=== PATIENT | male | born 1940 | race Caucasian/White ===

== ENCOUNTER → 2016-10-02 | Outpatient (CLI) | payer MEDICARE, MEDICAID | LOC: OD 10:56 | PROVIDERS: ATTEND Physician Assistant Medical | DX: R06.02 Shortness of breath (principal); J44.9 Chronic obstructive pulmonary disease, unspecified | CPT/HCPCS: 71020 ==

== ENCOUNTER → 2017-03-08 | Outpatient (CLI) | payer MEDICARE ==
--- NOTE | 2017-03-08 15:38 | RADIOLOGY REPORT (SQ) ---
EXAM DESCRIPTION: CT CHEST WITHOUT COMPLETED DATE/TIME: 03/08/2017 10:58 am REASON FOR STUDY: BRONCHIECTASIS J47.9 BRONCHIECTASIS, UNCOMPLICATED COMPARISON: None. TECHNIQUE: CT scan performed of the chest without intravenous contrast. Images reviewed with lung, soft tissue and bone windows. Reconstructed coronal and sagittal MPR images reviewed. All images st ored on PACS. All CT scanners at this facility use dose modulation, iterative reconstruction, and/or weight based d osing when appropriate to reduce radiation dose to as low as reasonably achievable (ALARA). [facility]: Dose Right [facility]: CareDose [facility]: Dose Right [facility]: Teradose 4D [facility]: Smart Cocodot RADIATION DOSE: Up-to-date CT equipment and radiation dose reduction techniques were employed. CTDIv ol: 8.1 mGy. DLP: 302 mGy-cm. mGy. LIMITATIONS: No technical limitations. FINDINGS: LUNGS AND PLEURA: Segmental bronchiectasis left lower lobe. Subsegmental bronchiectasis i n the lingula. No masses, infiltrates, pneumothorax. No pleural effusions, calcifications. HILAR AND MEDIASTINAL STRUCTURES: No identified masses or abnormal nodes. No obvious aneurysm. HEART AND VASCULAR STRUCTURES: No aneurysm. No pericardial effusion. UPPER ABDOMEN: No significant findings. Limited exam. THYROID AND OTHER SOFT TISSUES: No masses. No adenopathy. BONES: No significant finding. HARDWARE: None in the chest. OTHER: No other significant findings. IMPRESSION: Bronchiectasis left upper and lower lobes. No evidence of pulmonary fibrosis. TECHNICAL DOCUMENTATION: JOB ID: [id number] Quality ID # [id number]: Final reports with documentation of one or more dose reduction techniques (e.g., Au tomated exposure control, adjustment of the mA and/or kV according to patient size, use of iterative reconstruction technique) 2010 [employer] All Rights Reserved
== END ==
LOC: RAD 10:46
PROVIDERS: ATTEND Internal Medicine Pulmonary Disease
DX: J47.9 Bronchiectasis, uncomplicated (principal)
CPT/HCPCS: 71250

== ENCOUNTER 2017-05-17 12:23 | Inpatient (IN) | payer MEDICARE, MEDICAID ==
[2017-05-17] MEDS ORDERED: NORMAL SALINE 1000 ML 1,000 ML IV ONE (12:37)
[2017-05-17] MEDS ORDERED: NORMAL SALINE 500 ML IV ONE (12:37)
[2017-05-17 12:50] LABS: HEMATOCRIT 34.3 % (37.9-51.0); HEMOGLOBIN 11.3 g/dL (13.5-17.0); HGB HCT DIFFERENCE -0.4; MEAN CORPUSCULAR HEMOGLOBIN 27.8 pg (27.0-33.4); MEAN CORPUSCULAR HGB CONC 32.9 g/dL (32.0-36.0); MEAN CORPUSCULAR VOLUME 84 fl (80-97); RED BLOOD COUNT 4.06 10^6/uL (4.35-5.55); RED CELL DISTRIBUTION WIDTH 15.6 % (11.5-14.0); VENOUS BLOOD HCO3 29.6 mmol/L (20-32); VENOUS BLOOD PCO2 48.8 mmHg (35-63); VENOUS BLOOD PH 7.4 (7.30-7.42); WHITE BLOOD COUNT 11.4 10^3/uL (4.0-10.5)
[2017-05-17 12:58] LABS: PROTHROMBIN TIME 19.4 SEC (11.4-15.4)
--- NOTE | 2017-05-17 13:08 | RADIOLOGY REPORT (SQ) ---
EXAM DESCRIPTION: CHEST SINGLE VIEW COMPLETED DATE/TIME: 05/17/2017 12:55 pm REASON FOR STUDY: fever pna COMPARISON: Chest x-ray 10/02/[address] 03/08/2017 EXAM PARAMETERS: NUMBER OF VIEWS: One view. TECHNIQUE: Single frontal radiographic view of the chest acquired. RADIATION DOSE: NA LIMITATIONS: None. FINDINGS: LUNGS AND PLEURA: There is increased opacification left base. Patient has known bronchiec tasis. MEDIASTINUM AND HILAR STRUCTURES: No masses. Contour normal. HEART AND VASCULAR STRUCTURES: Heart normal in size. Normal vasculature. BONES: No acute findings. HARDWARE: None in the chest. OTHER: No other significant finding. IMPRESSION: Left lower lobe pneumonia superimposed upon bronchiectasis. TECHNICAL DOCUMENTATION: JOB ID: [id number]
[2017-05-17] MEDS ORDERED: LEVOFLOXACIN 500 MG/D5W RTU 500 MG/100 ML RTUPB IV ONE (13:13)
[2017-05-17 13:17] LABS: ALANINE AMINOTRANSFERASE 26 U/L (21-72); ALKALINE PHOSPHATASE 119 U/L (38-126); ANION GAP 15 (5-19); ASPARTATE AMINO TRANSFERASE 14 U/L (17-59); BILIRUBIN,DIRECT 0.4 mg/dL (0.0-0.4); BILIRUBIN,TOTAL 1.2 mg/dL (0.2-1.3); BLOOD UREA NITROGEN 15 mg/dL (7-20); CALCIUM 9.5 mg/dL (8.4-10.2); CARBON DIOXIDE 27 mmol/L (22-30); CHLORIDE 101 mmol/L (98-107); CREATININE RESULT 1.09 mg/dL (0.52-1.25); GLUCOSE 241 mg/dL (75-110); SODIUM 143.3 mmol/L (137-145); TOTAL PROTEIN 7.1 g/dL (6.3-8.2)
[2017-05-17 13:18] LABS: BASOPHILS % (MANUAL) 0 % (0-2); EOSINOPHILS % (MANUAL) 0 % (0-6); LYMPHOCYTES % (MANUAL) 3 % (13-45); TOTAL CELLS COUNTED 100
[2017-05-17 13:22] LABS: ANISOCYTOSIS 1+; OVALOCYTES 1+; POIKILOCYTOSIS 1+
[2017-05-17 13:23] LABS: HYPOCHROMASIA SLIGHT
[2017-05-17 13:30] LABS: TROPONIN I 0.029 ng/mL
[2017-05-17 13:37] LABS: APPEARANCE,URINE CLEAR; BILIRUBIN,URINE NEGATIVE (NEGATIVE); GLUCOSE, URINE NEGATIVE (NEGATIVE); KETONES,URINE NEGATIVE (NEGATIVE); LEUKOCYTE ESTERASE,URINE NEGATIVE (NEGATIVE); NITRITE,URINE NEGATIVE (NEGATIVE); PROTEIN,URINE NEGATIVE (NEGATIVE); URINE SPECIFIC GRAVITY 1.009; UROBILINOGEN,URINE NEGATIVE mg/dL (<2.0)
--- NOTE | 2017-05-17 14:02 | ER Document Report ---
ED General - General Chief Complaint: Productive Cough Stated Complaint: FEVER Time Seen by Provider: 05/17/17 12:36 TRAVEL OUTSIDE OF THE [place] IN LAST 30 DAYS: No - HPI Patient complains to provider of: Productive cough shortness of breath Notes: Patient presents today from home arrival by EMS for productive cough fever shortness of breath patient is on home O2 states increased and short of breath over the last few days. States productive cough with green sputum. Denies any chest pain abdominal pain. Patient states fever at home with night sweats and chills. Upon my evaluation patient has audible wheezing. Patient denies current history of smoking. Denies any recent hospitalizations or antibiotics. - Related Data Allergies/Adverse Reactions: No Known Allergies Allergy (Unverified 01/29/16 13:36) Past Medical History - Social History Smoking Status: Never Smoker Chew tobacco use (# tins/day): No Frequency of alcohol use: None Drug Abuse: None Family History: Reviewed & Not Pertinent Patient has suicidal ideation: No Patient has homicidal ideation: No - Past Medical History Cardiac Medical History: Reports: Hx Hypertension Denies: Hx Heart Attack Pulmonary Medical History: Reports: Hx Asthma, Hx COPD Neurological Medical History: Denies: Hx Cerebrovascular Accident, Hx Seizures Renal/ Medical History: Denies: Hx Peritoneal Dialysis GI Medical History: Denies: Hx Hepatitis, Hx Hiatal Hernia, Hx Ulcer Infectious Medical History: Denies: Hx Hepatitis Past Surgical History: Denies: Hx Open Heart Surgery, Hx Pacemaker Review of Systems - Review of Systems Constitutional: Chills, Fever EENT: No symptoms reported Cardiovascular: No symptoms reported Respiratory: Cough, Short of breath, Sputum, Wheezing Gastrointestinal: No symptoms reported Genitourinary: No symptoms reported Male Genitourinary: No symptoms reported Musculoskeletal: No symptoms reported Skin: No symptoms reported Hematologic/Lymphatic: No symptoms reported Neurological/Psychological: No symptoms reported -: Yes All other systems reviewed and negative Physical Exam - Vital signs Vitals: Temp Pulse Resp BP Pulse Ox 98.9 F 96 20 143/43 H 95 05/17/17 12:31 05/17/17 12:31 05/17/17 12:31 05/17/17 12:31 05/17/17 12:31 Interpretation: Normal - General General appearance: Appears well, Alert - HEENT Head: Normocephalic, Atraumatic Eyes: Normal Pupils: PERRL - Respiratory Respiratory status: No respiratory distress Chest status: Nontender Breath sounds: Rales, Rhonchi Chest palpation: Normal - Cardiovascular Rhythm: Regular Heart sounds: Normal auscultation Murmur: No - Abdominal Inspection: Normal Distension: No distension Bowel sounds: Normal Tenderness: Nontender Organomegaly: No organomegaly - Back Back: Normal, Nontender - Extremities General upper extremity: Normal inspection, Nontender, Normal color, Normal ROM , Normal temperature General lower extremity: Normal inspection, Nontender, Normal color, Normal ROM , Normal temperature, Normal weight bearing. No: Primo's sign - Neurological Neuro grossly intact: Yes Cognition: Normal Orientation: AAOx4 Carlos Coma Scale Eye Opening: Spontaneous [place] Coma Scale Verbal: Oriented Carlos Coma Scale Motor: Obeys Commands [place] Coma Scale Total: 15 Speech: Normal Motor strength normal: LUE, RUE, LLE, RLE Sensory: Normal - Psychological Associated symptoms: Normal affect, Normal mood - Skin Skin Temperature: Warm Skin Moisture: Dry Skin Color: Normal Course - Re-evaluation Re-evalutation: 05/17/17 15:42 Patient's evaluation and chest x-ray showed pneumonia. Will admit the patient for further evaluation to the hospital service. - Vital Signs Vital signs: Temp Pulse Resp BP Pulse Ox 98.9 F 96 21 H 119/105 H 96 05/17/17 12:31 05/17/17 12:31 05/17/17 15:03 05/17/17 15:03 05/17/17 15:03 - Laboratory Result Diagrams: 05/17/17 12:30 05/17/17 12:30 Laboratory results interpreted by me: 05/17/17 05/17/17 05/17/17 12:30 12:30 12:30 WBC 11.4 H RBC 4.06 L Hgb 11.3 L Hct 34.3 L RDW 15.6 H Seg Neuts % (Manual) 92 H Lymphocytes % (Manual) 3 L Abs Neuts (Manual) 10.5 H Abs Lymphs (Manual) 0.3 L PT 19.4 H Glucose 241 H Lactic Acid AST 14 L NT-Pro-B Natriuret Pep Urine Blood 05/17/17 05/17/17 05/17/17 12:30 12:30 13:10 WBC RBC Hgb Hct RDW Seg Neuts % (Manual) Lymphocytes % (Manual) Abs Neuts (Manual) Abs Lymphs (Manual) PT Glucose Lactic Acid 2.3 H AST NT-Pro-B Natriuret Pep 1330 H Urine Blood SMALL H Discharge - Discharge Clinical Impression: Pneumonia Qualifiers: Pneumonia type: due to unspecified organism Laterality: left Lung location: lower lobe of lung Qualified Code(s): J18.1 - Lobar pneumonia, unspecified organism COPD (chronic obstructive pulmonary disease) Qualifiers: COPD type: COPD with acute exacerbation Qualified Code(s): J44.1 - Chronic obstructive pulmonary disease with (acute) exacerbation Fever Qualifiers: Fever type: unspecified Qualified Code(s): R50.9 - Fever, unspecified Condition: Good Disposition: ADMITTED INPATIENT Admitting Provider: Maninder John Unit Admitted: Telemetry
[2017-05-17] MEDS ORDERED: ACETAMINOPHEN 325 MG TABLET PO PRN (15:00)
[2017-05-17] MEDS ORDERED: OXYCODONE HCL IR 5 MG TABLET PO PRN (15:11)
[2017-05-17] MEDS ORDERED: GLUCAGON,HUMAN RECOMB 1 MG INJ IM PRN (15:13)
[2017-05-17] MEDS ORDERED: DEXTROSE 50%-WATER 25 GM/50 ML DISP.SYRIN IV PRN ×2 (15:13)
[2017-05-17] MEDS ORDERED: DEXTROSE 40% GEL 15 GM TUBE PO PRN ×2 (15:13)
--- NOTE | 2017-05-17 15:24 | PDOC H&P ---
History of Present Illness Admission Date/PCP: 05/17/17 14:33 Patient complains of: Shortness of breath History of Present Illness: HAWA YANG is a 76 year old male, with long history of COPD apparently started to develop shortness of breath of 2-3 days duration. It is associated with cough productive of yellowish phlegm with associated wheezing. No paroxysmal nocturnal dyspnea nor orthopnea. No definite fever but there is sweating. There is mild pleurisy on the left. Symptoms persisted and would not go away. No sinus congestion or sore throat. No nausea or vomiting. No diarrhea. Patient went to the emergency room for evaluation. Patient found to have an infiltrate on chest x-ray. Antibiotics was given. As well as bronchodilators. Patient was then referred for admission. No dizziness lightheadedness or syncope. Past Medical History Cardiac Medical History: Reports: Hypertension Denies: Myocardial Infarction Pulmonary Medical History: Reports: Asthma, Chronic Obstructive Pulmonary Disease (COPD) Neurological Medical History: Denies: Seizures Endocrine Medical History: Reports: Diabetes Mellitus Type 2 GI Medical History: Denies: Hepatitis, Hiatal Hernia Hematology: Reports: Anemia - NOW ON IRON PILLS Denies: Sickle Cell Disease Past Surgical History Past Surgical History: Denies any surgery recently. Past Surgical History: Denies: Pacemaker Social History Information Source: Patient Smoking Status: Never Smoker Frequency of Alcohol Use: None Hx Recreational Drug Use: No Drugs: None Family History Family History: DM, Hypertension Parental Family History Reviewed: Yes Children Family History Reviewed: Yes Sibling(s) Family History Reviewed.: Yes Medication/Allergy Home Medications: Acetylcysteine [Nac] 500 mg PO BID 01/29/16 Albuterol Sulfate [Proair HFA] 1 - 2 puff IH Q4 PRN 01/29/16 Aspirin [Aspirin 81 mg Chewable Tablet] 81 mg PO DAILY 01/29/16 Budesonide/Formoterol Fumarate [Symbicort Hfa 160-4.5 Mcg Inhaler 6 gm] 2 puff IH Q12 01/29/16 Digoxin [Digitek] 125 mcg PO DAILY 01/29/16 Furosemide [Lasix 40 mg Tablet] 40 mg PO DAILY 01/29/16 Glipizide [Glipizide Xl] 10 mg PO DAILY 01/29/16 Iron Ps Complex/B12/Folic Acid [Ferrex 150 Forte Capsule] 1 each PO DAILY Levalbuterol HCl 1.25 mg IH Q6H 01/29/16 Lisinopril 5 mg PO DAILY 01/29/16 Metoprolol Succinate 25 mg PO DAILY 01/29/16 Montelukast Sodium [Singulair 10 mg Tablet] 10 mg PO QHS 01/29/16 Omeprazole 40 mg PO BID 01/29/16 Oxycodone HCl 5 mg PO Q4H PRN 01/29/16 Roflumilast [Daliresp 500 mcg Tablet] 500 mcg PO DAILY 01/29/16 Sertraline HCl 100 mg PO QHS 01/29/16 Tiotropium [place] [Spiriva Handihaler 18 mcg/dose (30 Dose)] 2 cap IH DAILY Iron Ps Complex/B12/Folic Acid [Ferrex 150 Forte Capsule] 1 each PO QHS Allergies/Adverse Reactions: No Known Allergies Allergy (Unverified 01/29/16 13:36) Review of Systems Constitutional: PRESENT: chills, weakness - Generalized. ABSENT: fever(s), headache(s), night sweats, weight gain, weight loss Eyes: ABSENT: visual disturbances Ears: ABSENT: hearing changes Nose, Mouth, and Throat: ABSENT: mouth pain, sore throat Cardiovascular: PRESENT: dyspnea on exertion - Chronic. ABSENT: chest pain, edema, orthropnea, palpitations Respiratory: PRESENT: cough, dyspnea, sputum. ABSENT: hemoptysis Gastrointestinal: ABSENT: abdominal pain, bloating, constipation, diarrhea, hematemesis, hematochezia, melena, nausea, vomiting Genitourinary: ABSENT: difficulty urinating, dysuria, hematuria Musculoskeletal: ABSENT: joint swelling Integumentary: ABSENT: rash, wounds Neurological: ABSENT: abnormal gait, abnormal speech, confusion, dizziness, focal weakness, syncope Psychiatric: ABSENT: anxiety, depression, homidical ideation, suicidal ideation Endocrine: ABSENT: cold intolerance, heat intolerance, polydipsia, polyphagia, polyuria Hematologic/Lymphatic: ABSENT: easy bleeding, easy bruising Physical Exam Vital Signs: Temp Pulse Resp BP Pulse Ox 98.9 F 96 21 H 119/105 H 96 05/17/17 12:31 05/17/17 12:31 05/17/17 15:03 05/17/17 15:03 05/17/17 15:03 Results Impressions: Chest X-Ray 05/17/17 12:37 IMPRESSION: Left lower lobe pneumonia superimposed upon bronchiectasis. Assessment & Plan - Diagnosis (1) Pneumonia Qualifiers: Pneumonia type: due to unspecified organism Laterality: left Lung location: lower lobe of lung Qualified Code(s): J18.1 - Lobar pneumonia, unspecified organism Is this a current diagnosis for this admission?: Yes (2) COPD (chronic obstructive pulmonary disease) Qualifiers: COPD type: COPD with acute exacerbation Qualified Code(s): J44.1 - Chronic obstructive pulmonary disease with (acute) exacerbation Is this a current diagnosis for this admission?: Yes (3) Bronchiectasis Qualifiers: Bronchiectasis type: uncomplicated Qualified Code(s): J47.9 - Bronchiectasis, uncomplicated Is this a current diagnosis for this admission?: Yes (4) Essential hypertension Is this a current diagnosis for this admission?: Yes (5) Type 2 diabetes mellitus Qualifiers: Diabetes mellitus complication status: with unspecified complications Diabetes mellitus intermodal dispatcher insulin use: without intermodal dispatcher use Qualified Code( s): E11.8 - Type 2 diabetes mellitus with unspecified complications Is this a current diagnosis for this admission?: Yes - Time Time Spent: 50 to 70 Minutes - Inpatient Certification Based on my medical assessment, after consideration of the patient's comorbidities, presenting symptoms, or acuity I expect that the services needed warrant INPATIENT care.: Yes Medical Necessity: Need Close Monitoring Due to Risk of Patient Decompensation, Need For IV Fluids, Need for IV Antibiotics, Risk of Diagnosis Which Will Require Inpatient Eval/Care/Monitoring Post 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 Culture the blood and sputum. The patient will be started on cefepime and ciprofloxacin intravenously. In the meantime we will put the patient on [id number] nebulizer and steroids. Supplemental oxygen will be given. Analgesics and antipyretics as needed will also be started. He will be on DVT prophylaxis with Lovenox. Sliding scale insulin will be done. Further testing depends on the initial evaluation as outlined above.
[2017-05-17] MEDS ORDERED: DIGOXIN 0.125 MG TABLET PO ONE (16:00)
[2017-05-17] MEDS ORDERED: CEFEPIME 2 GM/D5W RTU 2 GM/50 ML RTUPB IV ONE (16:00)
[2017-05-17] MEDS ORDERED: METOPROLOL SUCCINATE 25 MG TAB.SR.24H PO ONE (16:00)
[2017-05-17] MEDS ORDERED: LANSOPRAZOLE 30 MG TAB.RAP.DR PO ONE (16:00)
[2017-05-17] MEDS ORDERED: GLIPIZIDE XL 5 MG TAB.ER.24 PO ONE (16:00)
[2017-05-17] MEDS ORDERED: ASPIRIN 81 MG TABLET, CHEWABLE PO ONE (16:00)
[2017-05-17] MEDS ORDERED: LISINOPRIL 5 MG TABLET PO ONE (16:00)
[2017-05-17] MEDS ORDERED: PREDNISONE 20 MG TABLET PO ONE (16:00)
[2017-05-17] MEDS: IPRATROPIUM/ALBUTEROL 0.5-2.5 MG/3 ML AMPUL NEB SCH ×3 (16:57→23:51)
[2017-05-17] MEDS ORDERED: ACETYLCYSTEINE 500 MG PO SCH (18:00)
--- NOTE | 2017-05-17 18:14 | EKG REPORT ---
SEVERITY:- ABNORMAL ECG - SINUS RHYTHM LEFT ANTERIOR FASCICULAR BLOCK CONSIDER TRUE POSTERIOR WALL [place] , CLINICAL CORRELATION NEEDED. : Confirmed by: Quang Yan MD 17-May-2017 18:14:30
[2017-05-17] MEDS: LANSOPRAZOLE 30 MG TAB.RAP.DR PO SCH (18:16)
[2017-05-17] MEDS: SERTRALINE HCL 50 MG TABLET PO SCH (21:46)
[2017-05-17] MEDS: GUAIFENESIN 600 MG TABLET.SA PO SCH (21:46)
[2017-05-17] MEDS: INSULIN REG, HUMAN 100 UNIT/ML 3 ML VIAL (PYX) SUBCUT PRN (21:47)
[2017-05-18] MEDS: IPRATROPIUM/ALBUTEROL 0.5-2.5 MG/3 ML AMPUL NEB SCH ×5 (03:54→19:38)
[2017-05-18] MEDS ORDERED: LANSOPRAZOLE 30 MG TAB.RAP.DR PO SCH (06:00)
[2017-05-18] MEDS: CEFEPIME 2 GM/D5W RTU 2 GM/50 ML RTUPB IV SCH ×2 (06:25→18:19)
[2017-05-18 07:07] LABS: HEMATOCRIT 32.8 % (37.9-51.0); HEMOGLOBIN 10.8 g/dL (13.5-17.0); HGB HCT DIFFERENCE -0.4; MEAN CORPUSCULAR HEMOGLOBIN 27.6 pg (27.0-33.4); MEAN CORPUSCULAR HGB CONC 32.9 g/dL (32.0-36.0); MEAN CORPUSCULAR VOLUME 84 fl (80-97); RED CELL DISTRIBUTION WIDTH 15.3 % (11.5-14.0); WHITE BLOOD COUNT 8.5 10^3/uL (4.0-10.5)
[2017-05-18 07:25] LABS: ANION GAP 14 (5-19); BLOOD UREA NITROGEN 14 mg/dL (7-20); CALCIUM 9.3 mg/dL (8.4-10.2); CARBON DIOXIDE 26 mmol/L (22-30); CHLORIDE 102 mmol/L (98-107); CREATININE RESULT 0.93 mg/dL (0.52-1.25); GLUCOSE 211 mg/dL (75-110); POTASSIUM 4.3 mmol/L (3.6-5.0)
[2017-05-18 07:47] LABS: BASOPHILS % (MANUAL) 0 % (0-2); EOSINOPHILS % (MANUAL) 0 % (0-6); LYMPHOCYTES % (MANUAL) 3 % (13-45); TOTAL CELLS COUNTED 100
[2017-05-18 07:48] LABS: ANISOCYTOSIS SLIGHT; TOXIC GRANULATION 1+
[2017-05-18] MEDS: INSULIN REG, HUMAN 100 UNIT/ML 3 ML VIAL (PYX) SUBCUT PRN ×2 (09:12→18:19)
[2017-05-18] MEDS: LANSOPRAZOLE 30 MG TAB.RAP.DR PO SCH ×2 (09:13→18:19)
[2017-05-18] MEDS: ASPIRIN 81 MG TABLET, CHEWABLE PO SCH (09:13)
[2017-05-18] MEDS: ENOXAPARIN SODIUM INJ 40 MG/0.4 ML DISP.SYRIN SUBCUT SCH (09:13)
[2017-05-18] MEDS: GLIPIZIDE XL 5 MG TAB.ER.24 PO SCH (09:15)
[2017-05-18] MEDS: PREDNISONE 20 MG TABLET PO SCH (09:16)
[2017-05-18] MEDS: LISINOPRIL 10 MG TABLET PO SCH (09:16)
[2017-05-18] MEDS: GUAIFENESIN 600 MG TABLET.SA PO SCH ×2 (09:16→21:29)
[2017-05-18] MEDS: CIPROFLOXACIN 400 MG/D5W RTU 400 MG/200 ML RTUPB IV SCH ×2 (09:17→21:30)
[2017-05-18] MEDS: DIGOXIN 0.125 MG TABLET PO SCH (09:17)
[2017-05-18] MEDS: METOPROLOL SUCCINATE 25 MG TAB.SR.24H PO SCH (09:17)
[2017-05-18] MEDS: NORMAL SALINE 1000 ML 1,000 ML IV PRN (12:53)
--- NOTE | 2017-05-18 14:41 | PDOC PROGRESS REPORT ---
Subjective Progress Note for:: 05/18/17 Subjective:: Complains of cough. Physical Exam Vital Signs: Temp Pulse Resp BP Pulse Ox 97.3 F 73 18 117/88 H 100 05/18/17 12:15 05/18/17 12:15 05/18/17 12:15 05/18/17 12:15 05/18/17 12:15 Pulse Oximeter Continuous Start: 05/17/17 15: 05 Freq: RTQ4 Status: Active Document 05/18/17 12:15 LDA (Rec: 05/18/17 12:26 LDA [email or web address]) Pulse Oximetry Assessment Oxygen Saturation (92-100) 99 Oxygen Flow Rate (L/min) 2 Oxygen Delivery Method Nasal Cannula Equipment Usage Equipment in Use Continuous SpO2 Machine # n-[id number] Intake & Output 05/17/17 05/18/17 05/19/17 06:59 06:59 06:59 Intake Total 983 Output Total 650 Balance 333 Weight 72.575 kg General appearance: PRESENT: no acute distress Eye exam: PRESENT: conjunctiva pink. ABSENT: scleral icterus Mouth exam: PRESENT: moist, tongue midline Neck exam: ABSENT: JVD Respiratory exam: PRESENT: rhonchi - Coarse rhonchi bilaterally.. ABSENT: rales , wheezes Cardiovascular exam: PRESENT: RRR. ABSENT: diastolic murmur, rubs, systolic murmur GI/Abdominal exam: PRESENT: normal bowel sounds, soft. ABSENT: distended, guarding, mass, organolmegaly, rebound, tenderness Extremities exam: ABSENT: calf tenderness, clubbing, pedal edema Neurological exam: PRESENT: alert, awake, oriented to person, oriented to place , oriented to time, oriented to situation, CN II-XII grossly intact. ABSENT: motor sensory deficit Psychiatric exam: PRESENT: appropriate affect Skin exam: PRESENT: dry, intact, warm. ABSENT: cyanosis, rash Results Laboratory Results: 05/18/17 06:31 05/18/17 06:31 05/17/17 05/18/17 05/18/17 17:15 06:31 06:31 WBC 8.5 RBC 3.90 L Hgb 10.8 L Hct 32.8 L MCV 84 MCH 27.6 MCHC 32.9 RDW 15.3 H Plt Count 200 Seg Neutrophils % Not Reportable Lymphocytes % Not Reportable Monocytes % Not Reportable Eosinophils % Not Reportable Basophils % Not Reportable Absolute Neutrophils Not Reportable Absolute Lymphocytes Not Reportable Absolute Monocytes Not Reportable Absolute Eosinophils Not Reportable Absolute Basophils Not Reportable Sodium 142.0 Potassium 4.3 Chloride 102 Carbon Dioxide 26 Anion Gap 14 BUN 14 Creatinine 0.93 Est GFR ( Amer) > 60 Est GFR (Non-Af Amer) > 60 Glucose 211 H Lactic Acid 2.2 H Calcium 9.3 Impressions: Chest X-Ray 05/17/17 12:37 IMPRESSION: Left lower lobe pneumonia superimposed upon bronchiectasis. Assessment & Plan - Diagnosis (1) Pneumonia Qualifiers: Pneumonia type: due to unspecified organism Laterality: left Lung location: lower lobe of lung Qualified Code(s): J18.1 - Lobar pneumonia, unspecified organism Is this a current diagnosis for this admission?: Yes Plan: Patient has pneumonia superimposed on the chronic bronchiectasis. Has been started on cefepime and Cipro. Cultures are negative so far. Also continue with nebulizers. (2) Bronchiectasis Qualifiers: Bronchiectasis type: uncomplicated Qualified Code(s): J47.9 - Bronchiectasis, uncomplicated Is this a current diagnosis for this admission?: Yes Plan: Continue with antibiotics and prednisone. (3) COPD (chronic obstructive pulmonary disease) Qualifiers: COPD type: COPD with acute exacerbation Qualified Code(s): J44.1 - Chronic obstructive pulmonary disease with (acute) exacerbation Is this a current diagnosis for this admission?: Yes Plan: Continue with steroids and nebulizers. (4) Essential hypertension Is this a current diagnosis for this admission?: Yes (5) Type 2 diabetes mellitus Qualifiers: Diabetes mellitus complication status: with unspecified complications Diabetes mellitus [facility] insulin use: without termite control servicer use Qualified Code( s): E11.8 - Type 2 diabetes mellitus with unspecified complications Is this a current diagnosis for this admission?: Yes Plan: Continue with oral agents and sliding scale insulin. - Time Time Spent with patient: 25-34 minutes - Inpatient Certification Medical Necessity: Need for IV Antibiotics
[2017-05-18] MEDS: SERTRALINE HCL 50 MG TABLET PO SCH (21:29)
[2017-05-18] MEDS: IPRATROPIUM BROMIDE 0.02% NEB 0.5 MG/2.5 ML AMPUL NEB SCH (22:08)
[2017-05-18] MEDS: LEVALBUTEROL HCL NEB 1.25 MG/3 ML AMPUL NEB SCH (22:09)
[2017-05-19] MEDS: IPRATROPIUM/ALBUTEROL 0.5-2.5 MG/3 ML AMPUL NEB SCH
[2017-05-19] MEDS: LEVALBUTEROL HCL NEB 1.25 MG/3 ML AMPUL NEB SCH ×4 (01:54→19:35)
[2017-05-19] MEDS: IPRATROPIUM BROMIDE 0.02% NEB 0.5 MG/2.5 ML AMPUL NEB SCH ×4 (01:54→19:35)
[2017-05-19] MEDS: NORMAL SALINE 1000 ML 1,000 ML IV PRN ×2 (03:16→22:45)
[2017-05-19] MEDS: CEFEPIME 2 GM/D5W RTU 2 GM/50 ML RTUPB IV SCH ×2 (05:06→17:39)
[2017-05-19 07:17] LABS: ABSOLUTE BASOPHILS # (AUTO) 0.1 10^3/uL (0.0-0.2); ABSOLUTE LYMPHOCYTES (AUTO) 1.2 10^3/uL (0.5-4.7); ABSOLUTE NEUT (AUTO) 10.2 10^3/uL (1.7-8.2); BASOPHILS % (AUTO) 0.6 % (0-2); EOSINOPHILS % (AUTO) 0.2 % (0-6); HEMATOCRIT 31.3 % (37.9-51.0); HEMOGLOBIN 10.3 g/dL (13.5-17.0); HGB HCT DIFFERENCE -0.4; LYMPHOCYTES % (AUTO) 9.7 % (13-45); MEAN CORPUSCULAR HEMOGLOBIN 27.8 pg (27.0-33.4); MEAN CORPUSCULAR VOLUME 84 fl (80-97); MONOCYTES % (AUTO) 7.9 % (3-13); RED BLOOD COUNT 3.71 10^6/uL (4.35-5.55); RED CELL DISTRIBUTION WIDTH 15.4 % (11.5-14.0); SEGMENTED NEUTROPHILS % (AUTO) 81.6 % (42-78); WHITE BLOOD COUNT 12.5 10^3/uL (4.0-10.5)
[2017-05-19 07:38] LABS: ANION GAP 11 (5-19); BLOOD UREA NITROGEN 21 mg/dL (7-20); CALCIUM 9.5 mg/dL (8.4-10.2); CARBON DIOXIDE 25 mmol/L (22-30); CHLORIDE 106 mmol/L (98-107); GLUCOSE 99 mg/dL (75-110); POTASSIUM 4.2 mmol/L (3.6-5.0); SODIUM 141.8 mmol/L (137-145)
[2017-05-19] MEDS: CIPROFLOXACIN 400 MG/D5W RTU 400 MG/200 ML RTUPB IV SCH (09:54)
[2017-05-19] MEDS: METOPROLOL SUCCINATE 25 MG TAB.SR.24H PO SCH (09:56)
[2017-05-19] MEDS: DIGOXIN 0.125 MG TABLET PO SCH (09:56)
[2017-05-19] MEDS: GUAIFENESIN 600 MG TABLET.SA PO SCH ×2 (09:56→22:34)
[2017-05-19] MEDS: ASPIRIN 81 MG TABLET, CHEWABLE PO SCH (09:56)
[2017-05-19] MEDS: LISINOPRIL 10 MG TABLET PO SCH (09:57)
[2017-05-19] MEDS: LANSOPRAZOLE 30 MG TAB.RAP.DR PO SCH ×2 (09:57→17:38)
[2017-05-19] MEDS: GLIPIZIDE XL 5 MG TAB.ER.24 PO SCH (09:57)
[2017-05-19] MEDS: PREDNISONE 20 MG TABLET PO SCH (09:57)
[2017-05-19] MEDS: ENOXAPARIN SODIUM INJ 40 MG/0.4 ML DISP.SYRIN SUBCUT SCH (09:58)
--- NOTE | 2017-05-19 11:29 | PDOC PROGRESS REPORT ---
Subjective Progress Note for:: 05/19/17 Subjective:: Complains of cough. Physical Exam Vital Signs: Temp Pulse Resp BP Pulse Ox 97.5 F 61 20 133/56 H 99 05/19/17 07:08 05/19/17 07:08 05/19/17 07:08 05/19/17 07:08 05/19/17 07:08 Pulse Oximeter Continuous Start: 05/17/17 15: 05 Freq: RTQ4 Status: Active Document 05/19/17 03:56 STI (Rec: 05/19/17 03:56 STI [email or web address]) Pulse Oximetry Assessment Oxygen Saturation (92-100) 95 Oxygen Flow Rate (L/min) 3.0 Oxygen Delivery Method Nasal Cannula Fraction of Inspired Oxygen (FIO2) 32 Equipment Usage Equipment in Use Continuous SpO2 Machine # N-1 Intake & Output 05/18/17 05/19/17 05/20/17 06:59 06:59 06:59 Intake Total 983 3896 Output Total 650 1225 Balance 333 2671 Weight 72.575 kg 83.5 kg General appearance: PRESENT: no acute distress Eye exam: PRESENT: conjunctiva pink. ABSENT: scleral icterus Mouth exam: PRESENT: moist, tongue midline Neck exam: ABSENT: JVD Respiratory exam: PRESENT: rhonchi - Bilateral coarse rhonchi.. ABSENT: rales, wheezes Cardiovascular exam: PRESENT: RRR. ABSENT: diastolic murmur, rubs, systolic murmur GI/Abdominal exam: PRESENT: normal bowel sounds, soft. ABSENT: distended, guarding, mass, organolmegaly, rebound, tenderness Extremities exam: ABSENT: calf tenderness, clubbing, pedal edema Neurological exam: PRESENT: alert, awake, oriented to person, oriented to place , oriented to time, oriented to situation, CN II-XII grossly intact. ABSENT: motor sensory deficit Psychiatric exam: PRESENT: appropriate affect Skin exam: PRESENT: dry, intact, warm. ABSENT: cyanosis, rash Results Laboratory Results: 05/19/17 06:44 05/19/17 06:44 05/19/17 05/19/17 06:44 06:44 WBC 12.5 H RBC 3.71 L Hgb 10.3 L Hct 31.3 L MCV 84 MCH 27.8 MCHC 33.0 RDW 15.4 H Plt Count 259 Seg Neutrophils % 81.6 H Lymphocytes % 9.7 L Monocytes % 7.9 Eosinophils % 0.2 Basophils % 0.6 Absolute Neutrophils 10.2 H Absolute Lymphocytes 1.2 Absolute Monocytes 1.0 Absolute Eosinophils 0.0 Absolute Basophils 0.1 Sodium 141.8 Potassium 4.2 Chloride 106 Carbon Dioxide 25 Anion Gap 11 BUN 21 H Creatinine 1.00 Est GFR ( Amer) > 60 Est GFR (Non-Af Amer) > 60 Glucose 99 Calcium 9.5 Impressions: Chest X-Ray 05/17/17 12:37 IMPRESSION: Left lower lobe pneumonia superimposed upon bronchiectasis. Assessment & Plan - Diagnosis (1) Pneumonia Qualifiers: Pneumonia type: due to unspecified organism Laterality: left Lung location: lower lobe of lung Qualified Code(s): J18.1 - Lobar pneumonia, unspecified organism Is this a current diagnosis for this admission?: Yes Plan: Patient has pneumonia superimposed on the chronic bronchiectasis. Currently is on cefepime and Cipro. Cultures are negative so far. Also continue with nebulizers. (2) Bronchiectasis Qualifiers: Bronchiectasis type: uncomplicated Qualified Code(s): J47.9 - Bronchiectasis, uncomplicated Is this a current diagnosis for this admission?: Yes Plan: Continue with antibiotics and prednisone. (3) COPD (chronic obstructive pulmonary disease) Qualifiers: COPD type: COPD with acute exacerbation Qualified Code(s): J44.1 - Chronic obstructive pulmonary disease with (acute) exacerbation Is this a current diagnosis for this admission?: Yes Plan: Continue with steroids and nebulizers. (4) Essential hypertension Is this a current diagnosis for this admission?: Yes Plan: Blood pressure is under good control. (5) Type 2 diabetes mellitus Qualifiers: Diabetes mellitus complication status: with unspecified complications Diabetes mellitus long-term insulin use: without long-term use Qualified Code( s): E11.8 - Type 2 diabetes mellitus with unspecified complications Is this a current diagnosis for this admission?: Yes Plan: Continue with oral agents and sliding scale insulin. - Time Time Spent with patient: 25-34 minutes - Inpatient Certification Medical Necessity: Need for IV Antibiotics
[2017-05-19] MEDS: INSULIN REG, HUMAN 100 UNIT/ML 3 ML VIAL (PYX) SUBCUT PRN ×2 (17:37→22:36)
[2017-05-19] MEDS: CIPROFLOXACIN HCL 500 MG TABLET PO SCH (22:34)
[2017-05-19] MEDS: SERTRALINE HCL 50 MG TABLET PO SCH (22:34)
[2017-05-20] MEDS: LEVALBUTEROL HCL NEB 1.25 MG/3 ML AMPUL NEB SCH ×3 (02:28→14:04)
[2017-05-20] MEDS: IPRATROPIUM BROMIDE 0.02% NEB 0.5 MG/2.5 ML AMPUL NEB SCH ×3 (02:28→14:03)
[2017-05-20] MEDS: CEFEPIME 2 GM/D5W RTU 2 GM/50 ML RTUPB IV SCH (05:02)
[2017-05-20 06:59] LABS: ABSOLUTE BASOPHILS # (AUTO) 0.1 10^3/uL (0.0-0.2); ABSOLUTE LYMPHOCYTES (AUTO) 0.8 10^3/uL (0.5-4.7); ABSOLUTE MONOCYTES (AUTO) 0.9 10^3/uL (0.1-1.4); ABSOLUTE NEUT (AUTO) 9.4 10^3/uL (1.7-8.2); BASOPHILS % (AUTO) 0.7 % (0-2); HEMATOCRIT 30.3 % (37.9-51.0); HEMOGLOBIN 10.2 g/dL (13.5-17.0); HGB HCT DIFFERENCE 0.3; LYMPHOCYTES % (AUTO) 6.7 % (13-45); MEAN CORPUSCULAR HEMOGLOBIN 28.2 pg (27.0-33.4); MEAN CORPUSCULAR HGB CONC 33.5 g/dL (32.0-36.0); MEAN CORPUSCULAR VOLUME 84 fl (80-97); MONOCYTES % (AUTO) 8.3 % (3-13); RED CELL DISTRIBUTION WIDTH 15.5 % (11.5-14.0); SEGMENTED NEUTROPHILS % (AUTO) 84.3 % (42-78); WHITE BLOOD COUNT 11.2 10^3/uL (4.0-10.5)
[2017-05-20 07:18] LABS: ANION GAP 10 (5-19); BLOOD UREA NITROGEN 21 mg/dL (7-20); CALCIUM 9.1 mg/dL (8.4-10.2); CARBON DIOXIDE 25 mmol/L (22-30); CHLORIDE 107 mmol/L (98-107); CREATININE RESULT 0.96 mg/dL (0.52-1.25); GLUCOSE 122 mg/dL (75-110); POTASSIUM 4.5 mmol/L (3.6-5.0); SODIUM 141.9 mmol/L (137-145)
[2017-05-20] MEDS: DIGOXIN 0.125 MG TABLET PO SCH (09:11)
[2017-05-20] MEDS: ASPIRIN 81 MG TABLET, CHEWABLE PO SCH (09:13)
[2017-05-20] MEDS: CIPROFLOXACIN HCL 500 MG TABLET PO SCH (09:13)
[2017-05-20] MEDS: GUAIFENESIN 600 MG TABLET.SA PO SCH (09:13)
[2017-05-20] MEDS: LISINOPRIL 10 MG TABLET PO SCH (09:13)
[2017-05-20] MEDS: PREDNISONE 20 MG TABLET PO SCH (09:13)
[2017-05-20] MEDS: METOPROLOL SUCCINATE 25 MG TAB.SR.24H PO SCH (09:13)
[2017-05-20] MEDS: LANSOPRAZOLE 30 MG TAB.RAP.DR PO SCH (09:14)
[2017-05-20] MEDS: GLIPIZIDE XL 5 MG TAB.ER.24 PO SCH (09:14)
[2017-05-20] MEDS: ENOXAPARIN SODIUM INJ 40 MG/0.4 ML DISP.SYRIN SUBCUT SCH (09:14)
--- NOTE | 2017-05-20 10:55 | PDOC DISCHARGE SUMMARY ---
General - Admit/Disc Date/PCP Admission Date/Primary Care Provider: 05/17/17 15:00 MARCELO GIORDANO MD Discharge Date: 05/20/17 - Discharge Diagnosis (1) Pneumonia Is this a current diagnosis for this admission?: Yes Summary: Cultures have been negative. The patient was initially put on cefepime and Cipro. Will be sent home on a course of Ceftin and Cipro for 10 additional days. (2) Bronchiectasis Is this a current diagnosis for this admission?: Yes Summary: Patient is to complete a prednisone taper. (3) COPD (chronic obstructive pulmonary disease) Is this a current diagnosis for this admission?: Yes (4) Essential hypertension Is this a current diagnosis for this admission?: Yes (5) Type 2 diabetes mellitus Is this a current diagnosis for this admission?: Yes - Additional Information Discharge Diet: Cardiac, Diabetic Discharge Activity: Activity As Tolerated Home Medications: Acetylcysteine [Nac] 500 mg PO BID 01/29/16 Albuterol Sulfate [Proair HFA] 1 - 2 puff IH Q4 PRN 01/29/16 Aspirin [Aspirin 81 mg Chewable Tablet] 81 mg PO DAILY 01/29/16 Budesonide/Formoterol Fumarate [Symbicort HFA 160-4.5 mcg Inhaler 6 gm] 2 puff IH Q12 01/29/16 Digoxin [Digitek] 125 mcg PO DAILY 01/29/16 Furosemide [Lasix 40 mg Tablet] 40 mg PO DAILY 01/29/16 Glipizide [Glipizide Xl] 10 mg PO DAILY 01/29/16 Iron Ps Complex/B12/Folic Acid [Ferrex 150 Forte Capsule] 1 each PO DAILY Levalbuterol HCl 1.25 mg IH Q6H 01/29/16 Lisinopril 5 mg PO DAILY 01/29/16 Metoprolol Succinate 25 mg PO DAILY 01/29/16 Montelukast Sodium [Singulair 10 mg Tablet] 10 mg PO QHS 01/29/16 Omeprazole 40 mg PO BID 01/29/16 Oxycodone HCl 5 mg PO Q4H PRN 01/29/16 Roflumilast [Daliresp 500 mcg Tablet] 500 mcg PO DAILY 01/29/16 Sertraline HCl 100 mg PO QHS 01/29/16 Tiotropium Thornton [Spiriva Handihaler 18 mcg/dose (30 Dose)] 2 cap IH DAILY Iron Ps Complex/B12/Folic Acid [Ferrex 150 Forte Capsule] 1 each PO QHS Cefuroxime Axetil [Ceftin 500 mg Tablet] 1 tab PO BID #20 tablet 05/20/17 Ciprofloxacin HCl [Cipro 500 mg Tablet] 500 mg PO Q12 #20 tablet 05/20/17 Prednisone [Deltasone 20 mg Tablet] 10 mg PO DAILY #39 tablet 05/20/17 History of Present Illness History of Present Illness: HAWA YANG is a 77 year old male with a long history of COPD who presented with a 2-3 day duration shortness of breath. Patient also had a cough productive of yellow sputum and wheezing. The patient had some sweating but no fever. He presented to the emergency room and was found to have a infiltrate on the chest x-ray. Patient is admitted for treatment of pneumonia. He also has a history of bronchiectasis. Hospital Course Hospital Course: 77-year-old male who presented with shortness of breath for 3 days along with wheezing. Patient was found to have pneumonia superimposed on chronic bronchiectasis. Patient was started on steroids as well as cefepime and Cipro. Patient was put on Cipro because of some concern about the possibility of Pseudomonas. The patient's cultures however have all remained negative. The patient has clinically improved and still has a few expiratory wheezes but overall is clinically improved. The patient will be sent home on 10 additional days of Ceftin and Cipro. Patient also will be sent home on a prednisone taper for his COPD and bronchiectasis. The patient's other medical problems were stable during this hospitalization. Physical Exam Vital Signs: Temp Pulse Resp BP Pulse Ox 97.5 F 65 20 146/66 H 97 05/20/17 03:20 05/20/17 08:12 05/20/17 08:12 05/20/17 03:20 05/20/17 08:12 Pulse Oximeter Continuous Start: 05/17/17 15: 05 Freq: RTQ4 Status: Active Document 05/20/17 08:12 HCR (Rec: 05/20/17 09:27 HCR [email or web address]) Pulse Oximetry Assessment Oxygen Saturation (92-100) 97 Oxygen Flow Rate (L/min) 2 Oxygen Delivery Method Nasal Cannula Equipment Usage Equipment in Use Continuous Pulse Oximeter 24 Hour Charge Charge Now Continuous SpO2 Machine # 1 Intake & Output 05/19/17 05/20/17 05/21/17 06:59 06:59 06:59 Intake Total 3896 2553 Output Total 1225 1600 Balance 2671 953 Weight 83.5 kg 82.7 kg General appearance: PRESENT: no acute distress Eye exam: PRESENT: conjunctiva pink. ABSENT: scleral icterus Mouth exam: PRESENT: moist, tongue midline Neck exam: ABSENT: JVD Respiratory exam: PRESENT: rhonchi - Scattered coarse rhonchi.. ABSENT: rales, wheezes Cardiovascular exam: PRESENT: RRR. ABSENT: diastolic murmur, rubs, systolic murmur GI/Abdominal exam: PRESENT: normal bowel sounds, soft. ABSENT: distended, guarding, mass, organolmegaly, rebound, tenderness Extremities exam: ABSENT: calf tenderness, clubbing, pedal edema Neurological exam: PRESENT: alert, awake, oriented to person, oriented to place , oriented to time, oriented to situation, CN II-XII grossly intact. ABSENT: motor sensory deficit Psychiatric exam: PRESENT: appropriate affect Skin exam: PRESENT: dry, intact, warm. ABSENT: cyanosis, rash Results Laboratory Results: 05/20/17 06:03 05/20/17 06:03 05/20/17 05/20/17 06:03 06:03 WBC 11.2 H RBC 3.60 L Hgb 10.2 L Hct 30.3 L MCV 84 MCH 28.2 MCHC 33.5 RDW 15.5 H Plt Count 226 Seg Neutrophils % 84.3 H Lymphocytes % 6.7 L Monocytes % 8.3 Eosinophils % 0.0 Basophils % 0.7 Absolute Neutrophils 9.4 H Absolute Lymphocytes 0.8 Absolute Monocytes 0.9 Absolute Eosinophils 0.0 Absolute Basophils 0.1 Sodium 141.9 Potassium 4.5 Chloride 107 Carbon Dioxide 25 Anion Gap 10 BUN 21 H Creatinine 0.96 Est GFR ( Amer) > 60 Est GFR (Non-Af Amer) > 60 Glucose 122 H Calcium 9.1 Impressions: Chest X-Ray 05/17/17 12:37 IMPRESSION: Left lower lobe pneumonia superimposed upon bronchiectasis. Qualifiers PATEINT BEING DISCHARGED WITH ANY OF THE FOLLOWING DIAGNOSIS?: No Plan Discharge Plan: Patient is discharged home in stable condition. He will follow-up with his primary care doctor in 1 week. Time Spent: Greater than 30 Minutes
[2017-05-20 11:54] VITALS: BP 143/64
[2017-05-20] MEDS ORDERED: INFLUENZA ADLT QUAD (36MOS+) 2017-18 VAC 0.5 ML SYR IM PRN (12:46)
[2017-05-20] MEDS ORDERED: GUAIFENESIN 600 MG TABLET.SA PO SCH (22:00)
== END 2017-05-20 17:09 | disposition home or self-care (01) | DRG 194 ==
LOC: ER 12:23 → UNDOADMIN 14:33 → EH 14:33 → 4S 16:51
DX: J18.9 Pneumonia, unspecified organism (principal); J44.1 Chronic obstructive pulmonary disease with (acute) exacerbation; I10 Essential (primary) hypertension; E11.9 Type 2 diabetes mellitus without complications; D64.9 Anemia, unspecified; Z83.3 Family history of diabetes mellitus; Z82.49 Family history of ischemic heart disease and other diseases of the circulatory system; Z79.82 Long term (current) use of aspirin; Z79.899 Other long term (current) drug therapy; Z79.84 Long term (current) use of oral hypoglycemic drugs
CPT/HCPCS: 36415; 71010; 80048; 80053; 80162; 81001; 82803; 82962; 83605; 83880; 84484; 85025; 85610; 87040; 87086; 93005; 93010; 94640; 94762; 96361; 96365; 99285; J0692; J0744; J1650; J1815; J1956; J3490; J7030; J7040; J7512; J7620

== ENCOUNTER 2017-10-22 20:57 | Observation (INO) | payer MEDICARE ==
[2017-10-22] MEDS ORDERED: ASPIRIN 81 MG TABLET, CHEWABLE PO ONE (21:07)
--- NOTE | 2017-10-22 21:20 | ER Document Report ---
ED Cardiac - General Chief Complaint: Chest Pain Stated Complaint: CHEST PAIN Time Seen by Provider: 10/22/17 21:07 Mode of Arrival: Medic Information source: Patient Notes: Patient presents stating that he had chest pain that started yesterday around 6 PM. Patient was given nitroglycerin per EMS and his chest pain resolved. Patient reports mild cough but does have a history of COPD. Patient denies any nausea, vomiting or fever. Patient denies any dyspnea. Patient states that he has had increased falls over the past several days falling 2 times yesterday. Patient does complain of left elbow pain with an overlying abrasion. Patient states that his tetanus immunization is currently up-to-date. TRAVEL OUTSIDE OF THE [place] IN LAST 30 DAYS: No - HPI Patient complains to provider of: Chest pain Was the onset of pain: Gradual Chest pain location: Under breast Quality of pain: Sharp Pain level currently: Denies Cardiac risk factors: Diabetes, Hypertension, Hx CHF Associated symptoms: denies: Abdominal pain, Anxiety, Back pain, Dizziness, Nausea/vomiting, Neck pain, Palpitations, Shortness of breath Exacerbated by: Denies Relieved by: NTG Similar symptoms previously: No Recently seen / treated by doctor: No - Related Data Allergies/Adverse Reactions: No Known Allergies Allergy (Verified 10/22/17 21:00) Past Medical History - General Information source: Patient - Social History Smoking Status: Former Smoker Frequency of alcohol use: None Drug Abuse: None Occupation: none Lives with: Family Family History: Reviewed & Not Pertinent - Past Medical History Cardiac Medical History: Reports: Hx Congestive Heart Failure, Hx Hypertension Denies: Hx Heart Attack Pulmonary Medical History: Reports: Hx Asthma, Hx COPD Neurological Medical History: Reports: Hx Cerebrovascular Accident. Denies: Hx Seizures Endocrine Medical History: Reports: Hx Diabetes Mellitus Type 2 Renal/ Medical History: Denies: Hx Peritoneal Dialysis GI Medical History: Denies: Hx Hepatitis, Hx Hiatal Hernia, Hx Ulcer Infectious Medical History: Denies: Hx Hepatitis Past Surgical History: Reports: Hx Herniorrhaphy. Denies: Hx Open Heart Surgery , Hx Pacemaker - Immunizations Hx Diphtheria, Pertussis, Tetanus Vaccination: Yes Review of Systems - Review of Systems Constitutional: No symptoms reported. denies: Fever, Recent illness EENT: denies: No symptoms reported Cardiovascular: Chest pain. denies: Palpitations Respiratory: Cough. denies: Short of breath Gastrointestinal: No symptoms reported. denies: Abdominal pain, Diarrhea, Nausea, Vomiting Genitourinary: No symptoms reported Male Genitourinary: No symptoms reported Musculoskeletal: Joint pain - left elbow. denies: Back pain Skin: Other - abrasion to right hand, left elbow Hematologic/Lymphatic: No symptoms reported Neurological/Psychological: No symptoms reported. denies: Lost consciousness, Headaches Physical Exam - Vital signs Vitals: Temp 98.3 F 10/22/17 21:00 - General General appearance: Appears well, Alert In distress: None - HEENT Head: Normocephalic, Atraumatic. No: Hatch's sign, Ecchymosis, Racoon's eyes, Tenderness Eyes: Normal Conjunctiva: Normal Pupils: PERRL Ears: Normal External canal: Normal Tympanic membrane: Normal. No: Hemotympanum Mucous membranes: Normal Pharynx: Normal. No: Erythema, Tonsillar hypertrophy Neck: Normal. No: Lymphadenopathy, Meningismus, Supple Notes: no midline tenderness/step off or deformity - Respiratory Respiratory status: No respiratory distress Chest status: Nontender Breath sounds: Nonproductive cough, Wheezing Chest palpation: Normal. No: Tender, Ecchymosis - Cardiovascular Rhythm: Regular Heart sounds: S1 appreciated, S2 appreciated Murmur: No - Abdominal Inspection: Normal Distension: No distension Bowel sounds: Normal Tenderness: Nontender Organomegaly: No organomegaly - Back Back: Normal, Nontender. No: CVA tenderness, Vertebra tenderness - Extremities General upper extremity: Tender - left elbow General lower extremity: Normal inspection, Normal strength Shoulder: Normal, Nontender Arm: Normal, Nontender Elbow: Tender - left, Abrasion. No: Deformity, Dislocation, Ecchymosis, Limited ROM Forearm: Normal, Nontender Wrist: Normal, Nontender Hand: Nontender, Abrasion - right lateral hand Hip: Normal, Nontender Thigh: Normal, Nontender Knee: Normal, Nontender Ankle: Normal, Nontender Foot: Normal, Nontender - Neurological Neuro grossly intact: Yes Cognition: Normal [place] Coma Scale Eye Opening: Spontaneous [place] Coma Scale Verbal: Oriented Carlos Coma Scale Motor: Obeys Commands [place] Coma Scale Total: 15 - Psychological Associated symptoms: Normal affect, Normal mood - Skin Skin Temperature: Warm Skin Moisture: Dry Skin irregularity: other - abrasion to right hand, left elbow Course - Re-evaluation Re-evalutation: 10/22/17 23:03 Patient continues to deny any chest pain at this time. Patient's heart monitor appears to be in A. fib, repeat EKG ordered. Consulted with Dr. Kidd regarding patient presentation, reviewed diagnostic test results, agrees with plan to consult with hospitalist for admission. Call placed to hospitalist extension, no answer. 10/22/17 23:16 Spoke with mud mixer operator who recommended trying extension [phone] attempt to get in touch with hospitalist. No answer. Call again placed to extension [phone], no answer. 10/22/17 23:36 called mud mixer operator to help contact hospitalist. Machine Rigger states that hospitalist is not taking any additional calls at this time as he is attempting to get a patient transferred 10/22/17 23:[address] Montoya who agrees to accept patient as a telemetry observation admission. Patient is agreeable with this plan of care. - Vital Signs Vital signs: Temp Pulse Resp BP Pulse Ox 98.2 F 18 146/66 H 99 10/23/17 01:20 10/23/17 02:01 10/23/17 02:01 10/23/17 02:01 - Laboratory Result Diagrams: 10/22/17 21:05 10/22/17 21:05 Laboratory results interpreted by me: 10/22/17 10/22/17 10/22/17 21:05 21:05 21:05 RBC 4.23 L Hgb 11.8 L Hct 35.9 L RDW 14.8 H Carbon Dioxide 31 H Digoxin 0.77 L Labs- Entire Visit 10/22/17 10/22/17 10/22/17 21:05 21:05 21:05 WBC 9.6 RBC 4.23 L Hgb 11.8 L Hct 35.9 L MCV 85 MCH 27.9 MCHC 32.9 RDW 14.8 H Plt Count 221 Seg Neutrophils % 70.4 Lymphocytes % 17.0 Monocytes % 11.3 Eosinophils % 1.0 Basophils % 0.3 Absolute Neutrophils 6.8 Absolute Lymphocytes 1.6 Absolute Monocytes 1.1 Absolute Eosinophils 0.1 Absolute Basophils 0.0 PT 14.9 INR 1.09 Sodium 141.8 Potassium 3.6 Chloride 101 Carbon Dioxide 31 H Anion Gap 10 BUN 19 Creatinine 1.12 Est GFR ( Amer) > 60 Est GFR (Non-Af Amer) > 60 Glucose 95 Calcium 9.4 Magnesium Total Bilirubin 0.6 Direct Bilirubin 0.3 Neonat Total Bilirubin Not Reportable Neonat Direct Bilirubin Not Reportable Neonat Indirect Bili Not Reportable AST 22 ALT 32 Alkaline Phosphatase 99 Creatine Kinase 157 CK-MB (CK-2) Troponin I Total Protein 6.8 Albumin 4.0 Digoxin 10/22/17 10/22/17 21:05 21:05 WBC RBC Hgb Hct MCV MCH MCHC RDW Plt Count Seg Neutrophils % Lymphocytes % Monocytes % Eosinophils % Basophils % Absolute Neutrophils Absolute Lymphocytes Absolute Monocytes Absolute Eosinophils Absolute Basophils PT INR Sodium Potassium Chloride Carbon Dioxide Anion Gap BUN Creatinine Est GFR ( Amer) Est GFR (Non-Af Amer) Glucose Calcium Magnesium 2.0 Total Bilirubin Direct Bilirubin Neonat Total Bilirubin Neonat Direct Bilirubin Neonat Indirect Bili AST ALT Alkaline Phosphatase Creatine Kinase CK-MB (CK-2) 2.90 Troponin I 0.047 Total Protein Albumin Digoxin 0.77 L - Diagnostic Test Radiology reviewed: Reports reviewed Discharge - Discharge Clinical Impression: Fall Qualifiers: Encounter type: initial encounter Qualified Code(s): W19.XXXA - Unspecified fall, initial encounter Chest pain Qualifiers: Chest pain type: unspecified Qualified Code(s): R07.9 - Chest pain, unspecified Condition: Stable Disposition: ADMITTED OBSERVATION Admitting Provider: Hospitalist Unit Admitted: Telemetry
[2017-10-22] MEDS ORDERED: NITROGLYCERIN 2% OINTMENT 1 GM PACKET TP ONE (21:22)
[2017-10-22 21:32] LABS: ABSOLUTE EOSINOPHILS # (AUTO) 0.1 10^3/uL (0.0-0.6); ABSOLUTE LYMPHOCYTES (AUTO) 1.6 10^3/uL (0.5-4.7); ABSOLUTE MONOCYTES (AUTO) 1.1 10^3/uL (0.1-1.4); ABSOLUTE NEUT (AUTO) 6.8 10^3/uL (1.7-8.2); BASOPHILS % (AUTO) 0.3 % (0-2); HEMATOCRIT 35.9 % (37.9-51.0); HEMOGLOBIN 11.8 g/dL (13.5-17.0); MEAN CORPUSCULAR HEMOGLOBIN 27.9 pg (27.0-33.4); MEAN CORPUSCULAR HGB CONC 32.9 g/dL (32.0-36.0); MEAN CORPUSCULAR VOLUME 85 fl (80-97); MONOCYTES % (AUTO) 11.3 % (3-13); PLATELET COUNT 221 10^3/uL (150-450); RED BLOOD COUNT 4.23 10^6/uL (4.35-5.55); RED CELL DISTRIBUTION WIDTH 14.8 % (11.5-14.0); SEGMENTED NEUTROPHILS % (AUTO) 70.4 % (42-78); TOTAL CELLS COUNTED % (AUTO) 100 %; WHITE BLOOD COUNT 9.6 10^3/uL (4.0-10.5)
[2017-10-22 21:43] LABS: ALANINE AMINOTRANSFERASE 32 U/L (21-72); ALKALINE PHOSPHATASE 99 U/L (38-126); ANION GAP 10 (5-19); ASPARTATE AMINO TRANSFERASE 22 U/L (17-59); BILIRUBIN,DIRECT 0.3 mg/dL (0.0-0.4); BILIRUBIN,TOTAL 0.6 mg/dL (0.2-1.3); BLOOD UREA NITROGEN 19 mg/dL (7-20); CALCIUM 9.4 mg/dL (8.4-10.2); CARBON DIOXIDE 31 mmol/L (22-30); CHLORIDE 101 mmol/L (98-107); CREATINE KINASE 157 U/L (55-170); GLUCOSE 95 mg/dL (75-110); POTASSIUM 3.6 mmol/L (3.6-5.0); SODIUM 141.8 mmol/L (137-145); TOTAL PROTEIN 6.8 g/dL (6.3-8.2)
[2017-10-22 21:50] LABS: INTERNATIONAL RATION (INR) 1.09; PROTHROMBIN TIME 14.9 SEC (11.4-15.4)
[2017-10-22 21:55] LABS: CREATINE KINASE MB 2.9 ng/mL (<4.55)
[2017-10-22 21:59] LABS: TROPONIN I 0.047 ng/mL
--- NOTE | 2017-10-22 21:59 | RADIOLOGY REPORT (SQ) ---
EXAM DESCRIPTION: CHEST PA/LAT COMPLETED DATE/TIME: 10/22/2017 9:45 pm REASON FOR STUDY: cp, cough COMPARISON: 10/02/2016 EXAM PARAMETERS: NUMBER OF VIEWS: two views TECHNIQUE: Digital Frontal and Lateral radiographic views of the chest acquired. RADIATION DOSE: NA LIMITATIONS: none FINDINGS: LUNGS AND PLEURA: Underlying emphysema. Scarring left lung base. No new airspace opaciti es. No pleural effusion pneumothorax. MEDIASTINUM AND HILAR STRUCTURES: No masses or contour abnormalities. HEART AND VASCULAR STRUCTURES: Stable cardiomegaly. No evidence for failure. BONES: No acute findings. HARDWARE: None in the chest. OTHER: No other significant finding. IMPRESSION: NO ACUTE CARDIOPULMONARY PROCESS. CHRONIC CHANGES ABOVE. TECHNICAL DOCUMENTATION: JOB ID: [id number] [employer]- All Rights Reserved Reading location - IP/workstation name: [email or web address]
--- NOTE | 2017-10-22 22:00 | RADIOLOGY REPORT (SQ) ---
EXAM DESCRIPTION: CT HEAD WITHOUT COMPLETED DATE/TIME: 10/22/2017 9:38 pm REASON FOR STUDY: FALL COMPARISON: None. TECHNIQUE: Axial images acquired through the brain without intravenous contrast. Images reviewed wi th bone, brain and subdural windows. Images stored on PACS. All CT scanners at this facility use dose modulation, iterative reconstruction, and/or weight based d osing when appropriate to reduce radiation dose to as low as reasonably achievable (ALARA). [facility]: Dose Right [facility]: CareDose [facility]: Dose Right [facility]: Teradose 4D [facility]: Smart [place] [employer] RADIATION DOSE: CT Rad equipment meets quality standard of care and radiation dose reduction techniq ues were employed. CTDIvol: 64.6 mGy. DLP: 1163 mGy-cm.mGy. LIMITATIONS: None. FINDINGS: VENTRICLES: Prominent. CEREBRUM: No masses. No hemorrhage. No midline shift. Areas of low density in the white matter mos t likely due to chronic micro-vascular ischemic change. Chronic infarction left frontal lobe. No ev idence for acute infarction. CEREBELLUM: No masses. No hemorrhage. No alteration of density. No evidence for acute infarction. EXTRAAXIAL SPACES: Age-related involutional change. No fluid collections. No masses. ORBITS AND GLOBE: No intra- or extraconal masses. Normal contour of globe without masses. CALVARIUM: No fracture. PARANASAL SINUSES: No fluid or mucosal thickening. SOFT TISSUES: No mass or hematoma. OTHER: No other significant finding. IMPRESSION: CHRONIC CHANGES OF ATROPHY AND MICROVASCULAR ISCHEMIA. NO ACUTE PROCESS. EVIDENCE OF ACUTE STROKE: NO. TECHNICAL DOCUMENTATION: JOB ID: [id number] Quality ID # [id number]: Final reports with documentation of one or more dose reduction techniques (e.g., Au tomated exposure control, adjustment of the mA and/or kV according to patient size, use of iterative reconstruction technique) 2010 [employer]- All Rights Reserved Reading location - IP/workstation name: [email or web address]
--- NOTE | 2017-10-22 22:00 | RADIOLOGY REPORT (SQ) ---
EXAM DESCRIPTION: ELBOW LEFT OVER 2 VIEWS COMPLETED DATE/TIME: 10/22/2017 9:46 pm REASON FOR STUDY: fall, elbow pain COMPARISON: None. NUMBER OF VIEWS: Four views. TECHNIQUE: AP, lateral, and both oblique radiographic images acquired of the left elbow. LIMITATIONS: None. FINDINGS: MINERALIZATION: Normal. BONES: No acute fracture or dislocation. No worrisome bone lesions. JOINT: No effusion. SOFT TISSUES: No soft tissue swelling. No foreign body. OTHER: No other significant finding. IMPRESSION: NO RADIOGRAPHIC EVIDENCE OF ACUTE INJURY. TECHNICAL DOCUMENTATION: JOB ID: [id number] [employer]- All Rights Reserved Reading location - IP/workstation name: [email or web address]
[2017-10-22 22:29] LABS: DIGOXIN 0.77 ng/mL (0.8-2.0)
[2017-10-22] MEDS ORDERED: ACETAMINOPHEN 325 MG TABLET PO PRN (23:56)
[2017-10-22] MEDS ORDERED: ONDANSETRON HCL INJ/PF 4 MG/2 ML SDV IV PRN (23:56)
[2017-10-22] MEDS ORDERED: IPRATROPIUM/ALBUTEROL 0.5-2.5 MG/3 ML AMPUL NEB PRN (23:56)
[2017-10-22] MEDS ORDERED: MAG HYDROX/AL HYDROX/SIMETH SUSP 30 ML UDCUP PO PRN (23:56)
[2017-10-23] MEDS ORDERED: SERTRALINE HCL 50 MG TABLET PO ONE (00:15)
[2017-10-23 00:46] LABS: APPEARANCE,URINE CLEAR; BILIRUBIN,URINE NEGATIVE (NEGATIVE); COLOR,URINE YELLOW; GLUCOSE, URINE NEGATIVE (NEGATIVE); KETONES,URINE NEGATIVE (NEGATIVE); LEUKOCYTE ESTERASE,URINE NEGATIVE (NEGATIVE); NITRITE,URINE NEGATIVE (NEGATIVE); PROTEIN,URINE NEGATIVE (NEGATIVE); URINE SPECIFIC GRAVITY 1.019; UROBILINOGEN,URINE NEGATIVE mg/dL (<2.0)
[2017-10-23] MEDS ORDERED: MONTELUKAST SODIUM 10 MG TABLET PO ONE (01:00)
[2017-10-23 03:13] LABS: ABSOLUTE EOSINOPHILS # (AUTO) 0.1 10^3/uL (0.0-0.6); ABSOLUTE LYMPHOCYTES (AUTO) 1.5 10^3/uL (0.5-4.7); ABSOLUTE MONOCYTES (AUTO) 0.8 10^3/uL (0.1-1.4); ABSOLUTE NEUT (AUTO) 6.1 10^3/uL (1.7-8.2); BASOPHILS % (AUTO) 0.3 % (0-2); EOSINOPHILS % (AUTO) 1.6 % (0-6); HEMATOCRIT 35.5 % (37.9-51.0); HEMOGLOBIN 11.7 g/dL (13.5-17.0); LYMPHOCYTES % (AUTO) 17.1 % (13-45); MEAN CORPUSCULAR HEMOGLOBIN 27.6 pg (27.0-33.4); MEAN CORPUSCULAR HGB CONC 33.1 g/dL (32.0-36.0); MEAN CORPUSCULAR VOLUME 84 fl (80-97); MONOCYTES % (AUTO) 9.9 % (3-13); PLATELET COUNT 192 10^3/uL (150-450); RED BLOOD COUNT 4.24 10^6/uL (4.35-5.55); RED CELL DISTRIBUTION WIDTH 14.8 % (11.5-14.0); SEGMENTED NEUTROPHILS % (AUTO) 71.1 % (42-78); TOTAL CELLS COUNTED % (AUTO) 100 %; WHITE BLOOD COUNT 8.5 10^3/uL (4.0-10.5)
[2017-10-23 03:35] LABS: ANION GAP 11 (5-19); BLOOD UREA NITROGEN 18 mg/dL (7-20); CALCIUM 9.2 mg/dL (8.4-10.2); CARBON DIOXIDE 27 mmol/L (22-30); CHLORIDE 104 mmol/L (98-107); CHOLESTEROL 163.07 mg/dL (0-200); GLUCOSE 132 mg/dL (75-110); POTASSIUM 3.6 mmol/L (3.6-5.0); SODIUM 142.1 mmol/L (137-145); TRIGLYCERIDES 236 mg/dL (<150)
[2017-10-23 03:48] LABS: DIRECT LDL 91 mg/dL (<100)
[2017-10-23 03:49] LABS: CREATINE KINASE MB 2.43 ng/mL (<4.55); VLDL CHOLESTEROL 47.2 mg/dL (10-31)
[2017-10-23 03:52] LABS: TROPONIN I 0.047 ng/mL
[2017-10-23] MEDS: HEPARIN SOD (PORCINE) 5,000 UNIT/ML 1 ML SYRINGE SUBCUT SCH ×3 (05:52→22:09)
--- NOTE | 2017-10-23 07:42 | PDOC H&P ---
History of Present Illness Admission Date/PCP: 10/23/17 00:03 MARCELO GIORDANO MD Patient complains of: Chest pain History of Present Illness: HAWA YANG is a 77 year old male with a past medical history of COPD, chronic bronchitis, hypertension, type 2 diabetes, and aspiration pneumonia. Patient presents with left-sided chest wall pain 6 hours prompting a call to EMS receiving sublingual nitroglycerin resolving his pain. He describes his pain as sharp on the left lateral wall of his chest where pain was reproducible by rubbing the area and deep breathing. He admits palpitations, denies diaphoresis, nausea or vomiting. In the emergency room he has an unremarkable workup, he is pain-free. Past Medical History Cardiac Medical History: Reports: Atrial Fibrillation, Congestive Heart Failure , Hypertension Denies: Myocardial Infarction Pulmonary Medical History: Reports: Asthma, Chronic Obstructive Pulmonary Disease (COPD) Neurological Medical History: Denies: Seizures Endocrine Medical History: Reports: Diabetes Mellitus Type 2 GI Medical History: Denies: Hepatitis, Hiatal Hernia Hematology: Reports: Anemia - NOW ON IRON PILLS Denies: Sickle Cell Disease Past Surgical History Past Surgical History: Reports: Herniorrhaphy Denies: Pacemaker Social History Information Source: Patient, [facility] Records Lives with: Family Smoking Status: Former Smoker Frequency of Alcohol Use: None Hx Recreational Drug Use: No Drugs: None Hx Prescription Drug Abuse: No - Advance Directive Resuscitation Status: Full Code Family History Family History: COPD Parental Family History Reviewed: Yes Children Family History Reviewed: Yes Sibling(s) Family History Reviewed.: Yes Medication/Allergy Home Medications: Acetylcysteine [Nac] 500 mg PO BID 01/29/16 Albuterol Sulfate [Proair HFA] 1 - 2 puff IH Q4 PRN 01/29/16 Aspirin [Aspirin 81 mg Chewable Tablet] 81 mg PO DAILY 01/29/16 Budesonide/Formoterol Fumarate [Symbicort HFA 160-4.5 mcg Inhaler 6 gm] 2 puff IH Q12 01/29/16 Digoxin [Digitek] 125 mcg PO DAILY 01/29/16 Furosemide [Lasix 40 mg Tablet] 40 mg PO DAILY 01/29/16 Glipizide [Glipizide Xl] 10 mg PO DAILY 01/29/16 Iron Ps Complex/B12/Folic Acid [Ferrex 150 Forte Capsule] 1 each PO DAILY Levalbuterol HCl 1.25 mg IH Q6H 01/29/16 Lisinopril 5 mg PO DAILY 01/29/16 Metoprolol Succinate 25 mg PO DAILY 01/29/16 Montelukast Sodium [Singulair 10 mg Tablet] 10 mg PO QHS 01/29/16 Omeprazole 40 mg PO BID 01/29/16 Oxycodone HCl 5 mg PO Q4H PRN 01/29/16 Roflumilast [Daliresp 500 mcg Tablet] 500 mcg PO DAILY 01/29/16 Sertraline HCl 100 mg PO QHS 01/29/16 Tiotropium [place] [Spiriva Handihaler 18 mcg/dose (30 Dose)] 2 cap IH DAILY Iron Ps Complex/B12/Folic Acid [Ferrex 150 Forte Capsule] 1 each PO QHS Cefuroxime Axetil [Ceftin 500 mg Tablet] 1 tab PO BID #20 tablet 05/20/17 Ciprofloxacin HCl [Cipro 500 mg Tablet] 500 mg PO Q12 #20 tablet 05/20/17 Prednisone [Deltasone 20 mg Tablet] 10 mg PO DAILY #39 tablet 05/20/17 Allergies/Adverse Reactions: No Known Allergies Allergy (Verified 10/22/17 21:00) Review of Systems Constitutional: ABSENT: chills, fever(s), headache(s), weight gain, weight loss Eyes: ABSENT: visual disturbances Ears: ABSENT: hearing changes Cardiovascular: PRESENT: as per HPI, chest pain, palpitations. ABSENT: dyspnea on exertion, edema, orthropnea Respiratory: PRESENT: as per HPI, cough, dyspnea, sputum. ABSENT: hemoptysis Gastrointestinal: ABSENT: abdominal pain, constipation, diarrhea, hematemesis, hematochezia, nausea, vomiting Genitourinary: ABSENT: dysuria, hematuria Musculoskeletal: ABSENT: joint swelling Integumentary: ABSENT: rash, wounds Neurological: ABSENT: abnormal gait, abnormal speech, confusion, dizziness, focal weakness, syncope Psychiatric: ABSENT: anxiety, depression, homidical ideation, suicidal ideation Endocrine: ABSENT: cold intolerance, heat intolerance, polydipsia, polyuria Hematologic/Lymphatic: ABSENT: easy bleeding, easy bruising Physical Exam Vital Signs: Temp Pulse Resp BP Pulse Ox 98.3 F 12 140/72 H 99 10/23/17 05:00 10/23/17 07:00 10/23/17 07:01 10/23/17 07:01 General appearance: PRESENT: no acute distress, cooperative, thin, other - Chronically ill-appearing, temporal wasting, poorly fitting dentures Head exam: PRESENT: atraumatic, normocephalic Eye exam: PRESENT: conjunctiva pink, EOMI, PERRLA. ABSENT: scleral icterus Ear exam: PRESENT: normal external ear exam Mouth exam: PRESENT: other - Poorly fitting dentures protruding Neck exam: ABSENT: carotid bruit, JVD, lymphadenopathy, thyromegaly Respiratory exam: PRESENT: clear to auscultation laure, prolonged expiratory phas. ABSENT: crackles, decreased breath sounds, rales, retraction, rhonchi, wheezes Cardiovascular exam: PRESENT: RRR. ABSENT: diastolic murmur, rubs, systolic murmur Pulses: PRESENT: normal dorsalis pedis pul Vascular exam: PRESENT: normal capillary refill GI/Abdominal exam: PRESENT: normal bowel sounds, soft. ABSENT: distended, guarding, mass, organolmegaly, rebound, tenderness Rectal exam: PRESENT: deferred Extremities exam: PRESENT: full ROM. ABSENT: calf tenderness, clubbing, pedal edema Neurological exam: PRESENT: alert, awake, oriented to person, oriented to place , oriented to time, oriented to situation, CN II-XII grossly intact. ABSENT: motor sensory deficit Psychiatric exam: PRESENT: appropriate affect, normal mood. ABSENT: homicidal ideation, suicidal ideation Skin exam: PRESENT: dry, intact, warm. ABSENT: cyanosis, rash Results Laboratory Results: 10/23/17 03:03 10/23/17 03:03 10/23/17 10/23/17 10/23/17 00:15 03:03 03:03 WBC 8.5 RBC 4.24 L Hgb 11.7 L Hct 35.5 L MCV 84 MCH 27.6 MCHC 33.1 RDW 14.8 H Plt Count 192 Seg Neutrophils % 71.1 Lymphocytes % 17.1 Monocytes % 9.9 Eosinophils % 1.6 Basophils % 0.3 Absolute Neutrophils 6.1 Absolute Lymphocytes 1.5 Absolute Monocytes 0.8 Absolute Eosinophils 0.1 Absolute Basophils 0.0 Sodium 142.1 Potassium 3.6 Chloride 104 Carbon Dioxide 27 Anion Gap 11 BUN 18 Creatinine 0.99 Est GFR ( Amer) > 60 Est GFR (Non-Af Amer) > 60 Glucose 132 H Calcium 9.2 Triglycerides 236 H Cholesterol 163.07 LDL Cholesterol Direct 91 VLDL Cholesterol 47.2 H HDL Cholesterol 40 Urine Color YELLOW Urine Appearance CLEAR Urine pH 5.0 Ur Specific [place] 1.019 Urine Protein NEGATIVE Urine Glucose (UA) NEGATIVE Urine Ketones NEGATIVE Urine Blood NEGATIVE Urine Nitrite NEGATIVE Ur Leukocyte Esterase NEGATIVE Urine WBC (Auto) 1 Urine RBC (Auto) 2 10/23/17 10/23/17 03:03 03:03 Creatine Kinase 139 CK-MB (CK-2) 2.43 Troponin I 0.047 Impressions: Chest X-Ray 10/22/17 21:16 IMPRESSION: NO ACUTE CARDIOPULMONARY PROCESS. CHRONIC CHANGES ABOVE. Head CT 10/22/17 21:16 IMPRESSION: CHRONIC CHANGES OF ATROPHY AND MICROVASCULAR ISCHEMIA. NO ACUTE PROCESS. EVIDENCE OF ACUTE STROKE: NO. Elbow X-Ray 10/22/17 21:17 IMPRESSION: NO RADIOGRAPHIC EVIDENCE OF ACUTE INJURY. Assessment & Plan - Diagnosis (1) Chest pain Qualifiers: Chest pain type: unspecified Qualified Code(s): R07.9 - Chest pain, unspecified Is this a current diagnosis for this admission?: Yes Plan: Atypical chest pain though the patient's pain is atypical there are multiple risk factors for coronary artery disease and subsequently will observe and evaluation of acute coronary syndrome versus coronary artery disease with anginal equivalents. Cardiac monitoring blood pressure Q6 hours ,TSH, lipid profile, serial cardiac enzymes and cardiac stress test (2) Fall Qualifiers: Encounter type: initial encounter Qualified Code(s): W19.XXXA - Unspecified fall, initial encounter Is this a current diagnosis for this admission?: Yes Plan: Orthostatic blood pressure and physical therapy evaluation. (3) COPD (chronic obstructive pulmonary disease) Qualifiers: Is this a current diagnosis for this admission?: Yes Plan: Supplemental oxygen, albuterol and Atrovent, chlorpheniramine and Flonase - Time Time Spent: 30 to 50 Minutes
--- NOTE | 2017-10-23 09:47 | EKG REPORT ---
SEVERITY:- ABNORMAL ECG - SINUS RHYTHM MULTIPLE ATRIAL PREMATURE COMPLEXES NONSPECIFIC IVCD WITH LAD : Confirmed by: Quang Yan MD 23-Oct-2017 09:46:29
[2017-10-23] MEDS: ASPIRIN 81 MG TABLET, CHEWABLE PO SCH (09:48)
[2017-10-23] MEDS: LISINOPRIL 10 MG TABLET PO SCH (09:48)
[2017-10-23] MEDS: PREDNISONE 20 MG TABLET PO SCH (09:48)
--- NOTE | 2017-10-23 09:48 | EKG REPORT ---
SEVERITY:- ABNORMAL ECG - SINUS RHYTHM NONSPECIFIC IVCD WITH LAD NONSPECIFIC ANTEROLATERAL ST-T CHANGES : Confirmed by: Quang Yan MD 23-Oct-2017 09:47:23
[2017-10-23] MEDS: FUROSEMIDE 40 MG TABLET PO SCH (09:49)
[2017-10-23] MEDS: LANSOPRAZOLE 30 MG TAB.RAP.DR PO SCH ×2 (09:50→17:39)
[2017-10-23] MEDS: DOCUSATE SODIUM 100 MG CAPSULE PO SCH ×2 (09:50→17:39)
[2017-10-23] MEDS: METOPROLOL SUCCINATE 25 MG TAB.SR.24H PO SCH (09:50)
[2017-10-23] MEDS ORDERED: ACETYLCYSTEINE 500 MG PO SCH (10:00)
[2017-10-23 12:06] LABS: CREATINE KINASE MB 2.52 ng/mL (<4.55); TROPONIN I 0.042 ng/mL
--- NOTE | 2017-10-23 12:25 | PDOC CONSULTATION ---
Consultation Consult Date: 10/23/17 Consult reason:: chest pain History of Present Illness Admission Date/PCP: 10/23/17 00:03 MARCELO GIORDANO MD History of Present Illness: Here is a very pleasant 77-year-old male with past medical history of COPD, diabetes, hypertension, arthritis, questionable history of atrial fibrillation who was admitted with history of a fall at home and with complaints of chest pain. Patient is not a good historian but is able to tell me that he lives with his son and [id number]. He does tell me that he has had falls in the past. He claims that he had an accidental fall last night and landed on left side of his chest and and has bruises on both arms and since then has had pain on the left side of chest which is tender to touch. He denies any history of loss of consciousness or any dizziness before he fell. There is mention of atrial fibrillation and is medical record but he is not able to elaborate much on that. He denies any history of getting heart surgery or stents. He can recall being on blood thinners but cannot tell me why it was stopped although he does tell me that he has had blood in his stools before. At this point of time he denies any shortness of breath or dizziness and gets chest pain when he takes a deep breath or when he presses on his chest. He denies history of active cigarette smoking but has been a smoker in the past. He cannot recall any family history of coronary artery disease. There is no family present at bedside to elaborate on his past medical history. He is on chronic prednisone therapy but he cannot tell me if he has rheumatoid arthritis. Past Medical History Cardiac Medical History: Reports: Atrial Fibrillation, Congestive Heart Failure , Hypertension Denies: Myocardial Infarction Pulmonary Medical History: Reports: Asthma, Chronic Obstructive Pulmonary Disease (COPD) Neurological Medical History: Denies: Seizures Endocrine Medical History: Reports: Diabetes Mellitus Type 2 GI Medical History: Denies: Hepatitis, Hiatal Hernia Musculoskeltal Medical History: Reports: Arthritis Hematology: Reports: Anemia - NOW ON IRON PILLS Denies: Sickle Cell Disease Past Surgical History Past Surgical History: Reports: Herniorrhaphy Denies: Pacemaker Social History Lives with: Family Smoking Status: Former Smoker Frequency of Alcohol Use: None Hx Recreational Drug Use: No Drugs: None Hx Prescription Drug Abuse: No - Advance Directive Resuscitation Status: Full Code Family History Family History: COPD Parental Family History Reviewed: Yes - Patient cannot recollect history. Children Family History Reviewed: Yes Sibling(s) Family History Reviewed.: Yes Medication/Allergy Home Medications: Apixaban [Eliquis 5 mg Tablet] 5 mg PO Q12 10/23/17 Digoxin [Lanoxin 0.125 mg Tablet] 0.125 mg PO DAILY 10/23/17 Fluticasone/Salmeterol [Advair 500-50 Diskus 14 Dose/Diskus] 1 puff IH Q12 10/23 Furosemide [Lasix 40 mg Tablet] 60 mg PO DAILY 10/23/17 Glipizide [Glipizide Xl] 2.5 mg PO DAILY 10/23/17 Iron Polysaccharide Complex [Ferrex 150] 150 mg PO DAILY 10/23/17 Levalbuterol HCl [Xopenex Neb 1.25 mg/3 ml Ampul] 1 vial NEB Q8HP PRN 10/23/17 Lisinopril [Prinivil 5 mg Tablet] 5 mg PO DAILY 10/23/17 Metoprolol Succinate [Toprol Xl 50 mg Tab.sr] 50 mg PO DAILY 10/23/17 Montelukast Sodium [Singulair 10 mg Tablet] 10 mg PO DAILY 10/23/17 Omeprazole 20 mg PO DAILY 10/23/17 Roflumilast [Daliresp 500 mcg Tablet] 500 mcg PO DAILY 10/23/17 Sertraline HCl [Zoloft] 100 mg PO QHS 10/23/17 Tiotropium [place] [Spiriva Handihaler 18 mcg/dose (30 Dose)] 1 cap PO DAILY Allergies/Adverse Reactions: No Known Allergies Allergy (Verified 10/22/17 21:00) Review of Systems ROS unobtainable: Other - Review of systems limited due to patient being a poor historian. Musculoskeletal: PRESENT: other - Pain in both arms and chest wall on the left side. Neurological: PRESENT: frequent falls Psychiatric: PRESENT: other - Probable memory impairment. Physical Exam Vital Signs: Temp Pulse Resp BP Pulse Ox 98.3 F 59 L 12 142/75 H 98 10/23/17 05:00 10/23/17 08:55 10/23/17 09:01 10/23/17 09:01 10/23/17 10:43 General appearance: PRESENT: no acute distress Head exam: PRESENT: normocephalic Respiratory exam: PRESENT: chest wall tenderness Cardiovascular exam: PRESENT: systolic murmur Pulses: PRESENT: normal carotid pulses Musculoskeletal exam: PRESENT: other - bruising with laceration both arms Neurological exam: PRESENT: alert, awake Results Laboratory Results: 10/23/17 03:03 10/23/17 03:03 10/23/17 10/23/17 10/23/17 00:15 03:03 03:03 WBC 8.5 RBC 4.24 L Hgb 11.7 L Hct 35.5 L MCV 84 MCH 27.6 MCHC 33.1 RDW 14.8 H Plt Count 192 Seg Neutrophils % 71.1 Lymphocytes % 17.1 Monocytes % 9.9 Eosinophils % 1.6 Basophils % 0.3 Absolute Neutrophils 6.1 Absolute Lymphocytes 1.5 Absolute Monocytes 0.8 Absolute Eosinophils 0.1 Absolute Basophils 0.0 Sodium 142.1 Potassium 3.6 Chloride 104 Carbon Dioxide 27 Anion Gap 11 BUN 18 Creatinine 0.99 Est GFR ( Amer) > 60 Est GFR (Non-Af Amer) > 60 Glucose 132 H Calcium 9.2 Triglycerides 236 H Cholesterol 163.07 LDL Cholesterol Direct 91 VLDL Cholesterol 47.2 H HDL Cholesterol 40 Urine Color YELLOW Urine Appearance CLEAR Urine pH 5.0 Ur Specific [place] 1.019 Urine Protein NEGATIVE Urine Glucose (UA) NEGATIVE Urine Ketones NEGATIVE Urine Blood NEGATIVE Urine Nitrite NEGATIVE Ur Leukocyte Esterase NEGATIVE Urine WBC (Auto) 1 Urine RBC (Auto) 2 10/23/17 10/23/17 03:03 03:03 Creatine Kinase 139 CK-MB (CK-2) 2.43 Troponin I 0.047 EKG Comments: Sinus rhythm with LBBB Impressions: Chest X-Ray 10/22/17 21:16 IMPRESSION: NO ACUTE CARDIOPULMONARY PROCESS. CHRONIC CHANGES ABOVE. Head CT 10/22/17 21:16 IMPRESSION: CHRONIC CHANGES OF ATROPHY AND MICROVASCULAR ISCHEMIA. NO ACUTE PROCESS. EVIDENCE OF ACUTE STROKE: NO. Elbow X-Ray 10/22/17 21:17 IMPRESSION: NO RADIOGRAPHIC EVIDENCE OF ACUTE INJURY. Assessment & Plan - Diagnosis (1) Chest pain Qualifiers: Chest pain type: other chest pain Qualified Code(s): R07.89 - Other chest pain; R07.8 - Other chest pain Is this a current diagnosis for this admission?: Yes (3) COPD (chronic obstructive pulmonary disease) Qualifiers: Is this a current diagnosis for this admission?: Yes - Notes Notes: Recommendations Patient with previously unconfirmed history of atrial fibrillation currently in sinus rhythm admitted with fall and clearly reproducible chest wall pain with initial cardiac biomarkers negative for acute coronary syndrome and EKG showing sinus rhythm with left bundle branch block pattern (no previous EKG to compare with) Patient does have risk factors for obstructive coronary artery disease which may include his age and history of diabetes and hypertension but not expressing any anginal type of chest pain. A cardiac stress test has been ordered for the patient by the primary team which is not unreasonable considering his risk factors but can be done as an outpatient if serial enzymes are negative for acute coronary syndrome. We would recommend a transthoracic echocardiogram in view of his systolic murmur. Also would recommend occupational and physical therapy evaluation for patient and to check for gait stability. It would be useful to get his old records to know about his previous cardiac history and workup and we would recommend that. His chads 2 VASC score is at least 4 in the absence of knowledge of EF and vascular disease but he just had a fall and does have a history of previous falls and at this point appears high risk for fall and bleeding. Would recommend gait assessment for stability and discussion with family before considering anticoagulation. For now we agree with continuation of aspirin, ALEJANDRO inhibitor and beta-bear therapy and will recommend fall precautions for this patient. Statin therapy may be considered for risk factor reduction. Will also recommend telemetry monitoring for any symptomatic bradycardia. - Time Time Spent: 30 to 50 Minutes
[2017-10-23 16:15] LABS: CREATINE KINASE MB 2.34 ng/mL (<4.55)
[2017-10-23 16:19] LABS: TROPONIN I 0.035 ng/mL
--- NOTE | 2017-10-23 17:28 | Progress Note ---
Provider Note Provider Note: The patient was admitted earlier today with atypical chest pain. The history and physical was reviewed. On physical exam the patient's chest pain remains reproducible. Secondary to the lack of signs and symptoms of acute cardiac chest pain I did consult cardiology for further risk stratification and assessment. Cardiology is recommending evaluation with physical therapy and Occupational Therapy to test the patient's gait. This is to determine if the patient is an appropriate candidate for anticoagulation. We are also ordering an echocardiogram and a stress test.
[2017-10-23] MEDS: DIGOXIN 0.125 MG TABLET PO SCH (17:33)
[2017-10-23] MEDS: BUDESONIDE/FORMOTEROL 160-4.5 MCG 60 PUFF/6 GM MDI IH SCH ×2 (17:33→22:09)
[2017-10-23] MEDS: TIOTROPIUM BROMIDE DPI 5 CAP/KIT (18 MCG/CAP) IH SCH (17:33)
[2017-10-23] MEDS: ROFLUMILAST 500 MCG TABLET PO SCH (17:33)
[2017-10-23] MEDS: GLIPIZIDE XL 5 MG TAB.ER.24 PO SCH (17:33)
[2017-10-23] MEDS: SERTRALINE HCL 50 MG TABLET PO SCH (22:09)
[2017-10-23] MEDS: MONTELUKAST SODIUM 10 MG TABLET PO SCH (22:09)
[2017-10-24] MEDS: HEPARIN SOD (PORCINE) 5,000 UNIT/ML 1 ML SYRINGE SUBCUT SCH ×3 (05:11→22:04)
[2017-10-24] MEDS: FUROSEMIDE 40 MG TABLET PO SCH (10:56)
[2017-10-24] MEDS: GLIPIZIDE XL 5 MG TAB.ER.24 PO SCH (10:56)
[2017-10-24] MEDS: PREDNISONE 20 MG TABLET PO SCH (10:56)
[2017-10-24] MEDS: ASPIRIN 81 MG TABLET, CHEWABLE PO SCH (10:56)
[2017-10-24] MEDS: ROFLUMILAST 500 MCG TABLET PO SCH (10:57)
[2017-10-24] MEDS: BUDESONIDE/FORMOTEROL 160-4.5 MCG 60 PUFF/6 GM MDI IH SCH ×2 (10:57→22:04)
[2017-10-24] MEDS: TIOTROPIUM BROMIDE DPI 5 CAP/KIT (18 MCG/CAP) IH SCH (10:57)
[2017-10-24] MEDS: LANSOPRAZOLE 30 MG TAB.RAP.DR PO SCH ×2 (10:57→17:55)
[2017-10-24] MEDS: LISINOPRIL 10 MG TABLET PO SCH (10:57)
[2017-10-24] MEDS: DOCUSATE SODIUM 100 MG CAPSULE PO SCH ×2 (10:57→17:54)
[2017-10-24] MEDS: DIGOXIN 0.125 MG TABLET PO SCH (10:58)
[2017-10-24] MEDS: METOPROLOL SUCCINATE 25 MG TAB.SR.24H PO SCH (10:58)
[2017-10-24] MEDS ORDERED: DEXTROSE 50%-WATER 25 GM/50 ML DISP.SYRIN IV PRN ×2 (17:08)
[2017-10-24] MEDS ORDERED: GLUCAGON,HUMAN RECOMB 1 MG INJ IM PRN (17:08)
[2017-10-24] MEDS ORDERED: DEXTROSE 40% GEL 15 GM TUBE PO PRN ×2 (17:08)
--- NOTE | 2017-10-24 17:08 | PDOC PROGRESS REPORT ---
Subjective Progress Note for:: 10/24/17 Subjective:: The patient is a 77-year-old male who has a significant risk factors for coronary artery disease. The patient presents with atypical and reproducible chest pain. He was seen by cardiology yesterday. At this point time we are planning for further testing with an echocardiogram, and stress test. In light of the fact that we need to ascertain his risk to benefit ratio for using anticoagulation a PT and OT consult have been ordered to assess the patient for fall risk. Reason For Visit: CHEST PAIN, COPD, FALLS Physical Exam Vital Signs: Temp Pulse Resp BP Pulse Ox 98.6 F 89 18 120/74 97 10/24/17 07:43 10/24/17 14:00 10/24/17 07:43 10/24/17 07:43 10/24/17 09:56 Intake & Output 10/23/17 10/24/17 10/25/17 06:59 06:59 06:59 Intake Total 746 Output Total 675 Balance 71 Weight 80.7 kg Additional comments: The patient was resting comfortably this morning. He denied any pain. The patient is answering questions appropriately. His lung harris do demonstrate rails in the lower lung harris posteriorly today. His cardiac exam demonstrates a regular rate and rhythm without murmurs, gallops or rubs. The abdomen is soft and flat. Bowel sounds are noted in the lower quadrants. He does not have guarding or rebound noted. He does not have any lower extremity edema. In the visible areas, no lesions or rashes are present. Results Laboratory Results: 10/23/17 03:03 10/23/17 03:03 10/23/17 10/23/17 10/23/17 03:03 03:03 10:55 Creatine Kinase 139 CK-MB (CK-2) 2.43 2.52 Troponin I 0.047 0.042 10/23/17 10/23/17 10/23/17 10:55 15:27 15:27 Creatine Kinase 116 117 CK-MB (CK-2) 2.34 Troponin I 0.035 Impressions: Chest X-Ray 10/22/17 21:16 IMPRESSION: NO ACUTE CARDIOPULMONARY PROCESS. CHRONIC CHANGES ABOVE. Head CT 10/22/17 21:16 IMPRESSION: CHRONIC CHANGES OF ATROPHY AND MICROVASCULAR ISCHEMIA. NO ACUTE PROCESS. EVIDENCE OF ACUTE STROKE: NO. Elbow X-Ray 10/22/17 21:17 IMPRESSION: NO RADIOGRAPHIC EVIDENCE OF ACUTE INJURY. Assessment & Plan - Diagnosis (1) Chest pain Qualifiers: Chest pain type: other chest pain Qualified Code(s): R07.89 - Other chest pain; R07.8 - Other chest pain Is this a current diagnosis for this admission?: Yes Plan: We are going to proceed with recommendations per cardiology. Patient will have echocardiogram testing followed by stress test. In the interim, we will continue medical management for potential underlying coronary artery disease with aspirin, beta-bear and ALEJANDRO inhibitor. Patient is not currently on a statin. (2) Atrial fibrillation Is this a current diagnosis for this admission?: Yes Plan: This Is by history. He is currently in sinus rhythm. PT/OT consult have been ordered for assessment of risk for anticoagulation. (3) Fall Qualifiers: Encounter type: initial encounter Qualified Code(s): W19.XXXA - Unspecified fall, initial encounter Is this a current diagnosis for this admission?: Yes Plan: Continue with fall precautions (4) COPD (chronic obstructive pulmonary disease) Qualifiers: Is this a current diagnosis for this admission?: Yes Plan: Stable, continue routine medications. Patient is on multiple agents which could indicate advanced disease. 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 Continue glipizide. Will add sliding scale insulin - Time Time Spent with patient: 15-24 minutes - Inpatient Certification Medical Necessity: Risk of Diagnosis Which Will Require Inpatient Eval/Care/ Monitoring
[2017-10-24] MEDS: MONTELUKAST SODIUM 10 MG TABLET PO SCH (22:04)
[2017-10-24] MEDS: SERTRALINE HCL 50 MG TABLET PO SCH (22:04)
[2017-10-25] MEDS: HEPARIN SOD (PORCINE) 5,000 UNIT/ML 1 ML SYRINGE SUBCUT SCH ×3 (06:41→21:09)
[2017-10-25 07:09] LABS: ANION GAP 13 (5-19); BLOOD UREA NITROGEN 26 mg/dL (7-20); CALCIUM 9.5 mg/dL (8.4-10.2); CARBON DIOXIDE 28 mmol/L (22-30); CHLORIDE 100 mmol/L (98-107); GLUCOSE 103 mg/dL (75-110); SODIUM 140.6 mmol/L (137-145)
[2017-10-25] MEDS: ROFLUMILAST 500 MCG TABLET PO SCH (10:39)
[2017-10-25] MEDS: DOCUSATE SODIUM 100 MG CAPSULE PO SCH ×2 (10:39→17:38)
[2017-10-25] MEDS: GLIPIZIDE XL 5 MG TAB.ER.24 PO SCH (10:39)
[2017-10-25] MEDS: FUROSEMIDE 40 MG TABLET PO SCH (10:40)
[2017-10-25] MEDS: LISINOPRIL 10 MG TABLET PO SCH (10:40)
[2017-10-25] MEDS: METOPROLOL SUCCINATE 25 MG TAB.SR.24H PO SCH (10:41)
[2017-10-25] MEDS: PREDNISONE 10 MG TABLET PO SCH (10:41)
[2017-10-25] MEDS: DIGOXIN 0.125 MG TABLET PO SCH (10:41)
[2017-10-25] MEDS: LANSOPRAZOLE 30 MG TAB.RAP.DR PO SCH ×2 (10:41→17:38)
[2017-10-25] MEDS: ASPIRIN 81 MG TABLET, CHEWABLE PO SCH (10:42)
[2017-10-25] MEDS: TIOTROPIUM BROMIDE DPI 5 CAP/KIT (18 MCG/CAP) IH SCH (10:42)
[2017-10-25] MEDS: BUDESONIDE/FORMOTEROL 160-4.5 MCG 60 PUFF/6 GM MDI IH SCH ×2 (10:46→21:09)
--- NOTE | 2017-10-25 18:24 | PDOC PROGRESS REPORT ---
Subjective Progress Note for:: 10/25/17 Subjective:: The patient is a 77-year-old male who has a significant risk factors for coronary artery disease. The patient presents with atypical and reproducible chest pain. He was seen by cardiology. At this point time we are planning for further testing with an echocardiogram, and stress test. In light of the fact that we need to ascertain his risk to benefit ratio for using anticoagulation a PT and OT consult have been ordered to assess the patient for fall risk. Echocardiogram has been completed, results are pending. Stress test was performed. Results are pending. Physical therapy consultation was also complete. Reason For Visit: CHEST PAIN, COPD, FALLS Physical Exam Vital Signs: Temp Pulse Resp BP Pulse Ox 98.0 F 73 19 143/79 H 98 10/25/17 15:42 10/25/17 15:42 10/25/17 15:42 10/25/17 15:42 10/25/17 15:42 Intake & Output 10/24/17 10/25/17 10/26/17 06:59 06:59 06:59 Intake Total 746 670 620 Output Total 675 920 100 Balance 71 -250 520 Weight 80.7 kg 89.3 kg Additional comments: The patient is an extremely pleasant but elderly male. He does not appear to be in good health. He appears to be older than the age of 77. His cognition and mentation are fair. He does not remember or recall what tests he has had done. He does understand that he is here for chest pain. The patient also continues to have chest pain which is reproducible today. His facial appearance demonstrates he has some anatomical changes to the left eye socket. This is chronic. He also has dentures and poor dental hygiene. Today, his lungs are clear to auscultation bilaterally. His cardiac exam demonstrates a regular rate and rhythm without murmurs, gallops or rubs. The abdomen is, soft flat and benign. Bowel sounds are present in the lower quadrants. There is no guarding or rebound noted and there are no hernias or masses present. The lower extremities are warm to touch without edema. Skin is clean, warm, dry and intact without lesions or rashes. Results Laboratory Results: 10/23/17 03:03 10/25/17 05:45 10/25/17 05:45 Sodium 140.6 Potassium 4.0 Chloride 100 Carbon Dioxide 28 Anion Gap 13 BUN 26 H Creatinine 1.17 Est GFR ( Amer) > 60 Est GFR (Non-Af Amer) > 60 Glucose 103 Calcium 9.5 Magnesium 2.1 10/23/1718 10/23/17 03:03 03:03 10:55 Creatine Kinase 139 CK-MB (CK-2) 2.43 2.52 Troponin I 0.047 0.042 10/23/17 10/23/17 10/23/17 10:55 15:27 15:27 Creatine Kinase 116 117 CK-MB (CK-2) 2.34 Troponin I 0.035 Impressions: Chest X-Ray 10/22/17 21:16 IMPRESSION: NO ACUTE CARDIOPULMONARY PROCESS. CHRONIC CHANGES ABOVE. Head CT 10/22/17 21:16 IMPRESSION: CHRONIC CHANGES OF ATROPHY AND MICROVASCULAR ISCHEMIA. NO ACUTE PROCESS. EVIDENCE OF ACUTE STROKE: NO. Elbow X-Ray 10/22/17 21:17 IMPRESSION: NO RADIOGRAPHIC EVIDENCE OF ACUTE INJURY. Assessment & Plan - Diagnosis (1) Chest pain Qualifiers: Chest pain type: other chest pain Qualified Code(s): R07.89 - Other chest pain; R07.8 - Other chest pain Is this a current diagnosis for this admission?: Yes Plan: We are going to proceed with recommendations per cardiology. Patient has had echocardiogram and stress testing. Results are pending. continue medical management for potential underlying coronary artery disease with aspirin, beta- bear and ALEJANDRO inhibitor. Patient is not currently on a statin. (2) Atrial fibrillation Is this a current diagnosis for this admission?: Yes Plan: This Is by history. He is currently in sinus rhythm. PT/OT consult have been ordered for assessment of risk for anticoagulation. (3) Fall Qualifiers: Encounter type: initial encounter Qualified Code(s): W19.XXXA - Unspecified fall, initial encounter Is this a current diagnosis for this admission?: Yes Plan: Continue with fall precautions (4) COPD (chronic obstructive pulmonary disease) Qualifiers: Is this a current diagnosis for this admission?: Yes Plan: Stable, continue routine medications. Patient is on multiple agents which could indicate advanced disease. 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 Continue glipizide. SSI. - Time Time Spent with patient: 15-24 minutes - Inpatient Certification Medical Necessity: Risk of Diagnosis Which Will Require Inpatient Eval/Care/ Monitoring
--- NOTE | 2017-10-25 19:30 | XCELERA REPORT ---
[address] [address] Transthoracic Echocardiogram Report Name: HAWA YANG Age: 77 yrs Gender: Male : 1940 Patient Status: Inpatient Patient Location: [address] [place], [place] [address] Study Date: 10/25/2017 01:22 PM Height: 71 in Weight: 177 lb BSA: 2.0 m2 Procedure: A complete two-dimensional transthoracic echocardiogram was performed (2D, M-mode, spectral and color flow Doppler). The study was technically difficult with many images being suboptimal in quality. Reason For Study: Chest pain Ordering Physician: ANNIE WILL Performed By: Jayda Wang Interpretation Summary The Ejection Fraction estimate is 35-40% Left ventricular systolic function is moderately reduced. Doppler measurements suggest pseudonormalized left ventricular relaxation, which is associated with grade II/IV or mild to moderate diastolic dysfunction There is borderline concentric left ventricular hypertrophy. The left ventricle is mildly dilated. There is apical wall akinesis There is distal posterior wall severe hypokinesis Borderline right ventricular enlargement. The left atrium is mildly dilated. The right atrium is normal in size There is a mild amount of mitral regurgitation There is no mitral valve stenosis. There is mild to moderate aortic stenosis There is a peak gradient of 25 mm of Hg. No aortic regurgitation is present. There is a mild amount of tricuspid regurgitation There is mild pulmonary hypertension by echo Right ventricular systolic pressure is estimated to be elevated at 30- 40mmHg. There is no pericardial effusion. MMode/2D Measurements & Calculations RVDd: 3.6 cm LVIDd: 5.7 cm FS: 17.2 % Ao root diam: 3.3 cm IVSd: 1.0 cm LVIDs: 4.7 cm EDV(Teich): 161.6 ml LVPWd: 0.99 cmESV(Teich): 104.4 mlAo root area: 8.3 cm2 EF(Teich): 35.4 % LA dimension: 3.8 cm LVOT diam: 2.3 cm LVOT area: 4.3 cm2 Doppler Measurements & Calculations MV E max tosin: MV P1/2t max tosin: Ao V2 max: LV V1 max P.9 cm/sec 65.6 cm/sec 249.2 cm/sec 5.6 mmHg MV A max tosin: MV P1/2t: 61.7 msec Ao max PG: LV V1 mean P.1 cm/sec MVA(P1/2t): 3.6 cm2 24.8 mmHg 3.0 mmHg MV E/A: 0.46 MV dec slope: Ao V2 mean: LV V1 max: 311.8 cm/sec2 160.8 cm/sec 118.0 cm/sec MV dec time: Ao mean PG: LV V1 mean: 0.21 sec 12.7 mmHg 80.1 cm/sec Ao V2 VTI: LV V1 VTI: 44.7 cm 21.4 cm GLENN(I,D): 2.1 cm2 GLENN(V,D): 2.0 cm2 SV(LVOT): 91.9 ml PA V2 max: TR max tosin: 93.3 cm/sec 281.0 cm/sec PA max P.5 mmHg TR max P.6 mmHg Left Ventricle The left ventricle is mildly dilated. There is borderline concentric left ventricular hypertrophy. Left ventricular systolic function is moderately reduced. The Ejection Fraction estimate is 35-40%. Doppler measurements suggest pseudonormalized left ventricular relaxation, which is associated with grade II/IV or mild to moderate diastolic dysfunction. There is apical wall akinesis. There is distal posterior wall severe hypokinesis. Right Ventricle Borderline right ventricular enlargement. There is normal right ventricular wall thickness. The right ventricular systolic function is normal. Atria The right atrium is normal in size. The left atrium is mildly dilated. Mitral Valve There is mild mitral leaflet calcification. There is mild to moderate mitral annular calcification. There is no mitral valve stenosis. There is a mild amount of mitral regurgitation. Aortic Valve The aortic valve is moderately calcified. There is mild to moderate aortic stenosis. There is a peak gradient of 25 mm of Hg. No aortic regurgitation is present. Tricuspid Valve The tricuspid valve is not well visualized, but is grossly normal. There is no tricuspid stenosis. There is a mild amount of tricuspid regurgitation. There is mild pulmonary hypertension by echo. Right ventricular systolic pressure is estimated to be elevated at 30-40mmHg. Pulmonic Valve The pulmonic valve is not well visualized. Great Vessels The aortic root is not well visualized but is probably normal size. The inferior vena cava was not well visualized. Effusions There is no pericardial effusion. : ANNIE WILL > Bijal Loza
--- NOTE | 2017-10-25 19:39 | PDOC PROGRESS REPORT ---
Subjective Progress Note for:: 10/25/17 Subjective:: Patient complained of chest pain in the stress lab. He was also noted to be actively wheezing therefore sent back to the room. Patient was subsequently interviewed and examined. 2D echo was reviewed which shows depressed LVEF with best estimate being 35-40%. Apical akinesia and also posterior wall akinesia to marked hypokinesia was noted. Mild to moderate aortic stenosis and mild mitral regurgitation was noted. Patient also noted to have mild pulmonary hypertension. Given patient's low LVEF, have ordered a BNP level to rule out CHF. Patient to have stress part performed tomorrow. Patient questions were answered. Reason For Visit: CHEST PAIN, COPD, FALLS Physical Exam Vital Signs: Temp Pulse Resp BP Pulse Ox 98.0 F 73 19 143/79 H 98 10/25/17 15:42 10/25/17 15:42 10/25/17 15:42 10/25/17 15:42 10/25/17 15:42 Intake & Output 10/24/17 10/25/17 10/26/17 06:59 06:59 06:59 Intake Total 746 670 620 Output Total 675 920 100 Balance 71 -250 520 Weight 80.7 kg 89.3 kg Exam: GENERAL: well-nourished and in no acute distress. Alert and oriented x3 HEAD: Atraumatic, normocephalic. EYES: Pupils equal round and reactive to light, extraocular movements intact, sclera anicteric, conjunctiva are normal. ENT: TMs normal, nares patent, oropharynx clear without exudates. Moist mucous membranes. No oral ulcerations or bleeding gums noted NECK: supple without lymphadenopathy. Trachea is central. No cervical or axillary lymphadenopathy noted. Carotids are 2+, JVD WNL LUNGS: Respiration seems nonlabored, no significant accessory muscle action noted. Bilateral scattered wheezes rales or rhonchi noted. No significant dullness noted on percussion. CHEST: Palpation of the chest wall shows no significant chest wall tenderness. No other significant abnormalities noted. 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 ABDOMEN: Soft, no significant tenderness appreciated, normoactive bowel sounds. No guarding, no rebound. No rigidity noted . No masses appreciated. EXTREMITIES: Pedal pulses are 1-2+, no calf tenderness noted. No clubbing or cyanosis.trace to 1+ pedal edema noted NEUROLOGICAL: Focused neurological exam showed no significant neurologic deficit. Normal speech, no focal weakness appreciated. PSYCH: Normal mood, normal affect. Judgment and insight within normal limits. SKIN: No significant ecchymosis, skin is noted to be warm. MUSCULOSKELETAL EXAM: No significant acute joint swelling noted. Results Laboratory Results: 10/23/17 03:03 10/25/17 05:45 10/25/17 05:45 Sodium 140.6 Potassium 4.0 Chloride 100 Carbon Dioxide 28 Anion Gap 13 BUN 26 H Creatinine 1.17 Est GFR ( Amer) > 60 Est GFR (Non-Af Amer) > 60 Glucose 103 Calcium 9.5 Magnesium 2.1 10/23/17 10/23/17 10/23/17 03:03 03:03 10:55 Creatine Kinase 139 CK-MB (CK-2) 2.43 2.52 Troponin I 0.047 0.042 10/23/17 10/23/17 10/23/17 10:55 15:27 15:27 Creatine Kinase 116 117 CK-MB (CK-2) 2.34 Troponin I 0.035 EKG Comments: EKG shows PAT, no acute ST-T wave changes were noted. Impressions: Chest X-Ray 10/22/17 21:16 IMPRESSION: NO ACUTE CARDIOPULMONARY PROCESS. CHRONIC CHANGES ABOVE. Head CT 10/22/17 21:16 IMPRESSION: CHRONIC CHANGES OF ATROPHY AND MICROVASCULAR ISCHEMIA. NO ACUTE PROCESS. EVIDENCE OF ACUTE STROKE: NO. Elbow X-Ray 10/22/17 21:17 IMPRESSION: NO RADIOGRAPHIC EVIDENCE OF ACUTE INJURY. Assessment & Plan - Diagnosis (1) Chest pain Qualifiers: Chest pain type: other chest pain Qualified Code(s): R07.89 - Other chest pain; R07.8 - Other chest pain Is this a current diagnosis for this admission?: Yes (2) Coronary artery disease Qualifiers: Coronary Disease-Associated Artery/Lesion type: unspecified vessel or lesion type [place] vs. transplanted heart: [place] heart Associated angina: angina presence unspecified Qualified Code(s): I25.10 - Atherosclerotic heart disease of [place] coronary artery without angina pectoris Is this a current diagnosis for this admission?: Yes (3) Atrial fibrillation Qualifiers: Atrial fibrillation type: unspecified Qualified Code(s): I48.91 - Unspecified atrial fibrillation Is this a current diagnosis for this admission?: Yes (4) COPD (chronic obstructive pulmonary disease) Qualifiers: Is this a current diagnosis for this admission?: Yes (5) Essential hypertension Is this a current diagnosis for this admission?: Yes (6) Type 2 diabetes mellitus 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 He was also noted to be actively wheezing therefore sent back to the room. Patient was subsequently interviewed and examined. 2D echo was reviewed which shows depressed LVEF with best estimate being 35-40%. Apical akinesia and also posterior wall akinesia to marked hypokinesia was noted. Mild to moderate aortic stenosis and mild mitral regurgitation was noted. Patient also noted to have mild pulmonary hypertension. Given patient's low LVEF, have ordered a BNP level to rule out CHF. Patient to have stress part performed tomorrow. Patient questions were answered. Chest pain: Somewhat atypical but given patient risk factors, abnormal wall motion abnormalities on echocardiogram, agreed that patient will benefit from a nuclear stress test. This will be scheduled. There is intermediate to high probability that chest discomfort is from underlying coronary artery disease. CAD: This is strongly suspected based on abnormal echocardiogram. Further evaluation by a nuclear stress test. Atrial fibrillation: Patient carries this diagnosis. However rhythm strip shows paroxysmal atrial tachycardia. Will check rhythm strip more carefully tomorrow. COPD: Patient noted to have active wheezing. Continue current management plans. Hypertension: Reasonably well controlled. Blood pressure goal in this patient is 140/90 or less. This was discussed with the patient. Currently blood pressure under reasonable control. Better medication for this patient are ALEJANDRO inhibitor/ARB/beta bear etc. discussed side effects of uncontrolled hypertension and also severe hypotension. Diabetes: Recommend good control of blood sugar. However should avoid any hypoglycemia and hyperglycemia. Patient being expertly managed by primary care M.D/hospitalist - Time Time with patient: Greater than 35 minutes - CODE STATUS was discussed, patient remains full code. Surrogate decision-maker unchanged. Multiple medical problems were addressed. More than 50% of the time spent coordinating care, discussing management plans with involved caregivers. Management plans discussed with involved personnels. Medical decision making was of moderate to high complexity, patient's has multiple comorbidities. Medications reviewed and adjusted accordingly: Yes
[2017-10-25] MEDS: MONTELUKAST SODIUM 10 MG TABLET PO SCH (21:09)
[2017-10-25] MEDS: SERTRALINE HCL 50 MG TABLET PO SCH (21:09)
[2017-10-25] MEDS: ATORVASTATIN CALCIUM 20 MG TABLET PO SCH (21:09)
[2017-10-25] MEDS: INSULIN LISPRO 100 UNIT/ML 3 ML VIAL SUBCUT PRN (21:23)
[2017-10-25] MEDS ORDERED: ATORVASTATIN CALCIUM 40 MG TABLET PO SCH (22:00)
--- NOTE | 2017-10-25 23:39 | EKG REPORT ---
SEVERITY:- ABNORMAL ECG - SINUS TACHYCARDIA SHORT PAT RUN LEFT ANTERIOR FASCICULAR BLOCK : Confirmed by: Bijal Loza 25-Oct-2017 23:38:39
[2017-10-26] MEDS: HEPARIN SOD (PORCINE) 5,000 UNIT/ML 1 ML SYRINGE SUBCUT SCH ×3 (06:00→21:41)
[2017-10-26] MEDS: ROFLUMILAST 500 MCG TABLET PO SCH (11:25)
[2017-10-26] MEDS: METOPROLOL SUCCINATE 25 MG TAB.SR.24H PO SCH (11:25)
[2017-10-26] MEDS: GLIPIZIDE XL 5 MG TAB.ER.24 PO SCH (11:28)
[2017-10-26] MEDS: LISINOPRIL 10 MG TABLET PO SCH (11:28)
[2017-10-26] MEDS: PREDNISONE 10 MG TABLET PO SCH (11:28)
[2017-10-26] MEDS: FUROSEMIDE 40 MG TABLET PO SCH (11:28)
[2017-10-26] MEDS: DIGOXIN 0.125 MG TABLET PO SCH (11:29)
[2017-10-26] MEDS: LANSOPRAZOLE 30 MG TAB.RAP.DR PO SCH ×2 (11:29→17:50)
[2017-10-26] MEDS: ASPIRIN 81 MG TABLET, CHEWABLE PO SCH (11:29)
[2017-10-26] MEDS: DOCUSATE SODIUM 100 MG CAPSULE PO SCH ×2 (11:29→17:50)
[2017-10-26] MEDS: TIOTROPIUM BROMIDE DPI 5 CAP/KIT (18 MCG/CAP) IH SCH (11:30)
[2017-10-26] MEDS: BUDESONIDE/FORMOTEROL 160-4.5 MCG 60 PUFF/6 GM MDI IH SCH ×2 (11:30→21:41)
[2017-10-26] MEDS: INSULIN LISPRO 100 UNIT/ML 3 ML VIAL SUBCUT PRN (18:00)
[2017-10-26] MEDS: ATORVASTATIN CALCIUM 20 MG TABLET PO SCH (21:41)
[2017-10-26] MEDS: MONTELUKAST SODIUM 10 MG TABLET PO SCH (21:41)
[2017-10-26] MEDS: SERTRALINE HCL 50 MG TABLET PO SCH (21:41)
[2017-10-27] MEDS: HEPARIN SOD (PORCINE) 5,000 UNIT/ML 1 ML SYRINGE SUBCUT SCH ×2 (05:05→14:42)
--- NOTE | 2017-10-27 05:55 | PDOC PROGRESS REPORT ---
Subjective Progress Note for:: 10/26/17 Subjective:: No new issues. Nursing states that pt is wanting for stress test. Reason For Visit: CHEST PAIN, COPD, FALLS Physical Exam Vital Signs: Temp Pulse Resp BP Pulse Ox 98.4 F 71 16 121/63 98 10/26/17 23:32 10/27/17 02:00 10/26/17 23:32 10/26/17 23:32 10/26/17 23:32 Intake & Output 10/25/17 10/26/17 10/27/17 06:59 06:59 06:59 Intake Total 670 1064 420 Output Total 920 200 750 Balance -250 864 -330 Weight 89.3 kg 89.3 kg General appearance: PRESENT: no acute distress, well-developed, well-nourished Head exam: PRESENT: atraumatic, normocephalic Eye exam: PRESENT: conjunctiva pink, EOMI. ABSENT: scleral icterus Ear exam: PRESENT: normal external ear exam Mouth exam: PRESENT: moist, tongue midline Neck exam: ABSENT: carotid bruit, JVD, lymphadenopathy, thyromegaly Respiratory exam: PRESENT: clear to auscultation laure. ABSENT: rales, rhonchi, wheezes Cardiovascular exam: PRESENT: RRR. ABSENT: diastolic murmur, rubs, systolic murmur Pulses: PRESENT: normal dorsalis pedis pul Vascular exam: PRESENT: normal capillary refill GI/Abdominal exam: PRESENT: normal bowel sounds, soft. ABSENT: distended, guarding, mass, organolmegaly, rebound, tenderness Rectal exam: PRESENT: deferred Extremities exam: PRESENT: full ROM. ABSENT: calf tenderness, clubbing, pedal edema Neurological exam: PRESENT: alert, awake, oriented to person, oriented to place , oriented to time, oriented to situation, CN II-XII grossly intact. ABSENT: motor sensory deficit Psychiatric exam: PRESENT: appropriate affect, normal mood. ABSENT: homicidal ideation, suicidal ideation Skin exam: PRESENT: dry, intact, warm. ABSENT: cyanosis, rash Results Laboratory Results: 10/23/17 03:03 10/25/17 05:45 10/23/17 10/23/17 10/23/17 03:03 03:03 10:55 Creatine Kinase 139 CK-MB (CK-2) 2.43 2.52 Troponin I 0.047 0.042 NT-Pro-B Natriuret Pep 10/23/17 10/23/17 10/23/17 10:55 15:27 15:27 Creatine Kinase 116 117 CK-MB (CK-2) 2.34 Troponin I 0.035 NT-Pro-B Natriuret Pep 10/25/17 20:02 Creatine Kinase CK-MB (CK-2) Troponin I NT-Pro-B Natriuret Pep 919 H Impressions: Chest X-Ray 10/22/17 21:16 IMPRESSION: NO ACUTE CARDIOPULMONARY PROCESS. CHRONIC CHANGES ABOVE. Head CT 10/22/17 21:16 IMPRESSION: CHRONIC CHANGES OF ATROPHY AND MICROVASCULAR ISCHEMIA. NO ACUTE PROCESS. EVIDENCE OF ACUTE STROKE: NO. Elbow X-Ray 10/22/17 21:17 IMPRESSION: NO RADIOGRAPHIC EVIDENCE OF ACUTE INJURY. Assessment & Plan - Diagnosis (1) Atrial fibrillation Qualifiers: Atrial fibrillation type: unspecified Qualified Code(s): I48.91 - Unspecified atrial fibrillation Is this a current diagnosis for this admission?: Yes Plan: Will continue current medications. Will speak to cardiology about anticoagulation. (2) Chest pain Qualifiers: Chest pain type: other chest pain Qualified Code(s): R07.89 - Other chest pain; R07.8 - Other chest pain Is this a current diagnosis for this admission?: Yes Plan: Nuclear stress test pending. (3) Fall Qualifiers: Encounter type: initial encounter Qualified Code(s): W19.XXXA - Unspecified fall, initial encounter Is this a current diagnosis for this admission?: Yes Plan: PT/OT. (4) COPD (chronic obstructive pulmonary disease) Qualifiers: Is this a current diagnosis for this admission?: Yes Plan: continue current treatment. 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 - Time Time Spent with patient: Less than 15 minutes
--- NOTE | 2017-10-27 08:58 | EKG REPORT ---
SEVERITY:- ABNORMAL ECG - SINUS RHYTHM IVCD, CONSIDER ATYPICAL LBBB NONSPECIFIC T INVERSION LATERAL CHEST LEADS : Confirmed by: Bijal Loza 27-Oct-2017 08:58:12
[2017-10-27] MEDS: DIGOXIN 0.125 MG TABLET PO SCH (11:29)
[2017-10-27] MEDS: METOPROLOL SUCCINATE 25 MG TAB.SR.24H PO SCH (11:29)
[2017-10-27] MEDS: ASPIRIN 81 MG TABLET, CHEWABLE PO SCH (11:39)
[2017-10-27] MEDS: GLIPIZIDE XL 5 MG TAB.ER.24 PO SCH (11:40)
[2017-10-27] MEDS: PREDNISONE 10 MG TABLET PO SCH (11:41)
[2017-10-27] MEDS: LANSOPRAZOLE 30 MG TAB.RAP.DR PO SCH (11:41)
[2017-10-27] MEDS: LISINOPRIL 10 MG TABLET PO SCH (11:41)
[2017-10-27] MEDS: FUROSEMIDE 40 MG TABLET PO SCH (11:42)
[2017-10-27] MEDS: DOCUSATE SODIUM 100 MG CAPSULE PO SCH (11:42)
[2017-10-27] MEDS: ROFLUMILAST 500 MCG TABLET PO SCH (11:43)
[2017-10-27] MEDS: TIOTROPIUM BROMIDE DPI 5 CAP/KIT (18 MCG/CAP) IH SCH (11:43)
[2017-10-27] MEDS: BUDESONIDE/FORMOTEROL 160-4.5 MCG 60 PUFF/6 GM MDI IH SCH (11:43)
--- NOTE | 2017-10-27 12:53 | DRAGON STRESS TEST REPORT ---
INTRAVENOUS LEXISCAN CARDIOLITE STRESS TEST USING SINGLE PHOTON EMMISION COMPUTERIZED TOMOGRAPHIC. DATE OF PROCEDURE: October 27, 2017, INDICATION : Chest pain CARDIAC RISK FACTORS: Diabetes, hypertension RESTING EKG: Sinus rhythm, left axis deviation, loss of R-wave lateral chest leads STRESS EKG: No significant ST segment changes noted with LexiScan bolus REASON FOR TERMINATION: Protocol. PROCEDURE REPORT: Baseline heart rate 63 beats per minute with blood pressure of 129/63. Patient had no significant complaints. Patient was bolused with Lexiscan 0.4 mg intravenously followed by saline bolus. Heart rate at 2 minutes post bolus 80 with a blood pressure of 97/60. 3 minutes post bolus heart rate 64 with blood pressure of 132/63. No significant EKG changes were noted. Patient had no significant complaints during the procedure or postprocedure. Patient injected with Aminophyllin 75 mg at 3 minutes or later after Lexiscan bolus. CONCLUSIONS: Normal EKG and hemodynamic response to IV LexiScan. NUCLEAR DATA: At rest the patient was given 12.71 millicuries of technetium 99 sestamibi injected intravenously. As per protocol rest gated SPECT images were obtained. On day of stress test, the patient was given intravenous LexiScan at a dose of 0.4 mg in 5 mL intravenously, followed by flush with normal saline. Subsequently the stress dose of 32.8 millicuries of technetium 99 sestamibi was injected intravenously. As per protocol stress gated images were obtained. NUCLEAR INTERPRETATION: Both raw and processed data were used for interpretation. Visual, qualitative, computer-generated quantitative data was used. There was good myocardial uptake of technetium compound. Motion artifact and soft tissue attenuations were noted. Increased visceral uptake was noted. No definitive areas of transient perfusion defect noted, and area of severe fixed defect noted involving the inferior wall, inferior apex and inferolateral wall of the left ventricle. EKG gated imaging showed LV EF at 27 %, rest and stress gated EF similar visually, inferior and inferolateral akinesia noted. T. I D. ratio was 0.99. Lung heart ratio noted to be within normal limits 0.35. No significant extracardiac and abnormal radiotracer activities were noted. RV free wall uptake was noted to be WNL. IMPRESSION: Also refer to comments under nuclear interpretation. Also test results needs to be interpreted in the context of pretest probability. 1. No definitive areas of transient perfusion defect noted. 2. Severe fixed defect indicative of prior myocardial infarction noted involving the inferior wall, inferior apex and inferolateral wall of the left ventricle. 3. EKG gated imaging shows left ventricular ejection fraction of approx. 27 %, inferior and inferolateral akinesia noted. 4. Clinical correlation requested as occasionally single vessel disease or balanced ischemia could be missed. In approximately 10% of the cases Lexiscan may not cause adequate vasodilatory stress. RECOMMENDATIONS: Aggressive risk factor modification and medical management. Further evaluation may be needed if continued symptoms or other high risk indicators are noted on clinical evaluation. Close cardiology follow-up is also recommended. Clinical correlation with echocardiogram derived ejection fraction. Inability to exercise by itself can lead to increased cardiovascular event risks. Consider cardiology consultation and or follow-up if clinically indicated. I am available for cardiology evaluation and consultation if requested by the senior capital markets specialist, unless patient already has a sql engineer. ELADIO
[2017-10-27] MEDS ORDERED: REGADENOSON INJ 0.4 MG/5 ML DISP.SYRIN IV ONE (15:52)
[2017-10-27] MEDS ORDERED: AMINOPHYLLINE INJ/PF 250 MG/10 ML SDV IV ONE (15:52)
--- NOTE | 2017-10-27 16:59 | PDOC DISCHARGE SUMMARY ---
General - Admit/Disc Date/PCP Admission Date/Primary Care Provider: 10/23/17 00:03 MARCELO GIORDANO MD Discharge Date: 10/27/17 - Discharge Diagnosis (1) Atrial fibrillation Is this a current diagnosis for this admission?: Yes Summary: Patient will continue on home medications and Eliquis. Patient will need to follow-up with outpatient doctor to discuss whether they feel that he should continue on Eliquis due to patient with recent fall (2) Chest pain Is this a current diagnosis for this admission?: Yes Summary: Patient's nuclear stress test demonstrated no evidence of ischemia. Patient's chest pain is noncardiac. (3) Fall Is this a current diagnosis for this admission?: Yes Summary: We will arrange for home PT OT to evaluate patient. (4) COPD (chronic obstructive pulmonary disease) Is this a current diagnosis for this admission?: Yes Summary: No issues during this hospital stay (5) Type 2 diabetes mellitus Is this a current diagnosis for this admission?: Yes Summary: Resume home medication - Additional Information Resuscitation Status: Full Code Discharge Diet: Cardiac, Diabetic Discharge Activity: Activity As Tolerated Home Medications: Apixaban [Eliquis 5 mg Tablet] 5 mg PO Q12 10/23/17 Digoxin [Lanoxin 0.125 mg Tablet] 0.125 mg PO DAILY 10/23/17 Fluticasone/Salmeterol [Advair 500-50 Diskus 14 Dose/Diskus] 1 puff IH Q12 10/23 Furosemide [Lasix 40 mg Tablet] 60 mg PO DAILY 10/23/17 Glipizide [Glipizide Xl] 2.5 mg PO DAILY 10/23/17 Iron Polysaccharide Complex [Ferrex 150] 150 mg PO DAILY 10/23/17 Levalbuterol HCl [Xopenex Neb 1.25 mg/3 ml Ampul] 1 vial NEB Q8HP PRN 10/23/17 Lisinopril [Prinivil 5 mg Tablet] 5 mg PO DAILY 10/23/17 Metoprolol Succinate [Toprol Xl 50 mg Tab.sr] 50 mg PO DAILY 10/23/17 Montelukast Sodium [Singulair 10 mg Tablet] 10 mg PO DAILY 10/23/17 Omeprazole 20 mg PO DAILY 10/23/17 Roflumilast [Daliresp 500 mcg Tablet] 500 mcg PO DAILY 10/23/17 Sertraline HCl [Zoloft] 100 mg PO QHS 10/23/17 Tiotropium [place] [Spiriva [place] 18 mcg/dose (30 Dose)] 1 cap PO DAILY Digoxin [Lanoxin 0.125 mg Tablet] 0.125 mg PO DAILY tablet 10/27/17 Furosemide [Lasix 40 mg Tablet] 40 mg PO DAILY tablet 10/27/17 Glipizide [Glucotrol Xl 5 mg Tab.er] 10 mg PO DAILY tab.er.24 10/27/17 History of Present Illness Patient complains of: Presented to hospital with complaint of chest pain History of Present Illness: HAWA YANG is a 77 year old male admitted to hospital with complaint of chest pain. Patient reported that he had chest pain that lasted for 6 hours and he promptly called EMS after taking a sublingual nitro which resolved pain. Hospital Course Hospital Course: Patient 77-year-old gentleman who presented to our facility with complaint of chest pain. Patient had nuclear stress test that demonstrated no evidence of ischemia and 2D echo that demonstrated no new changes. Patient had no further issues during hospital stay. Patient had given report a fall at home and therefore there was question as to whether patient should remain on anticoagulation. At this time decision has been made to continue anticoagulation for now until patient is able to follow with his PCP. In the meantime will arrange home health for PT OT evaluate patient as well as nursing for medication administration. Physical Exam Vital Signs: Temp Pulse Resp BP Pulse Ox 97.5 F 71 20 140/62 H 97 10/27/17 11:38 10/27/17 11:38 10/27/17 11:38 10/27/17 11:38 10/27/17 11:38 Intake & Output 10/26/17 10/27/17 10/28/17 06:59 06:59 06:59 Intake Total 1064 1430 Output Total 200 1150 Balance 864 280 Weight 89.3 kg 89.3 kg General appearance: PRESENT: no acute distress, well-developed, well-nourished Head exam: PRESENT: atraumatic, normocephalic Eye exam: PRESENT: conjunctiva pink, EOMI. ABSENT: scleral icterus Ear exam: PRESENT: normal external ear exam Mouth exam: PRESENT: moist, tongue midline Neck exam: ABSENT: carotid bruit, JVD, lymphadenopathy, thyromegaly Respiratory exam: PRESENT: clear to auscultation laure. ABSENT: rales, rhonchi, wheezes Cardiovascular exam: PRESENT: irregular rhythm. ABSENT: diastolic murmur, rubs , systolic murmur Pulses: PRESENT: normal dorsalis pedis pul Vascular exam: PRESENT: normal capillary refill GI/Abdominal exam: PRESENT: normal bowel sounds, soft. ABSENT: distended, guarding, mass, organolmegaly, rebound, tenderness Rectal exam: PRESENT: deferred Extremities exam: PRESENT: full ROM. ABSENT: calf tenderness, clubbing, pedal edema Musculoskeletal exam: PRESENT: full ROM Neurological exam: PRESENT: alert, awake, oriented to person, oriented to place , oriented to time, oriented to situation, CN II-XII grossly intact. ABSENT: motor sensory deficit Psychiatric exam: PRESENT: appropriate affect, normal mood. ABSENT: homicidal ideation, suicidal ideation Skin exam: PRESENT: dry, intact, warm. ABSENT: cyanosis, rash Results Laboratory Results: 10/23/17 03:03 10/25/17 05:45 10/23/17 10/23/17 10/23/17 03:03 03:03 10:55 Creatine Kinase 139 CK-MB (CK-2) 2.43 2.52 Troponin I 0.047 0.042 NT-Pro-B Natriuret Pep 10/23/17 10/23/17 10/23/17 10:55 15:27 15:27 Creatine Kinase 116 117 CK-MB (CK-2) 2.34 Troponin I 0.035 NT-Pro-B Natriuret Pep 10/25/17 20:02 Creatine Kinase CK-MB (CK-2) Troponin I NT-Pro-B Natriuret Pep 919 H Impressions: Chest X-Ray 10/22/17 21:16 IMPRESSION: NO ACUTE CARDIOPULMONARY PROCESS. CHRONIC CHANGES ABOVE. Head CT 10/22/17 21:16 IMPRESSION: CHRONIC CHANGES OF ATROPHY AND MICROVASCULAR ISCHEMIA. NO ACUTE PROCESS. EVIDENCE OF ACUTE STROKE: NO. Elbow X-Ray 10/22/17 21:17 IMPRESSION: NO RADIOGRAPHIC EVIDENCE OF ACUTE INJURY. Qualifiers - * PATEINT BEING DISCHARGED WITH ANY OF THE FOLLOWING DIAGNOSIS?: No
[2017-10-27 17:29] VITALS: BP 127/66
--- NOTE | 2017-10-27 19:52 | PDOC PROGRESS REPORT ---
Subjective Progress Note for:: 10/26/17 Subjective:: Patient complained of chest pain in the stress lab. He was also noted to be actively wheezing therefore sent back to the room. Patient was subsequently interviewed and examined. 2D echo was reviewed which shows depressed LVEF with best estimate being 35-40%. Apical akinesia and also posterior wall akinesia to marked hypokinesia was noted. Mild to moderate aortic stenosis and mild mitral regurgitation was noted. Patient also noted to have mild pulmonary hypertension. Given patient's low LVEF, have ordered a BNP level to rule out CHF. Patient to have stress part performed tomorrow. Patient questions were answered. Reason For Visit: CHEST PAIN, COPD, FALLS Physical Exam Vital Signs: Temp Pulse Resp BP Pulse Ox 97.8 F 68 19 138/67 H 97 10/26/17 15:48 10/26/17 15:48 10/26/17 15:48 10/26/17 15:48 10/26/17 15:48 Intake & Output 10/25/17 10/26/17 10/27/17 06:59 06:59 06:59 Intake Total 670 1064 420 Output Total 920 200 750 Balance -250 864 -330 Weight 89.3 kg 89.3 kg Exam: GENERAL: well-nourished and in no acute distress. Alert and oriented x3 HEAD: Atraumatic, normocephalic. EYES: Pupils equal round and reactive to light, extraocular movements intact, sclera anicteric, conjunctiva are normal. ENT: TMs normal, nares patent, oropharynx clear without exudates. Moist mucous membranes. No oral ulcerations or bleeding gums noted NECK: supple without lymphadenopathy. Trachea is central. No cervical or axillary lymphadenopathy noted. Carotids are 2+, JVD WNL LUNGS: Respiration seems nonlabored, no significant accessory muscle action noted. Few a scattered wheezes rales or rhonchi noted. No significant dullness noted on percussion. CHEST: Palpation of the chest wall shows no significant chest wall tenderness. No other significant abnormalities noted. 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 ABDOMEN: Soft, no significant tenderness appreciated, normoactive bowel sounds. No guarding, no rebound. No rigidity noted . No masses appreciated. EXTREMITIES: Pedal pulses are 1-2+, no calf tenderness noted. No clubbing or cyanosis.trace pedal edema noted NEUROLOGICAL: Focused neurological exam showed no significant neurologic deficit. Normal speech, no focal weakness appreciated. PSYCH: Normal mood, normal affect. Judgment and insight within normal limits. SKIN: No significant ecchymosis, skin is noted to be warm. MUSCULOSKELETAL EXAM: No significant acute joint swelling noted. Results Laboratory Results: 10/23/17 03:03 10/25/17 05:45 10/23/17 10/23/17 10/23/17 03:03 03:03 10:55 Creatine Kinase 139 CK-MB (CK-2) 2.43 2.52 Troponin I 0.047 0.042 NT-Pro-B Natriuret Pep 10/23/17 10/23/17 10/23/17 10:55 15:27 15:27 Creatine Kinase 116 117 CK-MB (CK-2) 2.34 Troponin I 0.035 NT-Pro-B Natriuret Pep 10/25/17 20:02 Creatine Kinase CK-MB (CK-2) Troponin I NT-Pro-B Natriuret Pep 919 H EKG Comments: Shows sinus rhythm without any sustained tachycardia or bradycardia. Impressions: Chest X-Ray 10/22/17 21:16 IMPRESSION: NO ACUTE CARDIOPULMONARY PROCESS. CHRONIC CHANGES ABOVE. Head CT 10/22/17 21:16 IMPRESSION: CHRONIC CHANGES OF ATROPHY AND MICROVASCULAR ISCHEMIA. NO ACUTE PROCESS. EVIDENCE OF ACUTE STROKE: NO. Elbow X-Ray 10/22/17 21:17 IMPRESSION: NO RADIOGRAPHIC EVIDENCE OF ACUTE INJURY. Assessment & Plan - Diagnosis (1) Chest pain Qualifiers: Chest pain type: other chest pain Qualified Code(s): R07.89 - Other chest pain; R07.8 - Other chest pain Is this a current diagnosis for this admission?: Yes (2) Coronary artery disease Qualifiers: Coronary Disease-Associated Artery/Lesion type: unspecified vessel or lesion type [place] vs. transplanted heart: [place] heart Associated angina: angina presence unspecified Qualified Code(s): I25.10 - Atherosclerotic heart disease of [place] coronary artery without angina pectoris Is this a current diagnosis for this admission?: Yes (3) Atrial fibrillation Qualifiers: Atrial fibrillation type: unspecified Qualified Code(s): I48.91 - Unspecified atrial fibrillation Is this a current diagnosis for this admission?: Yes (4) COPD (chronic obstructive pulmonary disease) Qualifiers: Is this a current diagnosis for this admission?: Yes (5) Essential hypertension Is this a current diagnosis for this admission?: Yes (6) Type 2 diabetes mellitus Qualifiers: Diabetes mellitus watermaster insulin use: without custodial use Diabetes mellitus complication status: with unspecified complications Qualified Code(s) : E11.8 - Type 2 diabetes mellitus with unspecified complications Is this a current diagnosis for this admission?: Yes - Notes Notes: There has been no significant change since yesterday. For some reason patient ate breakfast and also drank coffee therefore pharmacologic nuclear stress could not be performed. This has been rescheduled for tomorrow. Risk benefits of the nuclear stress test were discussed with the patient. He is agreeable to pursue the stress test. Chest pain: Somewhat atypical but given patient risk factors, abnormal wall motion abnormalities on echocardiogram, agreed that patient will benefit from a nuclear stress test. This will be scheduled. There is intermediate to high probability that chest discomfort is from underlying coronary artery disease. CAD: This is strongly suspected based on abnormal echocardiogram. Further evaluation by a nuclear stress test. Atrial fibrillation: Patient carries this diagnosis. However rhythm strip shows paroxysmal atrial tachycardia. Will check rhythm strip more carefully tomorrow. COPD: Patient noted to have active wheezing. Continue current management plans. Hypertension: Reasonably well controlled. Blood pressure goal in this patient is 140/90 or less. This was discussed with the patient. Currently blood pressure under reasonable control. Better medication for this patient are ALEJANDRO inhibitor/ARB/beta bear etc. discussed side effects of uncontrolled hypertension and also severe hypotension. Diabetes: Recommend good control of blood sugar. However should avoid any hypoglycemia and hyperglycemia. Patient being expertly managed by primary care M.D/hospitalist - Time Time with patient: 15-25 minutes - More than 50% of the time spent coordinating care, discussing management plans with involved caregivers. Management plans discussed with involved personnels. Medical decision making was of moderate to high complexity, patient's has multiple comorbidities. Medications reviewed and adjusted accordingly: Yes
--- NOTE | 2017-10-27 19:57 | PDOC PROGRESS REPORT ---
Subjective Progress Note for:: 10/27/17 Subjective:: Patient seems to be doing better with gradual improvement. Pt is denying any chest arm or neck discomfort. Patient denying any PND, orthopnea. Patient denied any sustained palpitations, dizziness, syncope, near syncope. Patient denying any fever chills. Patient denying any other significant discomfort. Patient underwent nuclear stress test without any complications. Patient is maintaining sinus rhythm. Review of systems: Rest review of systems negative. Medications: Medications have been reviewed. Reason For Visit: CHEST PAIN, COPD, FALLS Physical Exam Vital Signs: Temp Pulse Resp BP Pulse Ox 97.5 F 71 20 127/66 H 97 10/27/17 17:26 10/27/17 17:26 10/27/17 17:26 10/27/17 17:26 10/27/17 17:26 Intake & Output 10/26/17 10/27/17 10/28/17 06:59 06:59 06:59 Intake Total 1064 1430 655 Output Total 200 1150 Balance 864 280 655 Weight 89.3 kg 89.3 kg Exam: GENERAL: well-nourished and in no acute distress. Alert and oriented x3 HEAD: Atraumatic, normocephalic. EYES: Pupils equal round and reactive to light, extraocular movements intact, sclera anicteric, conjunctiva are normal. ENT: TMs normal, nares patent, oropharynx clear without exudates. Moist mucous membranes. No oral ulcerations or bleeding gums noted NECK: supple without lymphadenopathy. Trachea is central. No cervical or axillary lymphadenopathy noted. Carotids are 2+, JVD WNL LUNGS: Respiration seems nonlabored, no significant accessory muscle action noted. Few a scattered wheezes rales or rhonchi noted. No significant dullness noted on percussion. CHEST: Palpation of the chest wall shows no significant chest wall tenderness. No other significant abnormalities noted. 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 ABDOMEN: Soft, no significant tenderness appreciated, normoactive bowel sounds. No guarding, no rebound. No rigidity noted . No masses appreciated. EXTREMITIES: Pedal pulses are 1-2+, no calf tenderness noted. No clubbing or cyanosis.trace pedal edema noted NEUROLOGICAL: Focused neurological exam showed no significant neurologic deficit. Normal speech, no focal weakness appreciated. PSYCH: Normal mood, normal affect. Judgment and insight within normal limits. SKIN: No significant ecchymosis, skin is noted to be warm. MUSCULOSKELETAL EXAM: No significant acute joint swelling noted. Results Laboratory Results: 10/23/17 03:03 10/25/17 05:45 10/23/17 10/23/17 10/23/17 03:03 03:03 10:55 Creatine Kinase 139 CK-MB (CK-2) 2.43 2.52 Troponin I 0.047 0.042 NT-Pro-B Natriuret Pep 10/23/17 10/23/17 10/23/17 10:55 15:27 15:27 Creatine Kinase 116 117 CK-MB (CK-2) 2.34 Troponin I 0.035 NT-Pro-B Natriuret Pep 10/25/17 20:02 Creatine Kinase CK-MB (CK-2) Troponin I NT-Pro-B Natriuret Pep 919 H EKG Comments: Telemetry strips shows sinus rhythm with occasional APCs and VPCs. Impressions: Chest X-Ray 10/22/17 21:16 IMPRESSION: NO ACUTE CARDIOPULMONARY PROCESS. CHRONIC CHANGES ABOVE. Head CT 10/22/17 21:16 IMPRESSION: CHRONIC CHANGES OF ATROPHY AND MICROVASCULAR ISCHEMIA. NO ACUTE PROCESS. EVIDENCE OF ACUTE STROKE: NO. Elbow X-Ray 10/22/17 21:17 IMPRESSION: NO RADIOGRAPHIC EVIDENCE OF ACUTE INJURY. Assessment & Plan - Diagnosis (1) Chest pain Qualifiers: Chest pain type: other chest pain Qualified Code(s): R07.89 - Other chest pain; R07.8 - Other chest pain Is this a current diagnosis for this admission?: Yes (2) Coronary artery disease Qualifiers: Coronary Disease-Associated Artery/Lesion type: unspecified vessel or lesion type [place] vs. transplanted heart: [place] heart Associated angina: angina presence unspecified Qualified Code(s): I25.10 - Atherosclerotic heart disease of [place] coronary artery without angina pectoris Is this a current diagnosis for this admission?: Yes (3) Atrial fibrillation Qualifiers: Atrial fibrillation type: unspecified Qualified Code(s): I48.91 - Unspecified atrial fibrillation Is this a current diagnosis for this admission?: Yes (4) COPD (chronic obstructive pulmonary disease) Qualifiers: Is this a current diagnosis for this admission?: Yes (5) Essential hypertension Is this a current diagnosis for this admission?: Yes (6) Type 2 diabetes mellitus Qualifiers: Diabetes mellitus snf insulin use: without terminal gauger supervisor use Diabetes mellitus complication status: with unspecified complications Qualified Code(s) : E11.8 - Type 2 diabetes mellitus with unspecified complications Is this a current diagnosis for this admission?: Yes - Notes Notes: Chest pain: Patient had nuclear stress test which showed predominantly severe fixed defect suggestive of a severe scar. No areas of ischemia noted. Clinically patient has noncardiac and atypical chest pain. Patient does have known CAD but at this point will recommend medical management with aggressive risk factor modification. Atrial fibrillation: Patient carries this diagnosis. However rhythm strip shows paroxysmal atrial tachycardia. All rhythm strips reviewed. No atrial fibrillation noted. Patient does have some relative contraindication for chronic anticoagulation. 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 Patient can follow-up with me in this regard if he wishes. COPD: Patient noted to have active wheezing. Continue current management plans. Hypertension: Reasonably well controlled. Blood pressure goal in this patient is 140/90 or less. This was discussed with the patient. Currently blood pressure under reasonable control. Better medication for this patient are ALEJANDRO inhibitor/ARB/beta bear etc. discussed side effects of uncontrolled hypertension and also severe hypotension. Diabetes: Recommend good control of blood sugar. However should avoid any hypoglycemia and hyperglycemia. Patient being expertly managed by primary care M.D/hospitalist - Time Time Spent with patient: Patient was seen multiple times. Total time exceeds 40 minutes. In the morning nuclear stress test procedure, risks benefits, alternatives were discussed. Patient seen during the stress test. Patient also seen after stress test when results were discussed with the patient in detail. Patient's questions were answered. Nuclear stress test results were discussed with the patient. Patient was informed that no definitive evidence of pharmacologic stress- induced ischemia noted. Severe fixed defect and depressed LVEF noted. However based on the current study results, would recommend aggressive risk factor modification and medical therapy. It may also be worthwhile to consider evaluation or empiric management of other causes of chest pain. Should no other cause be found and if persistent in having chest pain, then cardiac catheterization should be considered. Right now, recommendations are for aggressive risk factor modification and medical management. Time with patient: Greater than 35 minutes - More than 50% of the time spent coordinating care, discussing management plans with involved caregivers. Management plans discussed with involved personnels. Medical decision making was of moderate to high complexity, patient's has multiple comorbidities. Patient remains full code. Medications reviewed and adjusted accordingly: Yes
== END 2017-10-27 18:05 | disposition home health service (06) ==
LOC: ER 20:57 → EH 10-23 00:03 → 4S 10-23 10:05
PROVIDERS: ADMIT Internal Medicine; ATTEND Internal Medicine
DX: I48.91 Unspecified atrial fibrillation (principal); R07.89 Other chest pain; Z79.02 Long term (current) use of antithrombotics/antiplatelets; W19.XXXA Unspecified fall, initial encounter; J44.9 Chronic obstructive pulmonary disease, unspecified; E11.8 Type 2 diabetes mellitus with unspecified complications; Y92.009 Unspecified place in unspecified non-institutional (private) residence as the place of occurrence of the external cause; D64.9 Anemia, unspecified; I11.0 Hypertensive heart disease with heart failure; I50.9 Heart failure, unspecified; M79.602 Pain in left arm; M79.601 Pain in right arm; I44.7 Left bundle-branch block, unspecified; Z79.899 Other long term (current) drug therapy; I27.20 Pulmonary hypertension, unspecified; R29.898 Other symptoms and signs involving the musculoskeletal system; I35.0 Nonrheumatic aortic (valve) stenosis; R93.1 Abnormal findings on diagnostic imaging of heart and coronary circulation; I34.0 Nonrheumatic mitral (valve) insufficiency; R29.6 Repeated falls; M25.522 Pain in left elbow; S60.511A Abrasion of right hand, initial encounter; S50.312A Abrasion of left elbow, initial encounter; Z91.81 History of falling; Z79.52 Long term (current) use of systemic steroids; Z87.891 Personal history of nicotine dependence; Z82.5 Family history of asthma and other chronic lower respiratory diseases; Z86.73 Personal history of transient ischemic attack (TIA), and cerebral infarction without residual deficits
CPT/HCPCS: 93005 ×3; 99285; 36415 ×2; 82553; 82962 ×5; 82550; 80162; 83735 ×2; 85025; 85610; 80048 ×2; 80053; 81001; 84484; 80061; 83880; 93306; 93017; 71046; 73080; 78452; 70450; 93010 ×3; 94640; 97162; 97167; A9500; J2785; A9270 ×54; J1644 ×5; J3490 ×4; J0280; Q9969; G8978; G8979; G8980; G8987; G8988; G8989; G0378; J1815; J7512; J7620

== ENCOUNTER → 2017-12-31 | Outpatient (CLI) | payer MEDICAID, MEDICARE ==
--- NOTE | 2017-12-31 14:31 | RADIOLOGY REPORT (SQ) ---
EXAM DESCRIPTION: CTA NECK COMPLETED DATE/TIME: 12/31/2017 1:56 pm REASON FOR STUDY: I65.29 OCCLUSION AND STENOSIS OF UNSPECIFIED CAROTID ARTERY I65.29 OCCLUSION AND STENOSIS OF UNSPECIFIED CAROTID ARTERY COMPARISON: None. TECHNIQUE: Axial dynamic scanning technique with dynamic contrast enhancement through the extra-craft center director nial carotid and vertebral arteries. Multiplanar reconstruction. 3-D MIPS and Volume-rendered imag es acquired at the workstation and saved to PACS. Images are reviewed in soft tissue, bone, lung w indows. All CT scanners at this facility use dose modulation, iterative reconstruction, and/or weight based d osing when appropriate to reduce radiation dose to as low as reasonably achievable (ALARA). [facility]: Dose Right [facility]: CareDose [facility]: Dose Right [facility]: Teradose 4D [facility]: [facility] CONTRAST TYPE AND DOSE: contrast/concentration: Isovue 370.00 mg/ml; Total Contrast Delivered: 70.0 ml; Total Saline Delivered: 75.0 ml RENAL FUNCTION: Creatinine 1.1 LIMITATIONS: None. FINDINGS: AORTIC ARCH: Normal three-vessel origin. Bilateral subclavian arteries are patent. Exten sive calcified plaque. No dissection. RIGHT CAROTIDS: Common carotid arteries are patent. Diffusely calcified plaque. Calcified plaque i n the bulb and origin of the ICA. No significant stenosis. RIGHT VERTEBRAL: Patent. No dissection. LEFT CAROTIDS: Common carotid arteries are patent. Diffusely calcified plaque. Calcified plaque in the bulb and origin of the ICA. Less than 50% stenosis proximal ICA. LEFT VERTEBRAL: Patent. No dissection. OTHER: 1 cm left preauricular lymph node. OTHER: 3-D reconstructions confirm findings. IMPRESSION: Diffuse calcified plaque. No significant stenosis. COMMENT: Quality ID #[id number]: Measurements of distal internal carotid diameter were used as the denomina tor for stenosis measurement. TECHNICAL DOCUMENTATION: JOB ID: [id number] Quality ID # [id number]: Final reports with documentation of one or more dose reduction techniques (e.g., Au tomated exposure control, adjustment of the mA and/or kV according to patient size, use of iterative reconstruction technique) 2010 [employer]- All Rights Reserved Reading location - IP/workstation name: [facility]
== END ==
LOC: RAD 12:31
PROVIDERS: ATTEND Physician Assistant Medical
DX: I65.29 Occlusion and stenosis of unspecified carotid artery (principal)
CPT/HCPCS: 70498; 82565

== ENCOUNTER 2018-03-11 00:43 | Emergency (ER) | payer MEDICARE, MEDICAID ==
[2018-03-11] MEDS ORDERED: ONDANSETRON HCL INJ/PF 4 MG/2 ML SDV IV ONE (00:49)
--- NOTE | 2018-03-11 00:56 | ER Document Report ---
ED General - General Mode of Arrival: Medic Information source: Patient TRAVEL OUTSIDE OF THE [place] IN LAST 30 DAYS: No <EFREN MARION - Last Filed: 03/11/18 01:27> <HUSSEIN BELLE - Last Filed: 03/11/18 03:50> - General Stated Complaint: NAUSEA Time Seen by Provider: 03/11/18 00:47 Notes: 77 y.o male presents to the ED with nausea, vomiting and abd pain of onset last night. Pt reports that he was having some abd pain followed by 2-3 episodes of vomiting. He also admits to some recent cough and CP but he denies any current abd pain, CP or cough. Pt also denies any trouble with urination, diarrhea or blood in vomit. (EFREN MARION) - Related Data Allergies/Adverse Reactions: No Known Allergies Allergy (Verified 10/22/17 21:00) Past Medical History - General Information source: Patient - Social History Smoking Status: Unknown if Ever Smoked Lives with: Alone Family History: COPD - Past Medical History Cardiac Medical History: Reports: Hx Atrial Fibrillation, Hx Congestive Heart Failure, Hx Hypertension Pulmonary Medical History: Reports: Hx Asthma, Hx COPD Neurological Medical History: Reports: Hx Cerebrovascular Accident Endocrine Medical History: Reports: Hx Diabetes Mellitus Type 2 Renal/ Medical History: Denies: Hx Peritoneal Dialysis Musculoskeletal Medical History: Reports Hx Arthritis Past Surgical History: Reports: Hx Herniorrhaphy - Immunizations Hx Diphtheria, Pertussis, Tetanus Vaccination: Yes <EFREN MARION - Last Filed: 03/11/18 01:27> Review of Systems - Review of Systems Constitutional: No symptoms reported EENT: No symptoms reported Cardiovascular: See HPI, Chest pain Respiratory: See HPI, Cough Gastrointestinal: See HPI, Abdominal pain, Nausea, Vomiting. denies: Diarrhea, Blood in vomit Genitourinary: See HPI Male Genitourinary: No symptoms reported Musculoskeletal: No symptoms reported Skin: No symptoms reported Hematologic/Lymphatic: No symptoms reported Neurological/Psychological: No symptoms reported -: Yes All other systems reviewed and negative <EFREN MARION - Last Filed: 03/11/18 01:27> Physical Exam <EFREN MARION - Last Filed: 03/11/18 01:27> <HUSSEIN BELLE - Last Filed: 03/11/18 03:50> - Vital signs Vitals: Temp Pulse Resp BP Pulse Ox 98.1 F 68 13 137/69 H 98 03/11/18 00:51 03/11/18 00:51 03/11/18 00:51 03/11/18 00:51 03/11/18 00:51 - Notes Notes: PHYSICAL EXAM GENERAL: Alert. No acute distress. Smells of urine. HEAD: Normocephalic, atraumatic. EYES: Pupils equal, round, and reactive to light. Extraocular movements intact. ENT: Oral mucosa moist, tongue midline. NECK: Full range of motion. Supple. Trachea midline. LUNGS: No rales, or rhonchi. Diffuse bilateral expiratory wheezes. HEART: Regular rate and rhythm. No murmurs, gallops, or rubs. ABDOMEN: Soft, non-tender. Non-distended. Bowel sounds present in all 4 quadrants. No guarding, rebound, or rigidity. EXTREMITIES: Moves all 4 extremities spontaneously. No edema, radial and dorsalis pedis pulses 2/4 bilaterally. No cyanosis. NEUROLOGICAL: Alert and oriented x3. Normal speech. PSYCH: Normal affect, normal mood. SKIN: Warm, dry, normal turgor. No rashes or lesions noted. (EFREN MARION) Course - Laboratory Result Diagrams: 03/11/18 00:38 03/11/18 00:38 <EFREN MARION - Last Filed: 03/11/18 01:27> - Laboratory Result Diagrams: 03/11/18 00:38 03/11/18 00:38 <HUSSEIN BELLE - Last Filed: 03/11/18 03:50> - Re-evaluation Re-evalutation: 03/11/18 02:30 Patient appears well. Taking p.o. No further symptoms. Blood work so far within normal limits. 03/11/18 03:49 Patient is a 77-year-old male who presents with nausea and vomiting after eating a chicken pot pie. No further symptoms here in the ER. No abdominal pain or tenderness. Blood work within normal limits including troponin negative 2. Patient feels well and is taking p.o. We will arrange a ride home for him. His COPD is at baseline. Follow-up with PMD. Stable for discharge. Agrees with plan. (HUSSEIN BELLE) - Vital Signs Vital signs: Temp Pulse Resp BP Pulse Ox 98.1 F 68 13 137/69 H 98 03/11/18 00:51 03/11/18 00:51 03/11/18 00:51 03/11/18 00:51 03/11/18 00:51 - Laboratory Laboratory results interpreted by me: 03/11/18 03/11/18 03/11/18 00:38 00:38 01:00 Hgb 12.9 L RDW 15.4 H Glucose 140 H ALT 17 L Urine Blood SMALL H Urine Urobilinogen 2.0 H Ur Leukocyte Esterase TRACE H Discharge <EFREN MARION - Last Filed: 03/11/18 01:27> <HUSSEIN BELLE - Last Filed: 03/11/18 03:50> - Discharge Clinical Impression: Nausea & vomiting, COPD (chronic obstructive pulmonary disease) Condition: Stable Disposition: HOME, SELF-CARE Instructions: Vomiting (OM), Chronic Obstructive Lung Disease ([facility]) Referrals: LAQUITA FLORES PA-C [Primary Care Provider] - Follow up tomorrow Scribe Attestation: 03/11/18 03:50 I personally performed the services described in the documentation, reviewed and edited the documentation which was dictated to the scribe in my presence, and it accurately records my words and actions. (HUSSEIN BELLE) Scribe Documentation - Scribe Written by Virgil:: Virgil Treviño 03/11/18 [id number] acting as scribe for :: Sammie <EFREN MARION - Last Filed: 03/11/18 01:27>
[2018-03-11 01:13] LABS: ABSOLUTE BASOPHILS # (AUTO) 0.1 10^3/uL (0.0-0.2); ABSOLUTE EOSINOPHILS # (AUTO) 0.2 10^3/uL (0.0-0.6); ABSOLUTE LYMPHOCYTES (AUTO) 1.8 10^3/uL (0.5-4.7); ABSOLUTE MONOCYTES (AUTO) 0.8 10^3/uL (0.1-1.4); ABSOLUTE NEUT (AUTO) 6.8 10^3/uL (1.7-8.2); BASOPHILS % (AUTO) 0.5 % (0-2); EOSINOPHILS % (AUTO) 2.5 % (0-6); HEMATOCRIT 38.3 % (37.9-51.0); HEMOGLOBIN 12.9 g/dL (13.5-17.0); LYMPHOCYTES % (AUTO) 18.1 % (13-45); MEAN CORPUSCULAR HGB CONC 33.8 g/dL (32.0-36.0); MEAN CORPUSCULAR VOLUME 86 fl (80-97); MONOCYTES % (AUTO) 8.7 % (3-13); PLATELET COUNT 207 10^3/uL (150-450); RED BLOOD COUNT 4.47 10^6/uL (4.35-5.55); RED CELL DISTRIBUTION WIDTH 15.4 % (11.5-14.0); SEGMENTED NEUTROPHILS % (AUTO) 70.2 % (42-78); TOTAL CELLS COUNTED % (AUTO) 100 %; WHITE BLOOD COUNT 9.7 10^3/uL (4.0-10.5)
[2018-03-11 01:18] LABS: INTERNATIONAL RATION (INR) 1.11; PROTHROMBIN TIME 14.8 SEC (11.4-15.4)
--- NOTE | 2018-03-11 01:25 | RADIOLOGY REPORT (SQ) ---
EXAM DESCRIPTION: XR CHEST 1 VIEW COMPLETED DATE/TME: 03/11/2018 00:48 CLINICAL HISTORY: 77 years Male, SOB COMPARISON: 3.16.18 NUMBER OF VIEWS/TECHNIQUE: 1/AP FINDINGS: Adequate lung volume, prominent interstitium, normal cardiac silhouette, atherosclerosis, and intact bony thorax. IMPRESSION: No acute cardiopulmonary findings.
[2018-03-11 01:27] LABS: ALANINE AMINOTRANSFERASE 17 U/L (21-72); ALBUMIN 4.1 g/dL (3.5-5.0); ALKALINE PHOSPHATASE 106 U/L (38-126); ANION GAP 14 (5-19); ASPARTATE AMINO TRANSFERASE 18 U/L (17-59); BILIRUBIN,DIRECT 0.3 mg/dL (0.0-0.4); BILIRUBIN,TOTAL 0.5 mg/dL (0.2-1.3); BLOOD UREA NITROGEN 15 mg/dL (7-20); CALCIUM 9.2 mg/dL (8.4-10.2); CARBON DIOXIDE 27 mmol/L (22-30); CHLORIDE 103 mmol/L (98-107); CREATINE KINASE 90 U/L (55-170); GLUCOSE 140 mg/dL (75-110); POTASSIUM 3.6 mmol/L (3.6-5.0); SODIUM 144.2 mmol/L (137-145); TOTAL PROTEIN 7.5 g/dL (6.3-8.2)
[2018-03-11 01:39] LABS: CREATINE KINASE MB 1.58 ng/mL (<4.55)
[2018-03-11] MEDS ORDERED: IPRATROPIUM/ALBUTEROL 0.5-2.5 MG/3 ML AMPUL NEB ONE (01:41)
[2018-03-11 01:42] LABS: TROPONIN I 0.047 ng/mL
[2018-03-11 02:18] LABS: APPEARANCE,URINE SLIGHTLY-CLOUDY; BILIRUBIN,URINE NEGATIVE (NEGATIVE); CALCIUM OXALATE CRYSTALS,URINE FEW /HPF; COLOR,URINE YELLOW; GLUCOSE, URINE NEGATIVE (NEGATIVE); KETONES,URINE NEGATIVE (NEGATIVE); LEUKOCYTE ESTERASE,URINE TRACE (NEGATIVE); NITRITE,URINE NEGATIVE (NEGATIVE); PROTEIN,URINE NEGATIVE (NEGATIVE); URINE SPECIFIC GRAVITY 1.026
[2018-03-11] MEDS ORDERED: ONDANSETRON ODT 4 MG TAB (6 TAB/ER DISP) PO PRN (03:49)
[2018-03-11 04:39] VITALS: BP 142/72
--- NOTE | 2018-03-11 18:17 | EKG REPORT ---
SEVERITY:- ABNORMAL ECG - SINUS RHYTHM LEFT ANTERIOR FASCICULAR BLOCK PROBABLE POSTERIOR INFARCT : Confirmed by: Bijal Loza 11-Mar-2018 18:16:46
== END 2018-03-11 04:38 | disposition home or self-care (01) ==
LOC: ER 00:43
DX: R11.2 Nausea with vomiting, unspecified (principal); J44.9 Chronic obstructive pulmonary disease, unspecified; R10.9 Unspecified abdominal pain; E11.9 Type 2 diabetes mellitus without complications; Z86.73 Personal history of transient ischemic attack (TIA), and cerebral infarction without residual deficits
CPT/HCPCS: 93005; 94640; 99285; 36415; 82553; 82550; 85025; 85610; 80053; 81001; 84484; 71045; 93010; A9270; J7620

== ENCOUNTER 2019-07-16 09:34 | Inpatient (IN) | payer MEDICARE, MEDICAID ==
[2019-07-16 11:38] LABS: VENOUS BLOOD BASE EXCESS 1.8 mmol/L; VENOUS BLOOD HCO3 26.3 mmol/L (20-32); VENOUS BLOOD PH 7.43 (7.30-7.42)
[2019-07-16] MEDS ORDERED: ALBUTEROL SULFATE 0.083% NEB 2.5 MG/3 ML AMPUL NEB ONE (11:38)
[2019-07-16 11:43] LABS: ALBUMIN 4.1 g/dL (3.5-5.0); ALKALINE PHOSPHATASE 110 U/L (38-126); ANION GAP 12 (5-19); ASPARTATE AMINO TRANSFERASE 27 U/L (17-59); BILIRUBIN,DIRECT 0.2 mg/dL (0.0-0.4); BILIRUBIN,TOTAL 1.2 mg/dL (0.2-1.3); BLOOD UREA NITROGEN 14 mg/dL (7-20); CALCIUM 9.2 mg/dL (8.4-10.2); CARBON DIOXIDE 27 mmol/L (22-30); CHLORIDE 100 mmol/L (98-107); GLUCOSE 197 mg/dL (75-110); POTASSIUM 3.7 mmol/L (3.6-5.0); TOTAL PROTEIN 7.5 g/dL (6.3-8.2)
[2019-07-16 11:44] LABS: INTERNATIONAL RATION (INR) 1.27; PROTHROMBIN TIME 15.9 SEC (11.4-15.4)
[2019-07-16 11:46] LABS: HEMATOCRIT 37.2 % (37.9-51.0); HEMOGLOBIN 12.5 g/dL (13.5-17.0); MEAN CORPUSCULAR HEMOGLOBIN 29.5 pg (27.0-33.4); MEAN CORPUSCULAR HGB CONC 33.6 g/dL (32.0-36.0); MEAN CORPUSCULAR VOLUME 88 fl (80-97); PLATELET COUNT 159 10^3/uL (150-450); RED BLOOD COUNT 4.24 10^6/uL (4.35-5.55); RED CELL DISTRIBUTION WIDTH 15.1 % (11.5-14.0); WHITE BLOOD COUNT 11.7 10^3/uL (4.0-10.5)
--- NOTE | 2019-07-16 11:47 | RADIOLOGY REPORT (SQ) ---
EXAM DESCRIPTION: CHEST 2 VIEWS COMPLETED DATE/TIME: 07/16/2019 11:27 am REASON FOR STUDY: diminished breath sounds COMPARISON: 03/11/2018 EXAM PARAMETERS: NUMBER OF VIEWS: two views TECHNIQUE: Digital Frontal and Lateral radiographic views of the chest acquired. RADIATION DOSE: NA LIMITATIONS: none FINDINGS: LUNGS AND PLEURA: Airspace disease right upper lobe. There is a background of COPD. No e ffusions. MEDIASTINUM AND HILAR STRUCTURES: No masses or contour abnormalities. HEART AND VASCULAR STRUCTURES: Stable heart size. No evidence for failure. BONES: No acute findings. HARDWARE: None in the chest. OTHER: No other significant finding. IMPRESSION: Right upper lobe pneumonia. TECHNICAL DOCUMENTATION: JOB ID: [id number] [employer]- All Rights Reserved Reading location - IP/workstation name: [email or web address]
[2019-07-16] MEDS ORDERED: IPRATROPIUM/ALBUTEROL 0.5-2.5 MG/3 ML AMPUL NEB ONE (11:59)
--- NOTE | 2019-07-16 12:04 | EKG REPORT ---
SEVERITY:- ABNORMAL ECG - SINUS TACHYCARDIA ATRIAL PREMATURE COMPLEX NONSPECIFIC IVCD WITH LAD (ATYPICAL LBBB) : Confirmed by: Alisha Green MD 16-Jul-2019 12:03:17
--- NOTE | 2019-07-16 12:10 | ER Document Report ---
ED General - General Chief Complaint: Shortness Of Breath Stated Complaint: SHORTNESS OF BREATH Time Seen by Provider: 07/16/19 11:36 Primary Care Provider: JESSI BETTS PA-C [Primary Care Provider] - Follow up as needed Notes: 79-year-old male presents emergency department complaining of shortness of breath and increasing dyspnea on exertion for the past 3 days, this is associated with a productive cough that only hurts when he coughs. It is also associated with rhinorrhea and 3 pillow orthopnea. He is on oxygen 2 L via nasal cannula on a daily basis. Admits to history of COPD and CHF. EMS gave 125 mg of Solu-Medrol and 1 DuoNeb treatment. Patient was apparently 82% on room air when they picked him up. TRAVEL OUTSIDE OF THE [place] IN LAST 30 DAYS: No - Related Data Allergies/Adverse Reactions: No Known Allergies Allergy (Verified 10/22/17 21:00) Past Medical History - General Information source: Patient - Social History Smoking Status: Former Smoker Chew tobacco use (# tins/day): No Frequency of alcohol use: None Drug Abuse: None Family History: COPD Patient has suicidal ideation: No Patient has homicidal ideation: No - Past Medical History Cardiac Medical History: Reports: Hx Atrial Fibrillation, Hx Congestive Heart Failure, Hx Hypertension Denies: Hx Heart Attack Pulmonary Medical History: Reports: Hx Asthma, Hx COPD Neurological Medical History: Reports: Hx Cerebrovascular Accident. Denies: Hx Seizures Endocrine Medical History: Reports: Hx Diabetes Mellitus Type 2 Renal/ Medical History: Denies: Hx Peritoneal Dialysis GI Medical History: Denies: Hx Hepatitis, Hx Hiatal Hernia, Hx Ulcer Musculoskeletal Medical History: Reports Hx Arthritis Infectious Medical History: Denies: Hx Hepatitis Past Surgical History: Reports: Hx Herniorrhaphy. Denies: Hx Open Heart Surgery, Hx Pacemaker - Immunizations Hx Diphtheria, Pertussis, Tetanus Vaccination: Yes Review of Systems - Review of Systems Constitutional: No symptoms reported EENT: See HPI, Nose congestion Cardiovascular: See HPI, Dyspnea Respiratory: See HPI Gastrointestinal: No symptoms reported -: Yes All other systems reviewed and negative Physical Exam - Vital signs Vitals: Temp Pulse Resp BP Pulse Ox 97.8 F 105 H 22 H 133/74 H 93 07/16/19 09:34 07/16/19 09:34 07/16/19 09:34 07/16/19 09:34 07/16/19 09:34 Interpretation: Tachycardic - Notes Notes: GENERAL: Alert, interacts well. Frequent wet cough, appears short of breath. HEAD: Normocephalic, atraumatic EYES: Pupils equal, round and reactive to light, extraocular movements intact. ENT: Oral mucosa moist, tongue midline. NECK: Full range of motion, supple, trachea midline. LUNGS: Diffuse expiratory wheezing, some inspiratory rales, tachypneic, appears moderately short of breath. HEART: Tachycardic rate and rhythm, no murmurs, gallops, rubs. ABDOMEN: Soft, nontender, nondistended, bowel sounds present in all 4 quadrants. EXTREMITIES: Moves all 4 extremities spontaneously, is pretibial edema, radial and dorsalis pedis pulses 2/4 bilaterally. No cyanosis. NEUROLOGICAL: Alert and oriented x3, normal speech. PSYCH: Normal mood, normal affect. SKIN: Warm, Dry, normal turgor, no rashes or lesions noted. Course - Re-evaluation Re-evalutation: 07/16/19 13:31 Patient is stable on his usual 2 L via nasal cannula, improving with breathing treatments, physical exam is consistent with both COPD and CHF, CBC shows slight leukocytosis at 11.7 with mild anemia at 12.5, platelets normal, INR slightly prolonged at 1.27, venous blood gas shows slight acidosis with pH of 7.43, CMP unremarkable except for slight hyperglycemia, lactic acid normal at 1.8, troponin indeterminate 0.079, proBNP elevated at 5490, Lasix has been given, flu swabs are negative, chest x-ray per radiology shows right upper lobe pneumonia, I also should think it shows cephalization and some fluid in the fissure on the right-hand side. Discussed patient with Dr. Barahona who agrees to accept the patient to his service, pneumonia has been rated with Rocephin and azithromycin. - Vital Signs Vital signs: Temp Pulse Resp BP Pulse Ox 97.8 F 105 H 19 145/73 H 93 07/16/19 09:34 07/16/19 09:34 07/16/19 12:00 07/16/19 12:00 07/16/19 12:00 - Laboratory Result Diagrams: 07/16/19 10:30 07/16/19 10:30 Laboratory results interpreted by me: 07/16/19 07/16/19 07/16/19 10:30 10:30 10:30 WBC 11.7 H RBC 4.24 L Hgb 12.5 L Hct 37.2 L RDW 15.1 H Seg Neuts % (Manual) 92 H Lymphocytes % (Manual) 5 L Abs Neuts (Manual) 10.8 H PT 15.9 H VBG pH Glucose 197 H NT-Pro-B Natriuret Pep 07/16/19 07/16/19 10:30 11:28 WBC RBC Hgb Hct RDW Seg Neuts % (Manual) Lymphocytes % (Manual) Abs Neuts (Manual) PT VBG pH 7.43 H Glucose NT-Pro-B Natriuret Pep 5490 H - EKG Interpretation by Me Additional EKG results interpreted by me: 07/16/19 13:32 EKG shows sinus tachycardia at a rate of 101, left anterior hemiblock, PACs, no ST segment elevations or depressions per my interpretation. Critical Care Note - Critical Care Note Total time excluding time spent on procedures (mins): 36 Discharge - Discharge Clinical Impression: Acute exacerbation of chronic obstructive pulmonary disease Right upper lobe pneumonia Qualifiers: Pneumonia type: due to unspecified organism Qualified Code(s): J18.9 - Pneumonia, unspecified organism Congestive heart failure Qualifiers: Heart failure type: unspecified Heart failure chronicity: acute Qualified Code(s): I50.9 - Heart failure, unspecified Condition: Fair Disposition: ADMITTED INPATIENT Admitting Provider: [place] (Hospitalist) Unit Admitted: Telemetry Referrals: JESSI BETTS PA-C [Primary Care Provider] - Follow up as needed
[2019-07-16 12:19] LABS: ABSOLUTE LYMPHOCYTES# (MANUAL) 0.6 10^3/uL (0.5-4.7); ABSOLUTE MONOCYTES # (MANUAL) 0.4 10^3/uL (0.1-1.4); BASOPHILS % (MANUAL) 0 % (0-2); EOSINOPHILS % (MANUAL) 0 % (0-6); LYMPHOCYTES % (MANUAL) 5 % (13-45); MONOCYTES % (MANUAL) 3 % (3-13); SEGMENTED NEUTROPHILS % (MAN) 92 % (42-78); TOTAL CELLS COUNTED 100
[2019-07-16 12:20] LABS: ANISOCYTOSIS SLIGHT
[2019-07-16 12:21] LABS: PLATELET COMMENT ADEQUATE; PLATELET LARGE PRESENT
[2019-07-16 13:00] LABS: A TYPE INFLUENZA AG NEGATIVE (NEGATIVE); B INFLUENZA AG NEGATIVE (NEGATIVE)
[2019-07-16] MEDS ORDERED: CEFTRIAXONE 1 GM/D5W RTU 1 GM/50 ML RTUPB IV ONE (13:18)
[2019-07-16] MEDS ORDERED: AZITHROMYCIN INJ 500 MG VIAL IV ONE ×2 (13:18→15:33)
[2019-07-16] MEDS ORDERED: FUROSEMIDE INJ/PF 40 MG/4 ML SDV IV ONE (13:25)
[2019-07-16] MEDS ORDERED: GLUCAGON,HUMAN RECOMB 1 MG INJ IM PRN (13:55)
[2019-07-16] MEDS ORDERED: DEXTROSE 50%-WATER 25 GM/50 ML DISP.SYRIN IV PRN ×2 (13:55)
[2019-07-16] MEDS ORDERED: DEXTROSE 40% GEL 15 GM TUBE PO PRN ×2 (13:55)
--- NOTE | 2019-07-16 15:13 | RADIOLOGY REPORT (SQ) ---
EXAM DESCRIPTION: CT CHEST WITHOUT COMPLETED DATE/TIME: 07/16/2019 2:49 pm REASON FOR STUDY: SOB, hypoxia, cough COMPARISON: 03/08/2017 TECHNIQUE: CT scan performed of the chest without intravenous contrast. Images reviewed with lung, soft tissue and bone windows. Reconstructed coronal and sagittal MPR images reviewed. All images st ored on PACS. All CT scanners at this facility use dose modulation, iterative reconstruction, and/or weight based d osing when appropriate to reduce radiation dose to as low as reasonably achievable (ALARA). [facility]: Dose Right [facility]: CareDose [facility]: Dose Right [facility]: Teradose 4D [facility]: Smart Gorsh RADIATION DOSE: CT Rad equipment meets quality standard of care and radiation dose reduction techniq ues were employed. CTDIvol: 10.5 mGy. DLP: 420 mGy-cm. mGy. LIMITATIONS: No technical limitations. FINDINGS: LUNGS AND PLEURA: Patchy areas of reticulonodular infiltrate in both lungs, more extensive in the right upper lobe. No effusions. Chronic bronchiectasis left lower lobe. HILAR AND MEDIASTINAL STRUCTURES: No identified masses or abnormal nodes. No obvious aneurysm. HEART AND VASCULAR STRUCTURES: No aneurysm. No pericardial effusion. UPPER ABDOMEN: No significant findings. Limited exam. THYROID AND OTHER SOFT TISSUES: No masses. No adenopathy. BONES: No significant finding. HARDWARE: None in the chest. OTHER: No other significant findings. IMPRESSION: Chronic interstitial lung disease. Reticulonodular infiltrate which is nonspecific, but most likely infectious etiology. TECHNICAL DOCUMENTATION: JOB ID: [id number] Quality ID # [id number]: Final reports with documentation of one or more dose reduction techniques (e.g., Au tomated exposure control, adjustment of the mA and/or kV according to patient size, use of iterative reconstruction technique) 2010 [employer]- All Rights Reserved Reading location - IP/workstation name: [email or web address]
[2019-07-16] MEDS: IPRATROPIUM/ALBUTEROL 0.5-2.5 MG/3 ML AMPUL NEB SCH ×2 (15:28→19:49)
--- NOTE | 2019-07-16 17:12 | ADVANCED CARE ---
- Diagnosis (1) Acute and chronic respiratory failure with hypoxia Diagnosis Current: Yes (2) Acute exacerbation of chronic obstructive pulmonary disease Diagnosis Current: Yes (3) Congestive heart failure Diagnosis Current: Yes (4) Right upper lobe pneumonia Diagnosis Current: Yes (5) Atrial fibrillation Diagnosis Current: Yes (6) COPD (chronic obstructive pulmonary disease) Diagnosis Current: Yes (7) Essential hypertension Diagnosis Current: Yes (8) Coronary artery disease Diagnosis Current: Yes (9) Type 2 diabetes mellitus Diagnosis Current: Yes Resuscitation Status: Full Code Discussion: Discussed with patient with son and brand planner at the bedside. He says that he is a full code and prefers to receive chest compressions, defibrillation or mechanical ventilation if the need arises. He says that his son, Yunior Wiggins is his surrogate medical decision maker.
--- NOTE | 2019-07-16 17:12 | PDOC H&P ---
History of Present Illness Admission Date/PCP: 07/16/19 13:40 JESSI BETTS Patient complains of: cough, SOB History of Present Illness: HAWA YANG is a 79 year old male with a past medical history of COPD on 2 L of nasal cannula, CAD, paroxysmal atrial fibrillation on Eliquis, diabetes mellitus type 2, chronic systolic heart failure with EF of 35 to 40% (Dr. Loza's patient), and hypertension who presented with cough and increasing shortness of breath. Patient has chronic shortness of breath from his COPD. However he is been having progressive shortness of breath associated with productive cough with yellowish sputum in the past 3 days. He reported chills but no fever. Denies recent sick contacts. He denies pedal edema. Reportedly, his O2 sat dropped down to 82% of supplementary O2 when he was being transported by EMS in route. In the ER, he has mild leukocytosis, elevated BNP and a possible right upper lobe pneumonia read on chest x-ray. Past Medical History Cardiac Medical History: Reports: Atrial Fibrillation, Congestive Heart Failure, Hypertension Denies: Myocardial Infarction Pulmonary Medical History: Reports: Asthma, Chronic Obstructive Pulmonary Disease (COPD) Neurological Medical History: Denies: Seizures Endocrine Medical History: Reports: Diabetes Mellitus Type 2 GI Medical History: Denies: Hepatitis, Hiatal Hernia Musculoskeltal Medical History: Reports: Arthritis Hematology: Reports: Anemia - NOW ON IRON PILLS Denies: Sickle Cell Disease Past Surgical History Past Surgical History: Reports: Herniorrhaphy Denies: Pacemaker Social History Smoking Status: Former Smoker Electronic Cigarette use?: No Frequency of Alcohol Use: None Hx Recreational Drug Use: No Drugs: None Hx Prescription Drug Abuse: No Family History Family History: COPD Parental Family History Reviewed: Yes - No premature CAD Children Family History Reviewed: No Sibling(s) Family History Reviewed.: No Medication/Allergy Home Medications: Apixaban [Eliquis 5 mg Tablet] 5 mg PO Q12 10/23/17 Digoxin [Lanoxin 0.125 mg Tablet] 0.125 mg PO DAILY 10/23/17 Metoprolol Succinate [Toprol Xl 50 mg Tab.sr] 50 mg PO DAILY 10/23/17 Omeprazole 20 mg PO DAILY 10/23/17 Roflumilast [Daliresp 500 mcg Tablet] 500 mcg PO DAILY 10/23/17 Sertraline HCl [Zoloft] 100 mg PO QHS 10/23/17 Tiotropium [place] [Spiriva Handihaler 18 mcg/dose (30 Dose)] 1 cap PO DAILY 10/23/17 Furosemide [Lasix 40 mg Tablet] 40 mg PO DAILY tablet 10/27/17 Acetylcysteine [NAC 600 mg Capsule] 600 mg PO MEALS 07/16/19 Albuterol Sulfate [Albuterol Sulfate Hfa] 2 puff IH Q6HP PRN 07/16/19 Fluticasone/Salmeterol [Advair 250-50 Diskus 14 Dose/Diskus] 1 inh IH Q12 07/16/19 Glipizide [Glucotrol Xl 5 mg Tab.er] 5 mg PO DAILY 07/16/19 Sacubitril/Valsartan [Entresto 24 mg/26 mg Tablet] 1 tab PO Q12 07/16/19 Allergies/Adverse Reactions: No Known Allergies Allergy (Verified 10/22/17 21:00) Review of Systems All systems: reviewed and no additional remarkable complaints except as stated - As mentioned in HPI Physical Exam Vital Signs: Temp Pulse Resp BP Pulse Ox 97.8 F 105 H 25 H 152/76 H 96 07/16/19 09:34 07/16/19 09:34 07/16/19 13:00 07/16/19 13:00 07/16/19 13:00 Intake & Output 07/15/19 07/16/19 07/17/19 06:59 06:59 06:59 Weight 185 lb General appearance: PRESENT: no acute distress, well-developed, well-nourished Head exam: PRESENT: atraumatic, normocephalic Eye exam: PRESENT: conjunctiva pink, EOMI, PERRLA. ABSENT: scleral icterus Ear exam: PRESENT: normal external ear exam Mouth exam: PRESENT: moist, tongue midline Neck exam: ABSENT: carotid bruit, JVD, lymphadenopathy, thyromegaly Respiratory exam: PRESENT: rales, rhonchi, wheezes Cardiovascular exam: PRESENT: RRR. ABSENT: diastolic murmur, rubs, systolic murmur Pulses: PRESENT: normal dorsalis pedis pul GI/Abdominal exam: PRESENT: normal bowel sounds, soft. ABSENT: distended, guarding, mass, organolmegaly, rebound, tenderness Rectal exam: PRESENT: deferred Neurological exam: PRESENT: alert, awake, oriented to person, oriented to time, CN II-XII grossly intact. ABSENT: motor sensory deficit Results Laboratory Results: 07/16/19 10:30 07/16/19 10:30 07/16/19 07/16/19 07/16/19 10:30 10:30 11:28 WBC 11.7 H RBC 4.24 L Hgb 12.5 L Hct 37.2 L MCV 88 MCH 29.5 MCHC 33.6 RDW 15.1 H Plt Count 159 Seg Neutrophils % Not Reportable VBG pH 7.43 H VBG pCO2 41.0 VBG HCO3 26.3 VBG Base Excess 1.8 Sodium 139.3 Potassium 3.7 Chloride 100 Carbon Dioxide 27 Anion Gap 12 BUN 14 Creatinine 0.95 Est GFR ( Amer) > 60 Glucose 197 H Calcium 9.2 Total Bilirubin 1.2 AST 27 Alkaline Phosphatase 110 Total Protein 7.5 Albumin 4.1 07/16/19 07/16/19 10:30 10:30 Troponin I 0.079 NT-Pro-B Natriuret Pep 5490 H Impressions: Chest X-Ray 07/16/19 10:41 IMPRESSION: Right upper lobe pneumonia. Assessment and Plan - Diagnosis (1) Acute and chronic respiratory failure with hypoxia Is this a current diagnosis for this admission?: Yes (3) Right upper lobe pneumonia Qualifiers: Pneumonia type: due to unspecified organism Qualified Code(s): J18.9 - Pneumonia, unspecified organism Is this a current diagnosis for this admission?: Yes (4) Congestive heart failure Qualifiers: Heart failure type: unspecified Heart failure chronicity: chronic Qualified Code(s): I50.9 - Heart failure, unspecified Is this a current diagnosis for this admission?: Yes (5) Sepsis Is this a current diagnosis for this admission?: Yes Plan: Secondary to pneumonia. (6) Atrial fibrillation Qualifiers: Atrial fibrillation type: unspecified Qualified Code(s): I48.91 - Unspecified atrial fibrillation Is this a current diagnosis for this admission?: Yes (7) Coronary artery disease Qualifiers: Coronary Disease-Associated Artery/Lesion type: unspecified vessel or lesion type [place] vs. transplanted heart: [place] heart Associated angina: angina presence unspecified Qualified Code(s): I25.10 - Atherosclerotic heart disease of [place] coronary artery without angina pectoris Is this a current diagnosis for this admission?: Yes (9) Type 2 diabetes mellitus Qualifiers: Diabetes mellitus halfway insulin use: without halfway use Diabetes mellitus complication status: with unspecified complications Is this a current diagnosis for this admission?: Yes - Time Time Spent with patient: 25-34 minutes
[2019-07-16] MEDS: INSULIN LISPRO 100 UNIT/ML 3 ML VIAL SUBCUT SCH ×2 (17:29→22:37)
[2019-07-16] MEDS ORDERED: METOPROLOL TARTRATE PF/INJ 5 MG/5 ML SDV IV ONE ×2 (19:21→19:40)
[2019-07-16] MEDS: APIXABAN 5 MG TABLET PO SCH (22:38)
[2019-07-16] MEDS: METHYLPREDNISOLONE INJ 40 MG/1 ML SDV IV SCH (22:38)
[2019-07-16] MEDS: METOPROLOL TARTRATE 25 MG TABLET PO SCH (22:38)
[2019-07-17] MEDS: IPRATROPIUM/ALBUTEROL 0.5-2.5 MG/3 ML AMPUL NEB SCH ×4 (02:05→20:55)
[2019-07-17] MEDS ORDERED: NORMAL SALINE 1000 ML 1,000 ML IV PRN (07:55)
[2019-07-17] MEDS: INSULIN LISPRO 100 UNIT/ML 3 ML VIAL SUBCUT SCH ×4 (08:30→21:53)
[2019-07-17] MEDS ORDERED: FUROSEMIDE 40 MG TABLET PO SCH (10:00)
[2019-07-17] MEDS: AZITHROMYCIN 250 MG TABLET PO SCH (10:41)
[2019-07-17] MEDS: METOPROLOL TARTRATE 25 MG TABLET PO SCH (10:41)
[2019-07-17] MEDS: APIXABAN 5 MG TABLET PO SCH ×2 (10:41→22:06)
[2019-07-17] MEDS: METHYLPREDNISOLONE INJ 40 MG/1 ML SDV IV SCH ×2 (10:41→22:06)
[2019-07-17] MEDS: CEFTRIAXONE 1 GM/D5W RTU 1 GM/50 ML RTUPB IV SCH (10:42)
[2019-07-17] MEDS ORDERED: INFLUENZA QUAD (6MOS+) 2019-20 VAC 0.5 ML SYR IM ONE (12:22)
--- NOTE | 2019-07-17 16:10 | PDOC PROGRESS REPORT ---
Subjective Progress Note for:: 07/17/19 Subjective:: HAWA YANG is a 79 year old male with a past medical history of COPD on 2 L of nasal cannula, CAD, paroxysmal atrial fibrillation on Eliquis, diabetes mellitus type 2, chronic systolic heart failure with EF of 35 to 40% (Dr. Loza's patient), and hypertension who presented with cough and increasing shortness of breath. He was admitted for acute on chronic hypoxic respiratory failure and sepsis secondary to pneumonia. He was also treated for COPD exacerbation. He did receive a dose of IV Lasix in the ER. Lactic acid significantly trended up. Lasix was held. Lactic acid this morning normalized. No acute event overnight. Upon encounter this morning, patient still reports of shortness of breath. He says he had temporary relief from the breathing willie tments this morning but had recurrence of shortness of breath when he tried to ambulate towards the bathroom. He denies chest pain. He has significant wheezes and rhonchi on examination. Reason For Visit: ACUTE HYPOXIC RESPIRATORY FAILURE Physical Exam Vital Signs: Temp Pulse Resp BP Pulse Ox 97.8 F 79 18 139/68 H 96 07/17/19 12:00 07/17/19 14:18 07/17/19 14:18 07/17/19 12:00 07/17/19 14:18 Intake & Output 07/16/19 07/17/19 07/18/19 06:59 06:59 06:59 Intake Total 800 956 Output Total 1605 750 Balance -805 206 Weight 181 lb 14.102 oz General appearance: PRESENT: no acute distress, well-developed, well-nourished Head exam: PRESENT: atraumatic, normocephalic Eye exam: PRESENT: conjunctiva pink, EOMI, PERRLA. ABSENT: scleral icterus Ear exam: PRESENT: normal external ear exam Mouth exam: PRESENT: moist, tongue midline Neck exam: ABSENT: carotid bruit, JVD, lymphadenopathy, thyromegaly Respiratory exam: PRESENT: rhonchi, wheezes. ABSENT: rales Cardiovascular exam: PRESENT: RRR. ABSENT: diastolic murmur, rubs, systolic murmur Pulses: PRESENT: normal dorsalis pedis pul GI/Abdominal exam: PRESENT: normal bowel sounds, soft. ABSENT: distended, guarding, mass, organolmegaly, rebound, tenderness Rectal exam: PRESENT: deferred Neurological exam: PRESENT: alert, awake, oriented to person, oriented to place, oriented to time, oriented to situation, CN II-XII grossly intact. ABSENT: motor sensory deficit Results Laboratory Results: 07/16/19 10:30 07/16/19 10:30 07/16/19 07/17/19 21:40 08:25 Lactic Acid 3.5 H 0.7 07/16/19 07/16/19 10:30 10:30 Troponin I 0.079 NT-Pro-B Natriuret Pep 5490 H Impressions: Chest CT 07/16/19 00:00 IMPRESSION: Chronic interstitial lung disease. Reticulonodular infiltrate which is nonspecific, but most likely infectious etiology. Chest X-Ray 07/16/19 10:41 IMPRESSION: Right upper lobe pneumonia. Assessment and Plan - Diagnosis (1) Acute and chronic respiratory failure with hypoxia Is this a current diagnosis for this admission?: Yes Plan: Currently on nasal cannula. BiPAP PRN. (2) Acute exacerbation of chronic obstructive pulmonary disease Is this a current diagnosis for this admission?: Yes Plan: Continue IV steroids and scheduled breathing treatments. Continue antibiotics for pneumonia. (3) Right upper lobe pneumonia Qualifiers: Pneumonia type: due to unspecified organism Qualified Code(s): J18.9 - Pneumonia, unspecified organism Is this a current diagnosis for this admission?: Yes Plan: Continue IV antibiotics. Sputum culture pending. (4) Congestive heart failure Qualifiers: Heart failure type: unspecified Heart failure chronicity: chronic Qualified Code(s): I50.9 - Heart failure, unspecified Is this a current diagnosis for this admission?: Yes Plan: Lasix held yesterday as his lactic acid significantly went down after he was given IV Lasix on presentation. Will resume p.o. regimen now that lactic acid has normalized. (5) Atrial fibrillation Qualifiers: Atrial fibrillation type: unspecified Qualified Code(s): I48.91 - Unspecified atrial fibrillation Is this a current diagnosis for this admission?: Yes Plan: Resume Eliquis and Lanoxin. (6) COPD (chronic obstructive pulmonary disease) Qualifiers: Is this a current diagnosis for this admission?: Yes Plan: Continue treatment for COPD exacerbation. (7) Essential hypertension Is this a current diagnosis for this admission?: Yes (8) Coronary artery disease Qualifiers: Coronary Disease-Associated Artery/Lesion type: unspecified vessel or lesion type [place] vs. transplanted heart: [place] heart Associated angina: angina presence unspecified Qualified Code(s): I25.10 - Atherosclerotic heart disease of [place] coronary artery without angina pectoris Is this a current diagnosis for this admission?: Yes (9) Type 2 diabetes mellitus Qualifiers: Diabetes mellitus mcc insulin use: without mcc use Diabetes mellitus complication status: with unspecified complications Is this a current diagnosis for this admission?: Yes
[2019-07-17] MEDS ORDERED: (PENDING PHARMACY ID) (Acetylcysteine [Nac 600 Mg Capsule] 600 MG) PO SCH (17:00)
[2019-07-17] MEDS ORDERED: APIXABAN 5 MG TABLET PO SCH (22:00)
[2019-07-17] MEDS: SERTRALINE HCL 50 MG TABLET PO SCH (22:06)
[2019-07-17] MEDS: SACUBITRIL/VALSARTAN 24 MG/26 MG TABLET PO SCH (22:06)
[2019-07-18] MEDS: IPRATROPIUM/ALBUTEROL 0.5-2.5 MG/3 ML AMPUL NEB SCH ×4 (02:27→21:09)
[2019-07-18] MEDS: INSULIN LISPRO 100 UNIT/ML 3 ML VIAL SUBCUT SCH ×4 (08:54→21:55)
[2019-07-18] MEDS ORDERED: FUROSEMIDE 40 MG TABLET PO SCH (10:00)
[2019-07-18] MEDS: CEFTRIAXONE 1 GM/D5W RTU 1 GM/50 ML RTUPB IV SCH (10:04)
[2019-07-18] MEDS: METHYLPREDNISOLONE INJ 40 MG/1 ML SDV IV SCH ×2 (10:05→21:55)
[2019-07-18] MEDS: SACUBITRIL/VALSARTAN 24 MG/26 MG TABLET PO SCH ×2 (10:05→21:55)
[2019-07-18] MEDS: FUROSEMIDE 20 MG TABLET PO SCH (10:05)
[2019-07-18] MEDS: METOPROLOL SUCCINATE 50 MG TAB.SR.24H PO SCH (10:05)
[2019-07-18] MEDS: APIXABAN 5 MG TABLET PO SCH ×2 (10:05→21:55)
[2019-07-18] MEDS: DIGOXIN 0.125 MG TABLET PO SCH (10:05)
[2019-07-18] MEDS: AZITHROMYCIN 250 MG TABLET PO SCH (10:05)
[2019-07-18] MEDS: PANTOPRAZOLE SODIUM 20 MG TABLET.DR PO SCH (10:05)
--- NOTE | 2019-07-18 12:35 | PDOC PROGRESS REPORT ---
Subjective Progress Note for:: 07/18/19 Subjective:: HAWA YANG is a 79 year old male with a past medical history of COPD on 2 L of nasal cannula, CAD, paroxysmal atrial fibrillation on Eliquis, diabetes mellitus type 2, chronic systolic heart failure with EF of 35 to 40% (Dr. Loza's patient), and hypertension who presented with cough and increasing shortness of breath. He was admitted for acute on chronic hypoxic respiratory failure and sepsis secondary to pneumonia. He was also treated for COPD exacerbation. He did receive a dose of IV Lasix in the ER. 07/15/2019. No acute events overnight. Patient endorsing some improvement in respiratory symptoms compared to yesterday. Still gets short of breath with minimal exertion. Denies any fever, chills, nausea, vomiting, diarrhea, constipation or any urinary symptoms. Reason For Visit: ACUTE HYPOXIC RESPIRATORY FAILURE Physical Exam Vital Signs: Temp Pulse Resp BP Pulse Ox 97.4 F 85 16 146/98 H 94 07/18/19 04:00 07/18/19 07:31 07/18/19 07:31 07/18/19 04:00 07/18/19 07:31 Intake & Output 07/17/19 07/18/19 07/19/19 06:59 06:59 06:59 Intake Total 800 1656 50 Output Total 1605 1200 Balance -805 456 50 Weight 82.5 kg 73.5 kg General appearance: PRESENT: no acute distress, mild distress, well-developed, well-nourished Respiratory exam: PRESENT: decreased breath sounds, wheezes. ABSENT: rales, rhonchi GI/Abdominal exam: PRESENT: normal bowel sounds, soft. ABSENT: distended, guarding, mass, organolmegaly, rebound, tenderness Neurological exam: PRESENT: alert, awake, oriented to person, oriented to place, oriented to time, oriented to situation, CN II-XII grossly intact. ABSENT: motor sensory deficit Results Laboratory Results: 07/16/19 10:30 07/16/19 10:30 07/17/19 07/18/19 17:21 04:00 Lactic Acid 2.2 H 2.0 07/16/19 07/16/19 10:30 10:30 Troponin I 0.079 NT-Pro-B Natriuret Pep 5490 H Impressions: Chest CT 07/16/19 00:00 IMPRESSION: Chronic interstitial lung disease. Reticulonodular infiltrate which is nonspecific, but most likely infectious etiology. Chest X-Ray 07/16/19 10:41 IMPRESSION: Right upper lobe pneumonia. Assessment and Plan - Diagnosis (1) Right upper lobe pneumonia Qualifiers: Pneumonia type: due to Pneumococcus Qualified Code(s): J13 - Pneumonia due to Streptococcus pneumoniae Is this a current diagnosis for this admission?: Yes Plan: Sputum culture positive for strep pneumo. Pending sensitivity. Day 3 IV antibiotics. Day 3 IV ceftriaxone. Day 3 IV azithromycin. Continue IV antibiotics. Follow-up cultures. (2) Acute exacerbation of chronic obstructive pulmonary disease Is this a current diagnosis for this admission?: Yes Plan: History of COPD. Oxygen dependent. 2 L NC as needed. Acutely exacerbated due to underlying strep pneumonia due to underlying strep pneumo. Continue duo nebs, IV steroids, incentive spirometry, flutter valve, PRN BiPAP, ICS, LABA, LABA. (3) Atrial fibrillation Qualifiers: Atrial fibrillation type: unspecified Qualified Code(s): I48.91 - Unspecified atrial fibrillation Is this a current diagnosis for this admission?: Yes Plan: Rate controlled. Anticoagulated. Home meds are Eliquis 5 mg p.o. twice daily, digoxin 0.125 mg p.o. daily, metoprolol 50 mg p.o. daily. Continue telemetry, restart home meds, outpatient cardiology follow-up. (4) Coronary artery disease Qualifiers: Coronary Disease-Associated Artery/Lesion type: unspecified vessel or lesion type [place] vs. transplanted heart: [place] heart Associated angina: angina presence unspecified Qualified Code(s): I25.10 - Atherosclerotic heart disease of [place] coronary artery without angina pectoris Is this a current diagnosis for this admission?: Yes Plan: Denies any anginal symptoms. Presentation Specialist Dr. Loza. Home meds are Toprol-XL 50 mg p.o. daily, Entresto p.o. daily. Restart home meds. Outpatient PCP and cardiology follow-up. (5) Essential hypertension Is this a current diagnosis for this admission?: Yes Plan: Euvolemic. Normotensive. Restart home meds.
[2019-07-18] MEDS: SERTRALINE HCL 50 MG TABLET PO SCH (21:55)
[2019-07-19] MEDS: IPRATROPIUM/ALBUTEROL 0.5-2.5 MG/3 ML AMPUL NEB SCH ×4 (02:24→20:27)
[2019-07-19 05:05] LABS: ABSOLUTE LYMPHOCYTES (AUTO) 0.5 10^3/uL (0.5-4.7); ABSOLUTE MONOCYTES (AUTO) 0.6 10^3/uL (0.1-1.4); ABSOLUTE NEUT (AUTO) 8.8 10^3/uL (1.7-8.2); HEMATOCRIT 38.7 % (37.9-51.0); HEMOGLOBIN 12.9 g/dL (13.5-17.0); LYMPHOCYTES % (AUTO) 5.4 % (13-45); MEAN CORPUSCULAR HEMOGLOBIN 29.7 pg (27.0-33.4); MEAN CORPUSCULAR HGB CONC 33.3 g/dL (32.0-36.0); MEAN CORPUSCULAR VOLUME 89 fl (80-97); MONOCYTES % (AUTO) 6.5 % (3-13); PLATELET COUNT 214 10^3/uL (150-450); RED BLOOD COUNT 4.34 10^6/uL (4.35-5.55); RED CELL DISTRIBUTION WIDTH 15.3 % (11.5-14.0); SEGMENTED NEUTROPHILS % (AUTO) 88.1 % (42-78); TOTAL CELLS COUNTED % (AUTO) 100 %
[2019-07-19 05:45] LABS: ALBUMIN 3.6 g/dL (3.5-5.0); ALKALINE PHOSPHATASE 78 U/L (38-126); ANION GAP 12 (5-19); ASPARTATE AMINO TRANSFERASE 29 U/L (17-59); BILIRUBIN,DIRECT 0.2 mg/dL (0.0-0.4); BILIRUBIN,TOTAL 0.5 mg/dL (0.2-1.3); BLOOD UREA NITROGEN 32 mg/dL (7-20); CALCIUM 9.7 mg/dL (8.4-10.2); CARBON DIOXIDE 31 mmol/L (22-30); CHLORIDE 97 mmol/L (98-107); GLUCOSE 175 mg/dL (75-110); POTASSIUM 4.5 mmol/L (3.6-5.0)
[2019-07-19] MEDS: INSULIN LISPRO 100 UNIT/ML 3 ML VIAL SUBCUT SCH ×4 (08:30→21:45)
[2019-07-19] MEDS: METHYLPREDNISOLONE INJ 40 MG/1 ML SDV IV SCH ×2 (09:51→21:45)
[2019-07-19] MEDS: CEFTRIAXONE 1 GM/D5W RTU 1 GM/50 ML RTUPB IV SCH (09:51)
[2019-07-19] MEDS: PANTOPRAZOLE SODIUM 20 MG TABLET.DR PO SCH (09:52)
[2019-07-19] MEDS: FUROSEMIDE 20 MG TABLET PO SCH (09:52)
[2019-07-19] MEDS: METOPROLOL SUCCINATE 50 MG TAB.SR.24H PO SCH (09:53)
[2019-07-19] MEDS: APIXABAN 5 MG TABLET PO SCH ×2 (09:53→21:46)
[2019-07-19] MEDS: DIGOXIN 0.125 MG TABLET PO SCH (09:53)
[2019-07-19] MEDS: AZITHROMYCIN 250 MG TABLET PO SCH (09:53)
[2019-07-19] MEDS: SACUBITRIL/VALSARTAN 24 MG/26 MG TABLET PO SCH ×2 (09:55→21:46)
--- NOTE | 2019-07-19 13:38 | PDOC PROGRESS REPORT ---
Subjective Progress Note for:: 07/19/19 Subjective:: HAWA YANG is a 79 year old male with a past medical history of COPD on 2 L of nasal cannula, CAD, paroxysmal atrial fibrillation on Eliquis, diabetes mellitus type 2, chronic systolic heart failure with EF of 35 to 40% (Dr. Loza's patient), and hypertension who presented with cough and increasing shortness of breath. He was admitted for acute on chronic hypoxic respiratory failure and sepsis secondary to pneumonia. He was also treated for COPD exacerbation. He did receive a dose of IV Lasix in the ER. 07/18/2019. No acute events overnight. Patient endorsing some improvement in respiratory symptoms compared to yesterday. Still gets short of breath with minimal exertion. Denies any fever, chills, nausea, vomiting, diarrhea, constipation or any urinary symptoms. 07/19/2018. No acute events overnight. Still having significant wheezing on physical examination. Possible DC home tomorrow. Reason For Visit: ACUTE HYPOXIC RESPIRATORY FAILURE Physical Exam Vital Signs: Temp Pulse Resp BP Pulse Ox 97.3 F 67 19 116/54 L 97 07/19/19 11:13 07/19/19 11:13 07/19/19 11:13 07/19/19 11:13 07/19/19 11:13 Intake & Output 07/18/19 07/19/19 07/20/19 06:59 06:59 06:59 Intake Total 1656 1660 50 Output Total 1200 1450 Balance 456 210 50 Weight 73.5 kg 74.2 kg General appearance: PRESENT: no acute distress, well-developed, well-nourished Respiratory exam: PRESENT: prolonged expiratory phas, wheezes. ABSENT: rales, rhonchi GI/Abdominal exam: PRESENT: normal bowel sounds, soft. ABSENT: distended, guarding, mass, organolmegaly, rebound, tenderness Extremities exam: PRESENT: full ROM. ABSENT: calf tenderness, clubbing, pedal edema Neurological exam: PRESENT: alert, awake, oriented to person, oriented to place, oriented to time, oriented to situation, CN II-XII grossly intact. ABSENT: motor sensory deficit Results Laboratory Results: 07/19/19 04:45 07/19/19 04:45 07/19/19 07/19/19 04:45 04:45 WBC 10.0 RBC 4.34 L Hgb 12.9 L Hct 38.7 MCV 89 MCH 29.7 MCHC 33.3 RDW 15.3 H Plt Count 214 Seg Neutrophils % 88.1 H Sodium 140.4 Potassium 4.5 Chloride 97 L Carbon Dioxide 31 H Anion Gap 12 BUN 32 H Creatinine 1.17 Est GFR ( Amer) > 60 Glucose 175 H Calcium 9.7 Magnesium 2.4 H Total Bilirubin 0.5 AST 29 Alkaline Phosphatase 78 Total Protein 7.0 Albumin 3.6 07/16/19 07/16/19 10:30 10:30 Troponin I 0.079 NT-Pro-B Natriuret Pep 5490 H Impressions: Chest CT 07/16/19 00:00 IMPRESSION: Chronic interstitial lung disease. Reticulonodular infiltrate which is nonspecific, but most likely infectious etiology. Chest X-Ray 07/16/19 10:41 IMPRESSION: Right upper lobe pneumonia. Assessment and Plan - Diagnosis (1) Right upper lobe pneumonia Qualifiers: Pneumonia type: due to Pneumococcus Qualified Code(s): J13 - Pneumonia due to Streptococcus pneumoniae Is this a current diagnosis for this admission?: Yes Plan: Sputum culture positive for strep pneumo. Pending sensitivity. Day 4 IV antibiotics. Day 4 IV ceftriaxone. Day 4 IV azithromycin. Continue ceftriaxone. DC azithromycin. Follow-up cultures. (2) Acute exacerbation of chronic obstructive pulmonary disease Is this a current diagnosis for this admission?: Yes Plan: History of COPD. Oxygen dependent. 2 L NC as needed. Acutely exacerbated due to underlying strep pneumonia due to underlying strep pneumo. Continue duo nebs, IV steroids, incentive spirometry, flutter valve, PRN BiPAP, ICS, LABA, LABA. (3) Atrial fibrillation Qualifiers: Atrial fibrillation type: unspecified Qualified Code(s): I48.91 - Unspecified atrial fibrillation Is this a current diagnosis for this admission?: Yes Plan: Rate controlled. Anticoagulated. Home meds are Eliquis 5 mg p.o. twice daily, digoxin 0.125 mg p.o. daily, metoprolol 50 mg p.o. daily. Continue telemetry, restart home meds, outpatient cardiology follow-up. (4) Coronary artery disease Qualifiers: Coronary Disease-Associated Artery/Lesion type: unspecified vessel or lesion type [place] vs. transplanted heart: [place] heart Associated angina: angina presence unspecified Qualified Code(s): I25.10 - Atherosclerotic heart disease of [place] coronary artery without angina pectoris Is this a current diagnosis for this admission?: Yes Plan: Denies any anginal symptoms. Sap Architect Dr. Loza. Home meds are Toprol-XL 50 mg p.o. daily, Entresto p.o. daily. Restart home meds. Outpatient PCP and cardiology follow-up. (5) Essential hypertension Is this a current diagnosis for this admission?: Yes Plan: Euvolemic. Normotensive. Restart home meds.
[2019-07-19] MEDS: SERTRALINE HCL 50 MG TABLET PO SCH (21:46)
[2019-07-20] MEDS: IPRATROPIUM/ALBUTEROL 0.5-2.5 MG/3 ML AMPUL NEB SCH ×3 (02:06→13:47)
[2019-07-20] MEDS: INSULIN LISPRO 100 UNIT/ML 3 ML VIAL SUBCUT SCH ×3 (08:55→17:38)
[2019-07-20] MEDS: METOPROLOL SUCCINATE 50 MG TAB.SR.24H PO SCH (10:04)
[2019-07-20] MEDS: METHYLPREDNISOLONE INJ 40 MG/1 ML SDV IV SCH (10:04)
[2019-07-20] MEDS: FUROSEMIDE 20 MG TABLET PO SCH (10:04)
[2019-07-20] MEDS: PANTOPRAZOLE SODIUM 20 MG TABLET.DR PO SCH (10:04)
[2019-07-20] MEDS: APIXABAN 5 MG TABLET PO SCH (10:04)
[2019-07-20] MEDS: DIGOXIN 0.125 MG TABLET PO SCH (10:04)
[2019-07-20] MEDS: CEFTRIAXONE 1 GM/D5W RTU 1 GM/50 ML RTUPB IV SCH (10:09)
[2019-07-20] MEDS: SACUBITRIL/VALSARTAN 24 MG/26 MG TABLET PO SCH (10:20)
[2019-07-20 17:29] VITALS: BP 139/62
--- NOTE | 2019-07-20 17:33 | PDOC DISCHARGE SUMMARY ---
Impression - Admit/DC Date/PCP Admission Date/Primary Care Provider: 07/16/19 13:40 JESSI BETTS Discharge Date: 07/20/19 - Discharge Diagnosis (1) Right upper lobe pneumonia Is this a current diagnosis for this admission?: Yes (2) Acute exacerbation of chronic obstructive pulmonary disease Is this a current diagnosis for this admission?: Yes (3) Atrial fibrillation Is this a current diagnosis for this admission?: Yes (4) Coronary artery disease Is this a current diagnosis for this admission?: Yes (5) Essential hypertension Is this a current diagnosis for this admission?: Yes (6) Acute and chronic respiratory failure ([id number]) Is this a current diagnosis for this admission?: Yes - Additional Information Resuscitation Status: Full Code Discharge Diet: Cardiac, Diabetic Discharge Activity: Activity As Tolerated, Balance Activity w/Rest, Weigh Daily Referrals: MARCELO GIORDANO MD [COMMUNITY BASED STAFF] - 07/25/19 3:00 pm Prescriptions: Levofloxacin [Levaquin] 500 mg PO DAILY 5 Days #5 tablet Prednisone 50 mg PO DAILY 5 Days #5 tablet Home Medications: Apixaban [Eliquis 5 mg Tablet] 5 mg PO Q12 10/23/17 Digoxin [Lanoxin 0.125 mg Tablet] 0.125 mg PO DAILY 10/23/17 Metoprolol Succinate [Toprol Xl 50 mg Tab.sr] 50 mg PO DAILY 10/23/17 Omeprazole 20 mg PO DAILY 10/23/17 Roflumilast [Daliresp 500 mcg Tablet] 500 mcg PO DAILY 10/23/17 Sertraline HCl [Zoloft] 100 mg PO QHS 10/23/17 Tiotropium [place] [Spiriva Handihaler 18 mcg/dose (30 Dose)] 1 cap PO DAILY 10/23/17 Furosemide [Lasix 40 mg Tablet] 40 mg PO DAILY tablet 10/27/17 Acetylcysteine [NAC 600 mg Capsule] 600 mg PO MEALS 07/16/19 Albuterol Sulfate [Albuterol Sulfate Hfa] 2 puff IH Q6HP PRN 07/16/19 Fluticasone/Salmeterol [Advair 250-50 Diskus 14 Dose/Diskus] 1 inh IH Q12 07/16/19 Glipizide [Glucotrol Xl 5 mg Tab.er] 5 mg PO DAILY 07/16/19 Sacubitril/Valsartan [Entresto 24 mg/26 mg Tablet] 1 tab PO Q12 07/16/19 Levofloxacin [Levaquin] 500 mg PO DAILY 5 Days #5 tablet 07/20/19 Prednisone 50 mg PO DAILY 5 Days #5 tablet 07/20/19 History of Present Illiness History of Present Illness: HAWA YANG is a 79 year old male with a past medical history of COPD on 2 L of nasal cannula, CAD, paroxysmal atrial fibrillation on Eliquis, diabetes mellitus type 2, chronic systolic heart failure with EF of 35 to 40% (Dr. Loza's patient), and hypertension who presented with cough and increasing shortness of breath. He was admitted for acute on chronic hypoxic respiratory failure and sepsis secondary to pneumonia. He was also treated for COPD exacerbation. He did receive a dose of IV Lasix in the ER. Hospital Course Hospital Course: (1) Right upper lobe pneumonia Sputum culture positive for strep pneumo. Pansensitive. Received 5 days of IV antibiotics. Received 5 days of IV ceftriaxone. Received 4 days of IV azithromycin. Discharged on levofloxacin 500 mg for another 5 days. Afebrile. WBC WNL. SPO2 WNL on 2 L. All other cultures remain negative. (2) Acute exacerbation of chronic obstructive pulmonary disease History of COPD. Oxygen dependent. 2 L NC as needed. Acutely exacerbated due to underlying strep pneumonia due to underlying strep pneumo. Was a started on duo nebs, IV steroids, incentive spirometry, flutter valve, PRN BiPAP, ICS, LABA, LABA. Discharged to restart home meds and p.o. steroids for another 5 days. Advised to follow-up with PCP and assistant store manager sales. (3) Atrial fibrillation Rate controlled. Anticoagulated. Home meds are Eliquis 5 mg p.o. twice daily, digoxin 0.125 mg p.o. daily, metoprolol 50 mg p.o. daily. Admitted to telemetry, restarted home meds. (4) Coronary artery disease Denied any anginal symptoms. Cash Reconciliation Specialist Dr. Loza. Home meds are Toprol-XL 50 mg p.o. daily, Entresto p.o. daily. Restarted home meds. Outpatient PCP and cardiology follow-up. Advised to restart home meds upon discharge. (5) Essential hypertension Euvolemic. Normotensive. Restarted on home meds. (6) Acute and chronic respiratory failure ([id number]) as per #2 Physical Exam Vital Signs: Temp Pulse Resp BP Pulse Ox 97.4 F 63 18 146/98 H 97 07/20/19 17:25 07/20/19 17:25 07/20/19 17:25 07/20/19 17:25 07/20/19 17:25 Intake & Output 07/19/19 07/20/19 07/21/19 06:59 06:59 06:59 Intake Total 1660 1663 360 Output Total 1450 1410 475 Balance 210 253 -115 Weight 74.2 kg 71.7 kg General appearance: PRESENT: no acute distress, well-developed, well-nourished Respiratory exam: PRESENT: clear to auscultation laure, wheezes - Mild expiratory wheezes.. ABSENT: rales, rhonchi Cardiovascular exam: PRESENT: RRR. ABSENT: diastolic murmur, rubs, systolic murmur GI/Abdominal exam: PRESENT: normal bowel sounds, soft. ABSENT: distended, guarding, mass, organolmegaly, rebound, tenderness Neurological exam: PRESENT: alert, awake, oriented to person, oriented to place, oriented to time, oriented to situation, CN II-XII grossly intact. ABSENT: motor sensory deficit Results Laboratory Results: WBC 10.0 10^3/uL (4.0-10.5) 07/19/19 04:45 RBC 4.34 10^6/uL (4.35-5.55) L 07/19/19 04:45 Hgb 12.9 g/dL (13.5-17.0) L 07/19/19 04:45 Hct 38.7 % (37.9-51.0) 07/19/19 04:45 MCV 89 fl (80-97) 07/19/19 04:45 MCH 29.7 pg (27.0-33.4) 07/19/19 04:45 MCHC 33.3 g/dL (32.0-36.0) 07/19/19 04:45 RDW 15.3 % (11.5-14.0) H 07/19/19 04:45 Plt Count 214 10^3/uL (150-450) 07/19/19 04:45 Lymph % (Auto) 5.4 % (13-45) L 07/19/19 04:45 [place] % (Auto) 6.5 % (3-13) 07/19/19 04:45 Eos % (Auto) 0.0 % (0-6) 07/19/19 04:45 Baso % (Auto) 0.0 % (0-2) 07/19/19 04:45 Absolute Neuts (auto) 8.8 10^3/uL (1.7-8.2) H 07/19/19 04:45 Absolute Lymphs (auto) 0.5 10^3/uL (0.5-4.7) 07/19/19 04:45 Absolute Monos (auto) 0.6 10^3/uL (0.1-1.4) 07/19/19 04:45 Absolute Eos (auto) 0.0 10^3/uL (0.0-0.6) 07/19/19 04:45 Absolute Basos (auto) 0.0 10^3/uL (0.0-0.2) 07/19/19 04:45 Total Counted 100 07/16/19 10:30 Seg Neutrophils % 88.1 % (42-78) H 07/19/19 04:45 Seg Neuts % (Manual) 92 % (42-78) H 07/16/19 10:30 Lymphocytes % (Manual) 5 % (13-45) L 07/16/19 10:30 Monocytes % (Manual) 3 % (3-13) 07/16/19 10:30 Eosinophils % (Manual) 0 % (0-6) 07/16/19 10:30 Basophils % (Manual) 0 % (0-2) 07/16/19 10:30 Abs Neuts (Manual) 10.8 10^3/uL (1.7-8.2) H 07/16/19 10:30 Abs Lymphs (Manual) 0.6 10^3/uL (0.5-4.7) 07/16/19 10:30 Abs Monocytes (Manual) 0.4 10^3/uL (0.1-1.4) 07/16/19 10:30 Absolute Eos (Manual) 0.0 10^3/uL (0.0-0.6) 07/16/19 10:30 Abs Basophils (Manual) 0.0 10^3/uL (0.0-0.2) 07/16/19 10:30 Large Platelets PRESENT 07/16/19 10:30 Platelet Comment ADEQUATE 07/16/19 10:30 Anisocytosis SLIGHT 07/16/19 10:30 PT 15.9 SEC (11.4-15.4) H 07/16/19 10:30 INR 1.27 07/16/19 10:30 VBG pH 7.43 (7.30-7.42) H 07/16/19 11:28 VBG pCO2 41.0 mmHg (35-63) 07/16/19 11:28 VBG HCO3 26.3 mmol/L (20-32) 07/16/19 11:28 VBG Base Excess 1.8 mmol/L 07/16/19 11:28 Sodium 140.4 mmol/L (137-145) 07/19/19 04:45 Potassium 4.5 mmol/L (3.6-5.0) 07/19/19 04:45 Chloride 97 mmol/L (98-107) L 07/19/19 04:45 Carbon Dioxide 31 mmol/L (22-30) H 07/19/19 04:45 Anion Gap 12 (5-19) 07/19/19 04:45 BUN 32 mg/dL (7-20) H 07/19/19 04:45 Creatinine 1.17 mg/dL (0.52-1.25) 07/19/19 04:45 Est GFR ( Amer) > 60 (>60) 07/19/19 04:45 Est GFR (MDRD) Non-Af > 60 (>60) 07/19/19 04:45 Glucose 175 mg/dL (75-110) H 07/19/19 04:45 POC Glucose 173 mg/dL (70-110) H 07/20/19 16:48 Lactic Acid 2.0 mmol/L (0.7-2.1) 07/18/19 04:00 Lactic Acid (Sepsis) 7.0 mmol/L (0.7-2.1) H 07/16/19 18:35 Calcium 9.7 mg/dL (8.4-10.2) 07/19/19 04:45 Magnesium 2.4 mg/dL (1.6-2.3) H 07/19/19 04:45 Total Bilirubin 0.5 mg/dL (0.2-1.3) 07/19/19 04:45 Direct Bilirubin 0.2 mg/dL (0.0-0.4) 07/19/19 04:45 Neonat Total Bilirubin Not Reportable 07/19/19 04:45 Neonat Direct Bilirubin Not Reportable 07/19/19 04:45 Neonat Indirect Bili Not Reportable 07/19/19 04:45 AST 29 U/L (17-59) 07/19/19 04:45 ALT 26 U/L (<50) 07/19/19 04:45 Alkaline Phosphatase 78 U/L (38-126) 07/19/19 04:45 Troponin I 0.079 ng/mL 07/16/19 10:30 NT-Pro-B Natriuret Pep 5490 pg/mL (<450) H 07/16/19 10:30 Total Protein 7.0 g/dL (6.3-8.2) 07/19/19 04:45 Albumin 3.6 g/dL (3.5-5.0) 07/19/19 04:45 Influenza A (Rapid) NEGATIVE (NEGATIVE) 07/16/19 12:29 Influenza B (Rapid) NEGATIVE (NEGATIVE) 07/16/19 12:29 07/16/19 07/16/19 10:30 10:30 Troponin I 0.079 NT-Pro-B Natriuret Pep 5490 H Impressions: Chest CT 07/16/19 00:00 IMPRESSION: Chronic interstitial lung disease. Reticulonodular infiltrate which is nonspecific, but most likely infectious etiology. Chest X-Ray 07/16/19 10:41 IMPRESSION: Right upper lobe pneumonia. Stroke Is this a Stroke Patient?: No Acute Heart Failure - Is this a Heart Failure Patient?: No
== END 2019-07-20 17:50 | disposition home or self-care (01) | DRG 871 ==
LOC: ER 09:34 → EH 13:40 → 5 18:55
PROVIDERS: ADMIT Internal Medicine; ATTEND Internal Medicine
PROC: 5A09457 Assistance with Respiratory Ventilation, 24-96 Consecutive Hours, Continuous Positive Airway Pressure (ICD-10-PCS; principal; 2019-07-17)
PROC: 3E02340 Introduction of Influenza Vaccine into Muscle, Percutaneous Approach (ICD-10-PCS; 2019-07-20)
DX: A41.9 Sepsis, unspecified organism (principal); J13 Pneumonia due to Streptococcus pneumoniae; J96.21 Acute and chronic respiratory failure with hypoxia; J44.1 Chronic obstructive pulmonary disease with (acute) exacerbation; J44.0 Chronic obstructive pulmonary disease with (acute) lower respiratory infection; I50.22 Chronic systolic (congestive) heart failure; I48.0 Paroxysmal atrial fibrillation; I25.10 Atherosclerotic heart disease of native coronary artery without angina pectoris; E11.9 Type 2 diabetes mellitus without complications; I11.0 Hypertensive heart disease with heart failure; Z23 Encounter for immunization; Z79.01 Long term (current) use of anticoagulants; Z79.52 Long term (current) use of systemic steroids; Z79.899 Other long term (current) drug therapy; Z99.81 Dependence on supplemental oxygen; Z87.891 Personal history of nicotine dependence; Z83.6 Family history of other diseases of the respiratory system; Z86.73 Personal history of transient ischemic attack (TIA), and cerebral infarction without residual deficits
CPT/HCPCS: 36415; 71046; 71250; 80053; 82803; 82962; 83605; 83735; 83880; 84484; 85025; 85610; 87040; 87070; 87077; 87186; 87205; 87804; 90686; 93005; 93010; 94640; 94660; 99285; J0456; J0696; J1815; J1940; J2920; J3490; J7620

== ENCOUNTER 2019-07-24 20:37 | Inpatient (IN) | payer MEDICARE, MEDICAID ==
[2019-07-24 23:05] LABS: ABSOLUTE BASOPHILS # (AUTO) 0.1 10^3/uL (0.0-0.2); ABSOLUTE EOSINOPHILS # (AUTO) 0.2 10^3/uL (0.0-0.6); ABSOLUTE LYMPHOCYTES (AUTO) 1.8 10^3/uL (0.5-4.7); ABSOLUTE MONOCYTES (AUTO) 0.8 10^3/uL (0.1-1.4); BASOPHILS % (AUTO) 0.5 % (0-2); EOSINOPHILS % (AUTO) 1.4 % (0-6); HEMATOCRIT 42.2 % (37.9-51.0); HEMOGLOBIN 14.1 g/dL (13.5-17.0); LYMPHOCYTES % (AUTO) 15.3 % (13-45); MEAN CORPUSCULAR HEMOGLOBIN 29.8 pg (27.0-33.4); MEAN CORPUSCULAR HGB CONC 33.4 g/dL (32.0-36.0); MEAN CORPUSCULAR VOLUME 89 fl (80-97); MONOCYTES % (AUTO) 6.8 % (3-13); PLATELET COUNT 296 10^3/uL (150-450); RED BLOOD COUNT 4.74 10^6/uL (4.35-5.55); TOTAL CELLS COUNTED % (AUTO) 100 %; WHITE BLOOD COUNT 11.9 10^3/uL (4.0-10.5)
--- NOTE | 2019-07-24 23:09 | RADIOLOGY REPORT (SQ) ---
EXAM DESCRIPTION: XR CHEST 1 VIEW COMPLETED DATE/TME: 07/24/2019 22:13 CLINICAL HISTORY: 79 years Male, difficulty breathing COMPARISON: 07/16/19 NUMBER OF VIEWS/TECHNIQUE: 1/AP FINDINGS: Increased lung volume, mild chronic interstitial markings, normal cardiac silhouette, and intact bony thorax.Atherosclerotic vascular disease. IMPRESSION: No acute cardiopulmonary findings. Emphysematous hyperinflation. Mild chronic interstitial lung disease.
[2019-07-24 23:19] LABS: ALBUMIN 4.2 g/dL (3.5-5.0); ALKALINE PHOSPHATASE 106 U/L (38-126); ANION GAP 13 (5-19); ASPARTATE AMINO TRANSFERASE 24 U/L (17-59); BILIRUBIN,DIRECT 0.2 mg/dL (0.0-0.4); BILIRUBIN,TOTAL 0.8 mg/dL (0.2-1.3); BLOOD UREA NITROGEN 22 mg/dL (7-20); CALCIUM 9.7 mg/dL (8.4-10.2); CARBON DIOXIDE 30 mmol/L (22-30); CHLORIDE 99 mmol/L (98-107); GLUCOSE 164 mg/dL (75-110); POTASSIUM 4.2 mmol/L (3.6-5.0); TOTAL PROTEIN 7.7 g/dL (6.3-8.2)
[2019-07-24 23:58] LABS: APPEARANCE,URINE SLIGHTLY-CLOUDY; BILIRUBIN,URINE NEGATIVE (NEGATIVE); COLOR,URINE AMBER; GLUCOSE, URINE NEGATIVE (NEGATIVE); KETONES,URINE NEGATIVE (NEGATIVE); LEUKOCYTE ESTERASE,URINE MODERATE (NEGATIVE); NITRITE,URINE NEGATIVE (NEGATIVE); PROTEIN,URINE 30 mg/dL (NEGATIVE); URINE SPECIFIC GRAVITY 1.024; UROBILINOGEN,URINE NEGATIVE mg/dL (<2.0)
--- NOTE | 2019-07-24 23:58 | ER Document Report ---
ED General - General Chief Complaint: General Weakness Stated Complaint: WEAKNESS,DYSPNEA Time Seen by Provider: 07/24/19 23:13 Primary Care Provider: MARCELO GIORDANO MD [Primary Care Provider] - Follow up as needed Notes: This 79-year-old man presents to the emergency department with complaint of shortness of breath and generalized weakness. Apparently treated with antibiotics for a pneumonia in the hospital 2 days ago. At that time he has had a continued decline with increased weakness and shortness of breath. EMS brought him to the hospital, nebulizer treatment given in route as well as Solu- Medrol 125 mg IV. Patient has a history of COPD and is on home O2 at 2 L. His O2 was increased to 4 L per nasal cannula due to O2 sat at 90%. TRAVEL OUTSIDE OF THE [place] IN LAST 30 DAYS: No - Related Data Allergies/Adverse Reactions: No Known Allergies Allergy (Verified 10/22/17 21:00) Home Medications: paper list with chart Past Medical History - Social History Smoking Status: Former Smoker Family History: COPD Patient has suicidal ideation: No Patient has homicidal ideation: No - Past Medical History Cardiac Medical History: Reports: Hx Atrial Fibrillation, Hx Congestive Heart Failure, Hx Hypertension Denies: Hx Heart Attack Pulmonary Medical History: Reports: Hx Asthma, Hx COPD Neurological Medical History: Reports: Hx Cerebrovascular Accident. Denies: Hx Seizures Endocrine Medical History: Reports: Hx Diabetes Mellitus Type 2 Renal/ Medical History: Denies: Hx Peritoneal Dialysis GI Medical History: Denies: Hx Hepatitis, Hx Hiatal Hernia, Hx Ulcer Musculoskeletal Medical History: Reports Hx Arthritis Psychiatric Medical History: Denies: Hx Depression Infectious Medical History: Denies: Hx Hepatitis Past Surgical History: Reports: Hx Herniorrhaphy. Denies: Hx Open Heart Surgery , Hx Pacemaker - Immunizations Hx Diphtheria, Pertussis, Tetanus Vaccination: Yes Review of Systems - Review of Systems Notes: Constitutional: Generalized weakness HENT: Negative for sore throat. Eyes: Negative for visual changes. Cardiovascular: Negative for chest pain. Respiratory: + shortness of breath, + cough Gastrointestinal: Negative for abdominal pain, vomiting or diarrhea. Genitourinary: Negative for dysuria. Musculoskeletal: Negative for back pain. Skin: Negative for rash. Neurological: Negative for headaches, weakness or numbness. 10 point ROS negative except as marked above and in HPI. Physical Exam - Vital signs Vitals: Temp Pulse Resp BP Pulse Ox 98.6 F 72 17 123/64 96 07/24/19 20:38 07/24/19 20:38 07/24/19 20:38 07/24/19 20:38 07/24/19 20:38 - Notes Notes: PHYSICAL EXAMINATION: Physical Exam: General: Chronically ill elderly male with weakness and shortness of breath. HEENT: NC/AT, pupils equal round and reactive to light, MM moist,nares clear, Neck: supple, no adenopathy, no masses. Lungs: Scattered rhonchi and mild wheezes CVS: Regular rate and rhythm no murmur gallop or rub Abdomen: Soft active nontender, no masses, no hepatosplenomegaly Ext: No edema clubbing or cyanosis. Neuro: No focal neurologic abnormalities noted. Skin: Intact no open lesions, no rash PSYCH: Normal mood, normal affect. Course - Re-evaluation Re-evalutation: 07/25/19 02:03 General weakness and exacerbation of COPD with UTI., IV fluids, blood cultures x2, lactate ordered along with ABG. Those results are still pending. Elevated WBC, Rocephin 1 g IV and will talk to the hospitalist regarding admitting this patient. Dr. Grande was contacted and will admit the patient to the hospital for further evaluation and treatment. - Vital Signs Vital signs: Temp Pulse Resp BP Pulse Ox 98.6 F 72 23 H 123/64 98 07/24/19 21:04 07/24/19 20:38 07/24/19 21:04 07/24/19 21:04 07/24/19 22:13 - Laboratory Result Diagrams: 07/24/19 20:30 07/24/19 20:30 Laboratory results interpreted by me: 07/24/19 07/24/19 07/24/19 20:30 20:30 23:31 WBC 11.9 H RDW 15.0 H Absolute Neuts (auto) 9.0 H BUN 22 H Creatinine 1.43 H Est GFR ( Amer) 58 L Est GFR (MDRD) Non-Af 48 L Glucose 164 H Urine Protein 30 H Ur Leukocyte Esterase MODERATE H Urine Ascorbic Acid 40 H Discharge - Discharge Clinical Impression: COPD with exacerbation, Hypoxia, Generalized weakness, UTI (urinary tract infection) Condition: Good Disposition: ADMITTED INPATIENT Admitting Provider: Christiane (Hospitalist) Unit Admitted: Medical Floor Referrals: MARCELO GIORDANO MD [Primary Care Provider] - Follow up as needed
--- NOTE | 2019-07-25 00:18 | EKG REPORT ---
SEVERITY:- ABNORMAL ECG - SINUS RHYTHM NONSPECIFIC IVCD WITH LAD : Confirmed by: Bijal Loza 25-Jul-2019 00:18:21
[2019-07-25] MEDS ORDERED: CEFTRIAXONE INJ 1000 MG VIAL IV ONE (00:26)
[2019-07-25] MEDS ORDERED: LEVALBUTEROL HCL NEB 0.63 MG/3 ML AMPUL NEB PRN (01:48)
[2019-07-25] MEDS ORDERED: ACETAMINOPHEN 325 MG TABLET PO PRN (01:48)
[2019-07-25] MEDS ORDERED: DEXTROSE 40% GEL 15 GM TUBE PO PRN ×2 (01:54)
[2019-07-25] MEDS ORDERED: DEXTROSE 50%-WATER 25 GM/50 ML DISP.SYRIN IV PRN ×2 (01:54)
[2019-07-25] MEDS ORDERED: GLUCAGON,HUMAN RECOMB 1 MG INJ IM PRN (01:54)
[2019-07-25] MEDS ORDERED: ONDANSETRON HCL INJ/PF 4 MG/2 ML SDV IV PRN (01:57)
[2019-07-25] MEDS ORDERED: MAGNESIUM HYDROXIDE SUSP 30 ML UDCUP PO PRN (01:57)
[2019-07-25] MEDS ORDERED: MAG HYDROX/AL HYDROX/SIMETH SUSP 30 ML UDCUP PO PRN (01:57)
[2019-07-25] MEDS ORDERED: CEFTRIAXONE 1 GM/D5W RTU 1 GM/50 ML RTUPB IV ONE (02:00)
[2019-07-25 03:03] LABS: DIGOXIN 0.66 ng/mL (0.8-2.0)
[2019-07-25 03:12] LABS: CREATINE KINASE MB 2.57 ng/mL (<4.55)
[2019-07-25 03:31] LABS: TROPONIN I 0.035 ng/mL
[2019-07-25] MEDS: RINGERS SOLUTION,LACTATED 1,000 ML IV PRN ×2 (04:12→09:54)
[2019-07-25] MEDS: PANTOPRAZOLE SODIUM 40 MG TABLET.DR PO SCH (05:27)
[2019-07-25 05:35] LABS: VENOUS BLOOD BASE EXCESS 3.3 mmol/L; VENOUS BLOOD HCO3 28.7 mmol/L (20-32); VENOUS BLOOD PCO2 46.7 mmHg (35-63); VENOUS BLOOD PH 7.41 (7.30-7.42)
[2019-07-25] MEDS ORDERED: HEPARIN SOD (PORCINE) 5,000 UNIT/ML 1 ML VIAL SUBCUT SCH (06:00)
--- NOTE | 2019-07-25 06:14 | PDOC H&P ---
History of Present Illness Admission Date/PCP: 07/25/2019 02:04 MARCELO GIORDANO MD Patient complains of: Generalized weakness History of Present Illness: HAWA YANG is a 79 year old male who presents emergency room with a 4-day history of generalized weakness. Patient endorses progressive generalized weakness since his discharge from the hospital on 07/20/2019. His generalized weakness has been accompanied by his chronic dyspnea and chronic dyspnea on exertion due to his severe systolic congestive heart failure and severe COPD. He was treated with Levaquin for a pneumonia on his recent hospitalization and finished the prescription 2 days ago. He denies other associated or accompanying signs and symptoms. He has not identified any additional aggravating or ameliorating factors for his generalized weakness. EMS was called to bring patient to the hospital and treated him for an acute exacerbation of COPD with 125 mg of IV Solu-Medrol in route. In the emergency room the patient was found to have a white blood count of 11,500 and was noted to be afebrile and have a normal lactic acid. He required O2 at 4 L/min to maintain his O2 sat in the 90 to 94% range and this is noted to be the amount of oxygen he is receiving on a continuous basis at home. Patient was noted to have pyuria, blood and urine cultures are pending. The patient was started on Rocephin, empirically for a presumed urinary tract infection. He was subsequently admitted to hospital for further evaluation and treatment. Past Medical History Cardiac Medical History: Reports: Atrial Fibrillation, Congestive Heart Failure, Hypertension Denies: Myocardial Infarction Pulmonary Medical History: Reports: Asthma, Bronchitis, Chronic Obstructive Pulmonary Disease (COPD), Pneumonia, Respiratory Failure - Chronic respiratory failure with hypoxia EENT Medical History: Denies: Cataracts, Ears - Hearing aids Neurological Medical History: Denies: Hemorrhagic CVA, Ischemic CVA, Seizures Endocrine Medical History: Reports: Diabetes Mellitus Type 2 Denies: Diabetes Mellitus Type 1, Hyperthyroidism, Hypothyroidism Renal/ Medical History: Denies: Chronic Kidney Disease, Nephrolithiasis Malignancy Medical History: Reports: None GI Medical History: Denies: Cirrhosis, Crohn's Disease, Hepatitis, Hiatal Hernia, Ulcerative Colitis Musculoskeltal Medical History: Reports: Arthritis Denies: Gout Skin Medical History: Denies: Eczema, Psoriasis Psychiatric Medical History: Denies: Alcohol Dependency, Depression, Substance Abuse, Tobacco Dependency Traumatic Medical History: Reports: None Hematology: Reports: Anemia Denies: Bleeding Tendencies Infectious Medical History: Reports: None Past Surgical History Past Surgical History: Reports: Herniorrhaphy Social History Information Source: Patient Lives with: Alone Smoking Status: Former Smoker Electronic Cigarette use?: No Frequency of Alcohol Use: None Hx Recreational Drug Use: No Drugs: None Hx Prescription Drug Abuse: No - Advance Directive Resuscitation Status: Full Code Surrogate healthcare decision maker:: Teri Zhang Family History Family History: COPD. denies: CAD, DM, Hypertension, Malignancy Parental Family History Reviewed: Yes Children Family History Reviewed: No Sibling(s) Family History Reviewed.: Yes Medication/Allergy Home Medications: Apixaban [Eliquis 5 mg Tablet] 5 mg PO Q12 10/23/17 Digoxin [Lanoxin 0.125 mg Tablet] 0.125 mg PO DAILY 10/23/17 Metoprolol Succinate [Toprol Xl 50 mg Tab.sr] 50 mg PO DAILY 10/23/17 Omeprazole 20 mg PO DAILY 10/23/17 Roflumilast [Daliresp 500 mcg Tablet] 500 mcg PO DAILY 10/23/17 Sertraline HCl [Zoloft] 100 mg PO QHS 10/23/17 Tiotropium [place] [Spiriva Handihaler 18 mcg/dose (30 Dose)] 1 cap PO DAILY 10/23/17 Furosemide [Lasix 40 mg Tablet] 40 mg PO DAILY tablet 10/27/17 Acetylcysteine [NAC 600 mg Capsule] 600 mg PO MEALS 07/16/19 Albuterol Sulfate [Albuterol Sulfate Hfa] 2 puff IH Q6HP PRN 07/16/19 Fluticasone/Salmeterol [Advair 250-50 Diskus 14 Dose/Diskus] 1 inh IH Q12 07/16/19 Glipizide [Glucotrol Xl 5 mg Tab.er] 5 mg PO DAILY 07/16/19 Sacubitril/Valsartan [Entresto 24 mg/26 mg Tablet] 1 tab PO Q12 07/16/19 Levofloxacin [Levaquin] 500 mg PO DAILY 5 Days #5 tablet 07/20/19 Prednisone 50 mg PO DAILY 5 Days #5 tablet 07/20/19 Allergies/Adverse Reactions: No Known Allergies Allergy (Verified 10/22/17 21:00) Review of Systems Constitutional: PRESENT: as per HPI, weakness. ABSENT: chills, fever(s) Eyes: ABSENT: visual disturbances, other - Eye pain Ears: ABSENT: hearing changes, other - Ear pain Nose, Mouth, and Throat: ABSENT: headache(s), mouth pain, sore throat Cardiovascular: PRESENT: as per HPI, dyspnea on exertion - Chronic dyspnea on exertion. ABSENT: chest pain, palpitations Respiratory: PRESENT: as per HPI, dyspnea - Chronic dyspnea, other - Chronic wheezing. ABSENT: cough Gastrointestinal: ABSENT: abdominal pain, constipation, diarrhea, nausea, vomiting Genitourinary: ABSENT: dysuria, hematuria Musculoskeletal: ABSENT: back pain, joint swelling, muscle weakness Integumentary: ABSENT: pruritus, rash Neurological: ABSENT: confusion, convulsions, focal weakness, memory loss, syncope Psychiatric: ABSENT: anxiety, depression Endocrine: ABSENT: cold intolerance, heat intolerance Hematologic/Lymphatic: ABSENT: easy bleeding, easy bruising Allergic/Immunologic: ABSENT: seasonal rhinorrhea Physical Exam Vital Signs: Temp Pulse Resp BP Pulse Ox 98.6 F 72 23 H 123/64 98 07/24/19 21:04 07/24/19 20:38 07/24/19 21:04 07/24/19 21:04 07/24/19 22:13 Intake & Output 07/23/19 07/24/19 07/25/19 23:59 23:59 23:59 Weight 85.9 kg General appearance: PRESENT: no acute distress, cooperative Head exam: PRESENT: atraumatic, normocephalic Eye exam: PRESENT: conjunctiva pink. ABSENT: conjunctival injection, scleral icterus Ear exam: PRESENT: normal external ear exam. ABSENT: bleeding, drainage Mouth exam: PRESENT: dry mucosa, neck supple Neck exam: ABSENT: thyromegaly, tracheal deviation Respiratory exam: PRESENT: prolonged expiratory phas - in all harris mildly prolonged expiratory phase throughout all harris, symmetrical, wheezes - Minimal expiratory wheezes noted Cardiovascular exam: PRESENT: RRR. ABSENT: clicks, gallop, rubs Pulses: PRESENT: normal radial pulses, normal dorsalis pedis pul Vascular exam: PRESENT: normal capillary refill. ABSENT: pallor GI/Abdominal exam: PRESENT: normal bowel sounds, soft Rectal exam: PRESENT: deferred Extremities exam: ABSENT: joint swelling, pedal edema Musculoskeletal exam: ABSENT: deformity, dislocation Neurological exam: PRESENT: alert, oriented to person, oriented to place, oriented to time, oriented to situation, CN II-XII grossly intact. ABSENT: motor sensory deficit Psychiatric exam: PRESENT: appropriate affect, normal mood Skin exam: PRESENT: dry, intact, warm. ABSENT: jaundice, rash, urticaria Results Laboratory Results: 07/24/19 20:30 07/24/19 20:30 07/24/19 07/24/19 07/24/19 20:30 20:30 23:31 WBC 11.9 H RBC 4.74 Hgb 14.1 Hct 42.2 MCV 89 MCH 29.8 MCHC 33.4 RDW 15.0 H Plt Count 296 Seg Neutrophils % 76.0 Sodium 142.3 Potassium 4.2 Chloride 99 Carbon Dioxide 30 Anion Gap 13 BUN 22 H Creatinine 1.43 H Est GFR ( Amer) 58 L Glucose 164 H Calcium 9.7 Total Bilirubin 0.8 AST 24 Alkaline Phosphatase 106 Total Protein 7.7 Albumin 4.2 Urine Color SOFIA Urine Appearance SLIGHTLY-CLOUDY Urine pH 5.0 Ur Specific [place] 1.024 Urine Protein 30 H Urine Glucose (UA) NEGATIVE Urine Ketones NEGATIVE Urine Blood NEGATIVE Urine Nitrite NEGATIVE Ur Leukocyte Esterase MODERATE H Urine WBC (Auto) 22 Urine RBC (Auto) 6 Impressions: Chest X-Ray 07/24/19 22:13 IMPRESSION: No acute cardiopulmonary findings. Emphysematous hyperinflation. Mild chronic interstitial lung disease. Assessment and Plan - Diagnosis (1) Acute nontraumatic kidney injury Is this a current diagnosis for this admission?: Yes (2) Pyuria Is this a current diagnosis for this admission?: Yes (3) Chronic respiratory failure with hypoxia Is this a current diagnosis for this admission?: Yes (4) Chronic systolic congestive heart failure Is this a current diagnosis for this admission?: Yes (5) Diabetes mellitus type 2 in nonobese Is this a current diagnosis for this admission?: Yes (6) COPD (chronic obstructive pulmonary disease) Qualifiers: Chronic bronchitis type: unspecified Is this a current diagnosis for this admission?: Yes (7) Bronchiectasis Qualifiers: Bronchiectasis type: uncomplicated Qualified Code(s): J47.9 - Bronchiectasis, uncomplicated Is this a current diagnosis for this admission?: Yes (8) Essential hypertension Is this a current diagnosis for this admission?: Yes (9) Coronary artery disease Qualifiers: Coronary Disease-Associated Artery/Lesion type: [place] artery [place] vs. transplanted heart: [place] heart Associated angina: angina presence unspecified Qualified Code(s): I25.10 - Atherosclerotic heart disease of [place] coronary artery without angina pectoris Is this a current diagnosis for this admission?: Yes - Plan Summary Summary: Patient is admitted to the medical floor for routine supportive and symptomatic cares. He will receive IV fluids X 3 L, and was started empirically on Rocephin in the emergency room. His renal functions will be monitored closely with serial metabolic profiles. Patient will have serial CBCs at appropriate intervals. Before meals and at bedtime Accu-Cheks will be obtained with sliding scale insulin to treat hyperglycemia and a hypoglycemic protocol in place. Patient's regular daily medications for his chronic medical problems will be restarted as soon as an accurate medication reconciliation can be obtained. In the interim he will be started on the most significant of those agents based upon his previous discharge. - Time Time Spent with patient: 25-34 minutes Medications reviewed and adjusted accordingly: Yes Anticipated discharge: Home with Homehealth - Inpatient Certification Based on my medical assessment, after consideration of the patient's comorbidities, presenting symptoms, or acuity I expect that the services needed warrant INPATIENT care.: Yes I certify that my determination is in accordance with my understanding of Medicare's requirements for reasonable and necessary INPATIENT services [42 CFR 412.3e].: Yes Medical Necessity: Significant Comorbidiites Make Outpatient Treatment Too Risky, Need Close Monitoring Due to Risk of Patient Decompensation, Need For IV Fluids, Need for Nebulizer Therapy and Monitoring of Response, Need for IV Antibiotics, Risk of Complication if Not Cared For in Hospital
[2019-07-25] MEDS: BUDESONIDE NEB 0.5 MG/2 ML AMPUL NEB SCH ×2 (08:52→20:07)
[2019-07-25] MEDS: IPRATROPIUM BROMIDE 0.02% NEB 0.5 MG/2.5 ML AMPUL NEB SCH ×2 (08:52→17:17)
[2019-07-25] MEDS: LEVALBUTEROL HCL NEB 1.25 MG/3 ML AMPUL NEB SCH ×2 (08:52→17:17)
[2019-07-25 08:55] LABS: CREATINE KINASE MB 2.43 ng/mL (<4.55); TROPONIN I 0.033 ng/mL
[2019-07-25] MEDS: INSULIN REG, HUMAN 100 UNIT/ML 3 ML VIAL (PYX) SUBCUT SCH ×4 (09:54→20:59)
[2019-07-25] MEDS: DIGOXIN 0.125 MG TABLET PO SCH (09:54)
[2019-07-25] MEDS: METOPROLOL SUCCINATE 50 MG TAB.SR.24H PO SCH (09:56)
[2019-07-25] MEDS: DOCUSATE SODIUM 100 MG CAPSULE PO SCH ×2 (09:56→17:17)
[2019-07-25] MEDS: SACUBITRIL/VALSARTAN 24 MG/26 MG TABLET PO SCH ×2 (09:56→21:02)
[2019-07-25] MEDS: APIXABAN 5 MG TABLET PO SCH ×2 (09:56→17:17)
[2019-07-25] MEDS: GLIPIZIDE XL 5 MG TAB.ER.24 PO SCH (09:56)
[2019-07-25] MEDS ORDERED: FUROSEMIDE 40 MG TABLET PO SCH (10:00)
[2019-07-25] MEDS ORDERED: TORSEMIDE 20 MG TABLET PO SCH (10:00)
[2019-07-25] MEDS ORDERED: NORMAL SALINE 1000 ML 1,000 ML IV ONE (12:12)
[2019-07-25] MEDS: NORMAL SALINE 1000 ML 1,000 ML IV PRN ×2 (13:27→21:05)
[2019-07-25 16:44] LABS: CREATINE KINASE MB 2.89 ng/mL (<4.55)
[2019-07-25 16:54] LABS: TROPONIN I 0.039 ng/mL
--- NOTE | 2019-07-25 18:59 | Progress Note ---
Provider Note Provider Note: The patient is an 79-year-old male with a past medical history of atrial fibrillation, CHF, hypertension, COPD, pneumonia, chronic respiratory failure, DM 2, arthritis who was admitted early this morning by the floatman for acute kidney injury, pyuria, and generalized weakness. Overnight events, vital signs, laboratory results, imaging, EKG findings, and orders reviewed. Agree with plan of care as established by the previous provider. Additionally, have continued gentle IV fluids. Blood and Urine cultures are pending; remains on IV Rocephin. Patient's home medications have not yet been reconciled; will review those and resume as appropriate once pharmacy is confirmed medications, dosing and frequency. Discussed with nursing; no concerns at this time.
[2019-07-25] MEDS ORDERED: CEFTRIAXONE 1 GM/D5W RTU 1 GM/50 ML RTUPB IV SCH (22:00)
[2019-07-26] MEDS: IPRATROPIUM BROMIDE 0.02% NEB 0.5 MG/2.5 ML AMPUL NEB SCH ×3 (00:41→16:05)
[2019-07-26] MEDS: LEVALBUTEROL HCL NEB 1.25 MG/3 ML AMPUL NEB SCH ×3 (00:41→16:04)
[2019-07-26 05:18] LABS: VENOUS BLOOD BASE EXCESS 2.4 mmol/L; VENOUS BLOOD HCO3 29.1 mmol/L (20-32); VENOUS BLOOD PH 7.35 (7.30-7.42)
[2019-07-26 05:33] LABS: HEMATOCRIT 36.3 % (37.9-51.0); HEMOGLOBIN 12.2 g/dL (13.5-17.0); MEAN CORPUSCULAR HEMOGLOBIN 29.7 pg (27.0-33.4); MEAN CORPUSCULAR HGB CONC 33.5 g/dL (32.0-36.0); MEAN CORPUSCULAR VOLUME 89 fl (80-97); PLATELET COUNT 202 10^3/uL (150-450); RED BLOOD COUNT 4.09 10^6/uL (4.35-5.55); WHITE BLOOD COUNT 8.2 10^3/uL (4.0-10.5)
[2019-07-26] MEDS: PANTOPRAZOLE SODIUM 40 MG TABLET.DR PO SCH (05:35)
[2019-07-26 05:41] LABS: ANION GAP 10 (5-19); BLOOD UREA NITROGEN 24 mg/dL (7-20); CALCIUM 8.3 mg/dL (8.4-10.2); CARBON DIOXIDE 29 mmol/L (22-30); CHLORIDE 103 mmol/L (98-107); GLUCOSE 102 mg/dL (75-110); POTASSIUM 3.6 mmol/L (3.6-5.0)
[2019-07-26] MEDS: NORMAL SALINE 1000 ML 1,000 ML IV PRN (06:19)
[2019-07-26] MEDS: INSULIN REG, HUMAN 100 UNIT/ML 3 ML VIAL (PYX) SUBCUT SCH ×4 (08:10→21:44)
[2019-07-26] MEDS: GLIPIZIDE XL 5 MG TAB.ER.24 PO SCH (08:11)
[2019-07-26] MEDS: BUDESONIDE NEB 0.5 MG/2 ML AMPUL NEB SCH ×2 (09:06→20:51)
[2019-07-26] MEDS: SACUBITRIL/VALSARTAN 24 MG/26 MG TABLET PO SCH ×2 (10:42→21:44)
[2019-07-26] MEDS: METOPROLOL SUCCINATE 50 MG TAB.SR.24H PO SCH (10:42)
[2019-07-26] MEDS: DIGOXIN 0.125 MG TABLET PO SCH (10:43)
[2019-07-26] MEDS: APIXABAN 5 MG TABLET PO SCH ×2 (10:43→17:14)
[2019-07-26] MEDS: DOCUSATE SODIUM 100 MG CAPSULE PO SCH ×2 (10:43→17:14)
[2019-07-26] MEDS: PREDNISONE 20 MG TABLET PO SCH (10:44)
--- NOTE | 2019-07-26 14:59 | PDOC PROGRESS REPORT ---
Subjective Progress Note for:: 07/26/19 Subjective:: The patient is an 79-year-old male with a past medical history of atrial fibrillation, CHF, hypertension, COPD, pneumonia, chronic respiratory failure, DM 2, arthritis who was admitted early this morning by the employment service specialist for acute kidney injury, pyuria, and generalized weakness. He was seen on morning rounds. He was found sitting up in the recliner, comfortably, on supplemental oxygen via nasal cannula. He does confirm that he has home O2. He reports that he is feeling better today, although continues to have increased fatigue and generalized weakness from his baseline. He also reports slight shortness of breath this morning that is his primary concern. He is noted to have audible wheezing. Otherwise, he denies fever, chills, chest pain, palpitations, orthopnea, cough, abdominal pain, nausea vomiting diarrhea. He reports good appetite. He has no new questions or concerns. No concerns per nursing. Reason For Visit: GENERALIZED WEAKNESS,PYURIA,LEUKOCYTOSIS Physical Exam Vital Signs: Temp Pulse Resp BP Pulse Ox 97.5 F 58 L 20 133/61 H 98 07/26/19 12:00 07/26/19 12:00 07/26/19 12:00 07/26/19 12:00 07/26/19 12:00 Intake & Output 07/25/19 07/26/19 07/27/19 06:59 06:59 06:59 Intake Total 240 6675 240 Output Total 450 2875 475 Balance -210 3800 -235 Weight 85.9 kg 81.4 kg General appearance: PRESENT: no acute distress, cooperative, well-developed, well-nourished Head exam: PRESENT: atraumatic, normocephalic Eye exam: PRESENT: conjunctiva pink, EOMI, PERRLA. ABSENT: scleral icterus Ear exam: PRESENT: normal external ear exam Mouth exam: PRESENT: moist, tongue midline Respiratory exam: PRESENT: prolonged expiratory phas, rhonchi, symmetrical, unlabored, wheezes, other - Supplemental oxygen via nasal cannula. ABSENT: rales Cardiovascular exam: PRESENT: RRR, +S1, +S2. ABSENT: diastolic murmur, rubs, systolic murmur Vascular exam: PRESENT: normal capillary refill Rectal exam: PRESENT: deferred Extremities exam: PRESENT: full ROM. ABSENT: calf tenderness, clubbing, pedal edema Musculoskeletal exam: PRESENT: ambulatory Neurological exam: PRESENT: alert, awake, oriented to person, oriented to place, oriented to time, oriented to situation, CN II-XII grossly intact. ABSENT: motor sensory deficit Psychiatric exam: PRESENT: appropriate affect, normal mood. ABSENT: homicidal ideation, suicidal ideation Skin exam: PRESENT: dry, intact, warm. ABSENT: cyanosis, rash Results Laboratory Results: 07/26/19 05:03 07/26/19 05:03 07/26/19 07/26/19 07/26/19 05:03 05:03 05:03 WBC 8.2 RBC 4.09 L Hgb 12.2 L Hct 36.3 L MCV 89 MCH 29.7 MCHC 33.5 RDW 15.0 H Plt Count 202 VBG pH 7.35 VBG pCO2 54.0 VBG HCO3 29.1 VBG Base Excess 2.4 Sodium 142.2 Potassium 3.6 Chloride 103 Carbon Dioxide 29 Anion Gap 10 BUN 24 H Creatinine 1.14 Est GFR ( Amer) > 60 Glucose 102 Calcium 8.3 L Magnesium 2.2 07/25/19 07/25/19 07/25/19 02:13 02:13 08:05 Creatine Kinase 32 L 30 L CK-MB (CK-2) 2.57 Troponin I 0.035 NT-Pro-B Natriuret Pep 1570 H 07/25/19 07/25/19 07/25/19 08:05 15:09 15:09 Creatine Kinase 39 L CK-MB (CK-2) 2.43 2.89 Troponin I 0.033 0.039 NT-Pro-B Natriuret Pep Impressions: Chest X-Ray 07/24/19 22:13 IMPRESSION: No acute cardiopulmonary findings. Emphysematous hyperinflation. Mild chronic interstitial lung disease. Assessment and Plan - Diagnosis (1) COPD exacerbation Is this a current diagnosis for this admission?: Yes Plan: Supplemental oxygen as needed to maintain saturations greater than 89%. Scheduled and as needed nebulizer treatments. P.o. prednisone. Pulmonary toilet. (2) Bronchiectasis Qualifiers: Bronchiectasis type: uncomplicated Qualified Code(s): J47.9 - Bronchie ctasis, uncomplicated Is this a current diagnosis for this admission?: Yes Plan: Management as above. (3) Acute nontraumatic kidney injury Is this a current diagnosis for this admission?: Yes Plan: Resolved; Cr 1.43-> 1.14 Prerenal; improved with IVF. Continue gentle IVF. Encourage p.o. fluids. Avoid nephrotoxic medications. Follow-up chemistry. (4) Chronic respiratory failure with hypoxia Is this a current diagnosis for this admission?: Yes Plan: Home O2 dependent. Currently with mild COPD exacerbation; management as above. (5) Chronic systolic congestive heart failure Is this a current diagnosis for this admission?: Yes Plan: Stable and without exacerbation at this time. Continue home medication regiment. Cardiac diet. Daily weights. (6) Diabetes mellitus type 2 in nonobese Is this a current diagnosis for this admission?: Yes Plan: Continue home dose glipizide. Accu-Cheks before meals and at bedtime with sliding scale coverage. Cardiac diet. Hypoglycemia protocol. (7) Pyuria Is this a current diagnosis for this admission?: Yes Plan: Urinalysis revealed pyuria. Urine culture is positive for C albicans Patient was empirically placed on IV Rocephin; will discontinue. (8) Coronary artery disease Qualifiers: Coronary Disease-Associated Artery/Lesion type: [place] artery [place] vs. transplanted heart: [place] heart Associated angina: angina presence unspecified Qualified Code(s): I25.10 - Atherosclerotic heart disease of [place] coronary artery without angina pectoris Is this a current diagnosis for this admission?: Yes Plan: Stable; no chest pain at present. Continue outpatient medication regimen. (9) Essential hypertension Is this a current diagnosis for this admission?: Yes Plan: Acceptable blood pressures. Continue home medication regimen. - Time Time Spent with patient: 25-34 minutes Medications reviewed and adjusted accordingly: Yes Anticipated discharge: Home with Homehealth Within: within 24 hours
[2019-07-27] MEDS: IPRATROPIUM BROMIDE 0.02% NEB 0.5 MG/2.5 ML AMPUL NEB SCH ×4 (00:20→21:25)
[2019-07-27] MEDS: LEVALBUTEROL HCL NEB 1.25 MG/3 ML AMPUL NEB SCH ×4 (00:20→21:25)
[2019-07-27 02:31] LABS: HEMATOCRIT 36.4 % (37.9-51.0); HEMOGLOBIN 12.2 g/dL (13.5-17.0); MEAN CORPUSCULAR HEMOGLOBIN 29.2 pg (27.0-33.4); MEAN CORPUSCULAR HGB CONC 33.4 g/dL (32.0-36.0); MEAN CORPUSCULAR VOLUME 87 fl (80-97); PLATELET COUNT 243 10^3/uL (150-450); RED BLOOD COUNT 4.17 10^6/uL (4.35-5.55); RED CELL DISTRIBUTION WIDTH 15.1 % (11.5-14.0)
[2019-07-27 02:51] LABS: ANION GAP 6 (5-19); BLOOD UREA NITROGEN 20 mg/dL (7-20); CALCIUM 8.4 mg/dL (8.4-10.2); CARBON DIOXIDE 29 mmol/L (22-30); CHLORIDE 108 mmol/L (98-107); POTASSIUM 4.1 mmol/L (3.6-5.0)
[2019-07-27 02:55] LABS: GLUCOSE 60 mg/dL (75-110)
[2019-07-27] MEDS: PANTOPRAZOLE SODIUM 40 MG TABLET.DR PO SCH (06:39)
[2019-07-27] MEDS: NORMAL SALINE 1000 ML 1,000 ML IV PRN (06:45)
[2019-07-27] MEDS: INSULIN REG, HUMAN 100 UNIT/ML 3 ML VIAL (PYX) SUBCUT SCH ×4 (07:26→21:12)
[2019-07-27] MEDS: GLIPIZIDE XL 5 MG TAB.ER.24 PO SCH (07:28)
[2019-07-27] MEDS: BUDESONIDE NEB 0.5 MG/2 ML AMPUL NEB SCH ×2 (08:36→21:25)
[2019-07-27] MEDS ORDERED: FUROSEMIDE 40 MG TABLET PO SCH (10:00)
[2019-07-27] MEDS: APIXABAN 5 MG TABLET PO SCH ×2 (10:21→18:19)
[2019-07-27] MEDS: DOCUSATE SODIUM 100 MG CAPSULE PO SCH ×2 (10:21→18:19)
[2019-07-27] MEDS: FUROSEMIDE 20 MG TABLET PO SCH (10:21)
[2019-07-27] MEDS: METOPROLOL SUCCINATE 50 MG TAB.SR.24H PO SCH (10:21)
[2019-07-27] MEDS: PREDNISONE 20 MG TABLET PO SCH (10:21)
[2019-07-27] MEDS: DIGOXIN 0.125 MG TABLET PO SCH (10:22)
[2019-07-27] MEDS: ROFLUMILAST 500 MCG TABLET PO SCH (10:22)
[2019-07-27] MEDS: SACUBITRIL/VALSARTAN 24 MG/26 MG TABLET PO SCH ×2 (10:22→21:12)
--- NOTE | 2019-07-27 15:37 | PDOC PROGRESS REPORT ---
Subjective Progress Note for:: 07/27/19 Subjective:: The patient is an 79-year-old male with a past medical history of atrial fibrillation, CHF, hypertension, COPD, pneumonia, chronic respiratory failure, DM 2, arthritis who was admitted early this morning by the director it for acute kidney injury, pyuria, and generalized weakness. He was seen on morning rounds. He was found resting in bed, comfortably, on supplemental oxygen via nasal cannula. He confirms that he has home O2. He also reports continued shortness of breath. He is noted to have audible wheezing. Otherwise, he denies fever, chills, chest pain, palpitations, orthopnea, cough, abdominal pain, nausea, vomiting, diarrhea. He reports good appetite. He has no new questions or concerns. No concerns per nursing. Reason For Visit: GENERALIZED WEAKNESS,PYURIA,LEUKOCYTOSIS Physical Exam Vital Signs: Temp Pulse Resp BP Pulse Ox 97.9 F 94 16 133/63 H 96 07/27/19 11:04 07/27/19 14:17 07/27/19 14:17 07/27/19 11:04 07/27/19 14:17 Intake & Output 07/26/19 07/27/19 07/28/19 06:59 06:59 06:59 Intake Total 6675 2120 360 Output Total 2875 2000 300 Balance 3800 120 60 Weight 81.4 kg 83 kg General appearance: PRESENT: no acute distress, cooperative, well-developed, well-nourished - overweight Head exam: PRESENT: atraumatic, normocephalic Eye exam: PRESENT: conjunctiva pink, EOMI, PERRLA. ABSENT: scleral icterus Ear exam: PRESENT: normal external ear exam Mouth exam: PRESENT: moist, tongue midline Respiratory exam: PRESENT: accessory muscle use, prolonged expiratory phas, symmetrical, unlabored, wheezes - throughout, other - supplemental oxygen via NC. ABSENT: rales, rhonchi Cardiovascular exam: PRESENT: RRR, +S1, +S2. ABSENT: diastolic murmur, rubs, systolic murmur Pulses: PRESENT: normal dorsalis pedis pul Vascular exam: PRESENT: normal capillary refill GI/Abdominal exam: PRESENT: normal bowel sounds, soft. ABSENT: distended, guarding, mass, organolmegaly, rebound, tenderness Rectal exam: PRESENT: deferred Extremities exam: PRESENT: full ROM. ABSENT: calf tenderness, clubbing, pedal edema Musculoskeletal exam: PRESENT: ambulatory Neurological exam: PRESENT: alert, awake, oriented to person, oriented to place, oriented to time, oriented to situation, CN II-XII grossly intact. ABSENT: motor sensory deficit Psychiatric exam: PRESENT: appropriate affect, normal mood. ABSENT: homicidal ideation, suicidal ideation Skin exam: PRESENT: dry, intact, warm. ABSENT: cyanosis, rash Results Laboratory Results: 07/27/19 02:22 07/27/19 02:22 07/27/19 07/27/19 02:22 02:22 WBC 12.0 H RBC 4.17 L Hgb 12.2 L Hct 36.4 L MCV 87 MCH 29.2 MCHC 33.4 RDW 15.1 H Plt Count 243 Sodium 142.6 Potassium 4.1 Chloride 108 H Carbon Dioxide 29 Anion Gap 6 BUN 20 Creatinine 1.17 Est GFR ( Amer) > 60 Glucose 60 L Calcium 8.4 Magnesium 2.1 07/24/19 23:31 Clean Catch Midstream Urine Culture - Final C.albicans/C.dubliniensis Staph Coagulase Negative 07/25/19 07/25/19 07/25/19 02:13 02:13 08:05 Creatine Kinase 32 L 30 L CK-MB (CK-2) 2.57 Troponin I 0.035 NT-Pro-B Natriuret Pep 1570 H 07/25/19 07/25/19 07/25/19 08:05 15:09 15:09 Creatine Kinase 39 L CK-MB (CK-2) 2.43 2.89 Troponin I 0.033 0.039 NT-Pro-B Natriuret Pep Impressions: Chest X-Ray 07/24/19 22:13 IMPRESSION: No acute cardiopulmonary findings. Emphysematous hyperinflation. Mild chronic interstitial lung disease. Assessment and Plan - Diagnosis (1) COPD exacerbation Is this a current diagnosis for this admission?: Yes Plan: Supplemental oxygen as needed to maintain saturations greater than 89%. Scheduled and as needed nebulizer treatments. Increase frequency of scheduled nebs. P.o. prednisone. Resume home dose claritin. Continue home dose Daliresp. Start Mucinex and Singulair. Pulmonary toilet. (2) Bronchiectasis Qualifiers: Bronchiectasis type: uncomplicated Qualified Code(s): J47.9 - Bronchiectasis, uncomplicated Is this a current diagnosis for this admission?: Yes Plan: Management as above. (3) Acute nontraumatic kidney injury Is this a current diagnosis for this admission?: Yes Plan: Resolved; Cr 1.43-> 1.14-> 1.17 Prerenal; improved with IVF. Stop IVF. Encourage p.o. fluids. Avoid nephrotoxic medications. Follow-up chemistry. (4) Chronic respiratory failure with hypoxia Is this a current diagnosis for this admission?: Yes Plan: Home O2 dependent. Currently with mild COPD exacerbation; management as above. (5) Chronic systolic congestive heart failure Is this a current diagnosis for this admission?: Yes Plan: Stable and without exacerbation at this time. Continue home medication regiment. Cardiac diet. Daily weights. (6) Diabetes mellitus type 2 in nonobese Is this a current diagnosis for this admission?: Yes Plan: Continue home dose glipizide. Accu-Cheks before meals and at bedtime with sliding scale coverage. Cardiac diet. Hypoglycemia protocol. (7) Pyuria Is this a current diagnosis for this admission?: Yes Plan: Urinalysis revealed pyuria. Urine culture is positive for C albicans Patient was empirically placed on IV Rocephin; have discontinued. (8) Coronary artery disease Qualifiers: Coronary Disease-Associated Artery/Lesion type: [place] artery [place] vs. transplanted heart: [place] heart Associated angina: angina presence unspecified Qualified Code(s): I25.10 - Atherosclerotic heart disease of [place] coronary artery without angina pectoris Is this a current diagnosis for this admission?: Yes Plan: Stable; no chest pain at present. Continue outpatient medication regimen. (9) Essential hypertension Is this a current diagnosis for this admission?: Yes Plan: Acceptable blood pressures. Continue home medication regimen. - Time Time Spent with patient: 25-34 minutes Medications reviewed and adjusted accordingly: Yes Anticipated discharge: Home with Homehealth Within: within 24 hours
[2019-07-27] MEDS: GUAIFENESIN 600 MG TABLET.SA PO SCH (21:12)
[2019-07-27] MEDS ORDERED: MONTELUKAST SODIUM 10 MG TABLET PO SCH (22:00)
[2019-07-28] MEDS: LEVALBUTEROL HCL NEB 1.25 MG/3 ML AMPUL NEB SCH ×3 (02:35→14:30)
[2019-07-28] MEDS: IPRATROPIUM BROMIDE 0.02% NEB 0.5 MG/2.5 ML AMPUL NEB SCH ×3 (02:35→14:30)
[2019-07-28] MEDS: PANTOPRAZOLE SODIUM 40 MG TABLET.DR PO SCH (06:00)
[2019-07-28 06:31] LABS: HEMOGLOBIN 12.5 g/dL (13.5-17.0); MEAN CORPUSCULAR HEMOGLOBIN 28.8 pg (27.0-33.4); MEAN CORPUSCULAR HGB CONC 32.8 g/dL (32.0-36.0); MEAN CORPUSCULAR VOLUME 88 fl (80-97); PLATELET COUNT 229 10^3/uL (150-450); RED BLOOD COUNT 4.33 10^6/uL (4.35-5.55); WHITE BLOOD COUNT 11.5 10^3/uL (4.0-10.5)
[2019-07-28 06:58] LABS: ANION GAP 5 (5-19); BLOOD UREA NITROGEN 19 mg/dL (7-20); CALCIUM 9.4 mg/dL (8.4-10.2); CARBON DIOXIDE 29 mmol/L (22-30); CHLORIDE 107 mmol/L (98-107); GLUCOSE 91 mg/dL (75-110); POTASSIUM 4.2 mmol/L (3.6-5.0)
[2019-07-28] MEDS: INSULIN REG, HUMAN 100 UNIT/ML 3 ML VIAL (PYX) SUBCUT SCH ×2 (07:19→11:31)
[2019-07-28] MEDS: GLIPIZIDE XL 5 MG TAB.ER.24 PO SCH (07:22)
[2019-07-28] MEDS: BUDESONIDE NEB 0.5 MG/2 ML AMPUL NEB SCH (08:49)
[2019-07-28] MEDS: DOCUSATE SODIUM 100 MG CAPSULE PO SCH (09:26)
[2019-07-28] MEDS: METOPROLOL SUCCINATE 50 MG TAB.SR.24H PO SCH (09:26)
[2019-07-28] MEDS: FUROSEMIDE 20 MG TABLET PO SCH (09:26)
[2019-07-28] MEDS: DIGOXIN 0.125 MG TABLET PO SCH (09:26)
[2019-07-28] MEDS: APIXABAN 5 MG TABLET PO SCH (09:26)
[2019-07-28] MEDS: PREDNISONE 20 MG TABLET PO SCH (09:26)
[2019-07-28] MEDS: GUAIFENESIN 600 MG TABLET.SA PO SCH (09:27)
[2019-07-28] MEDS: ROFLUMILAST 500 MCG TABLET PO SCH (09:27)
[2019-07-28] MEDS: SACUBITRIL/VALSARTAN 24 MG/26 MG TABLET PO SCH (09:27)
[2019-07-28] MEDS ORDERED: LORATADINE 10 MG TABLET PO SCH (10:00)
--- NOTE | 2019-07-28 12:04 | PDOC DISCHARGE SUMMARY ---
Impression - Admit/DC Date/PCP Admission Date/Primary Care Provider: 07/25/19 02:08 MARCELO GIORDANO MD Discharge Date: 07/28/19 - Discharge Diagnosis (1) COPD exacerbation Is this a current diagnosis for this admission?: Yes (2) Bronchiectasis Is this a current diagnosis for this admission?: Yes (3) Acute nontraumatic kidney injury Is this a current diagnosis for this admission?: Yes (4) Chronic respiratory failure with hypoxia Is this a current diagnosis for this admission?: Yes (5) Chronic systolic congestive heart failure Is this a current diagnosis for this admission?: Yes (6) Diabetes mellitus type 2 in nonobese Is this a current diagnosis for this admission?: Yes (7) Pyuria Is this a current diagnosis for this admission?: Yes (8) Coronary artery disease Is this a current diagnosis for this admission?: Yes (9) Essential hypertension Is this a current diagnosis for this admission?: Yes - Additional Information Resuscitation Status: Full Code Discharge Diet: Cardiac, Diabetic Discharge Activity: Activity As Tolerated, Balance Activity w/Rest Referrals: MARCELO GIORDANO MD [Primary Care Provider] - Follow up as needed (LEFT MESSAGE WITH OFFICE TO CALL PATIENT WITH FOLLOW UP APPOINTMENT) Prescriptions: Prednisone [Deltasone 20 mg Tablet] 60 mg PO DAILY #12 tablet Furosemide [Lasix 20 mg Tablet] 20 mg PO DAILY #30 tablet Home Medications: Apixaban [Eliquis 5 mg Tablet] 5 mg PO Q12 10/23/17 Digoxin [Lanoxin 0.125 mg Tablet] 0.125 mg PO DAILY 10/23/17 Metoprolol Succinate [Toprol Xl 50 mg Tab.sr] 50 mg PO DAILY 10/23/17 Omeprazole 20 mg PO DAILY 10/23/17 Roflumilast [Daliresp 500 mcg Tablet] 500 mcg PO DAILY 10/23/17 Tiotropium [place] [Spiriva Handihaler 18 mcg/dose (30 Dose)] 1 cap PO DAILY 10/23/17 Fluticasone/Salmeterol [Advair 250-50 Diskus 14 Dose/Diskus] 1 inh IH Q12 07/16/19 Glipizide [Glucotrol Xl 5 mg Tab.er] 5 mg PO DAILY 07/16/19 Sacubitril/Valsartan [Entresto 24 mg/26 mg Tablet] 1 tab PO Q12 12/08/19 Prednisone 50 mg PO DAILY 5 Days #5 tablet 07/20/19 Albuterol Sulfate [Ventolin Hfa 8 gm Mdi (1 Mdi/ER Disp)] 1 puff IH Q4HP PRN 07/25/19 Loratadine [Claritin] 10 mg PO DAILY 07/25/19 Omeprazole 20 mg PO DAILY 07/25/19 Acetaminophen [Tylenol 325 mg Tablet] 650 mg PO Q4HP PRN tablet 07/27/19 Furosemide [Lasix 20 mg Tablet] 20 mg PO DAILY #30 tablet 07/27/19 Prednisone [Deltasone 20 mg Tablet] 60 mg PO DAILY #12 tablet 07/27/19 History of Present Illiness History of Present Illness: Per H&P by Dr. Grande: HAWA YANG is a 79 year old male who presents emergency room with a 4-day history of generalized weakness. Patient endorses progressive generalized weakness since his discharge from the hospital on 07/20/2019. His generalized weakness has been accompanied by his chronic dyspnea and chronic dyspnea on exertion due to his severe systolic congestive heart failure and severe COPD. He was treated with Levaquin for a pneumonia on his recent hospitalization and finished the prescription 2 days ago. He denies other associated or accompanying signs and symptoms. He has not identified any additional aggravating or ameliorating factors for his generalized weakness. EMS was called to bring patient to the hospital and treated him for an acute exacerbation of COPD with 125 mg of IV Solu-Medrol in route. In the emergency room the patient was found to have a white blood count of 11,500 and was noted to be afebrile and have a normal lactic acid. He required O2 at 4 L/min to maintain his O2 sat in the 90 to 94% range and this is noted to be the amount of oxygen he is receiving on a continuous basis at home. Patient was noted to have pyuria, blood and urine cultures are pending. The patient was started on Rocephin, empirically for a presumed urinary tract infection. He was subsequently admitted to hospital for further evaluation and treatment. Hospital Course Hospital Course: The patient was admitted to the medical floor and monitored on continuous cardiac telemetry. The patient's CY resolved with gentle IV fluids. Urinalysis was suggestive of UTI, however, urine culture was negative for acute infection. He did empirically receive IV Rocephin x1 dose. Patient did have a mild COPD exacerbation that was managed with supplemental oxygen, scheduled and as needed nebulizer treatments, p.o. prednisone, home dose Claritin, Daliresp, Mucinex and Singulair. His symptoms gradually improved and he now reports that he is at his baseline respiratory function. The patient is discharged home with home health nursing. He is advised to follow-up with his primary care provider within 1 week. He is instructed to take his medications as prescribed. He is encouraged to avoid known respiratory triggers. He is instructed to return to the emergency department as needed for concerning symptoms. Physical Exam Vital Signs: Temp Pulse Resp BP Pulse Ox 97.7 F 78 16 123/64 99 07/28/19 11:31 07/28/19 11:31 07/28/19 11:31 07/28/19 11:31 07/28/19 11:31 Intake & Output 07/27/19 07/28/19 07/29/19 06:59 06:59 06:59 Intake Total 2120 2540 Output Total 1999 2150 Balance 120 390 Weight 83 kg 83 kg General appearance: PRESENT: no acute distress, cooperative, well-developed, well-nourished Head exam: PRESENT: atraumatic, normocephalic Eye exam: PRESENT: conjunctiva pink, EOMI, PERRLA. ABSENT: scleral icterus Ear exam: PRESENT: normal external ear exam Mouth exam: PRESENT: moist, tongue midline Neck exam: ABSENT: carotid bruit, JVD, lymphadenopathy, thyromegaly Respiratory exam: PRESENT: clear to auscultation laure, prolonged expiratory phas, rhonchi, symmetrical, unlabored, other - Supplemental oxygen via nasal cannula. ABSENT: rales, wheezes Cardiovascular exam: PRESENT: RRR. ABSENT: diastolic murmur, rubs, systolic murmur Pulses: PRESENT: normal dorsalis pedis pul Vascular exam: PRESENT: normal capillary refill GI/Abdominal exam: PRESENT: normal bowel sounds, soft. ABSENT: distended, guarding, mass, organolmegaly, rebound, tenderness Rectal exam: PRESENT: deferred Extremities exam: PRESENT: full ROM. ABSENT: calf tenderness, clubbing, pedal edema Neurological exam: PRESENT: alert, awake, oriented to person, oriented to place, oriented to time, oriented to situation, CN II-XII grossly intact. ABSENT: motor sensory deficit Psychiatric exam: PRESENT: appropriate affect, normal mood. ABSENT: homicidal ideation, suicidal ideation Skin exam: PRESENT: dry, intact, warm. ABSENT: cyanosis, rash Results Laboratory Results: WBC 11.5 10^3/uL (4.0-10.5) H 07/28/19 05:38 RBC 4.33 10^6/uL (4.35-5.55) L 07/28/19 05:38 Hgb 12.5 g/dL (13.5-17.0) L 07/28/19 05:38 Hct 38.0 % (37.9-51.0) 07/28/19 05:38 MCV 88 fl (80-97) 07/28/19 05:38 MCH 28.8 pg (27.0-33.4) 07/28/19 05:38 MCHC 32.8 g/dL (32.0-36.0) 07/28/19 05:38 RDW 15.0 % (11.5-14.0) H 07/28/19 05:38 Plt Count 229 10^3/uL (150-450) 07/28/19 05:38 Lymph % (Auto) 15.3 % (13-45) 07/24/19 20:30 [place] % (Auto) 6.8 % (3-13) 07/24/19 20:30 Eos % (Auto) 1.4 % (0-6) 07/24/19 20:30 Baso % (Auto) 0.5 % (0-2) 07/24/19 20:30 Absolute Neuts (auto) 9.0 10^3/uL (1.7-8.2) H 07/24/19 20:30 Absolute Lymphs (auto) 1.8 10^3/uL (0.5-4.7) 07/24/19 20:30 Absolute Monos (auto) 0.8 10^3/uL (0.1-1.4) 07/24/19 20:30 Absolute Eos (auto) 0.2 10^3/uL (0.0-0.6) 07/24/19 20:30 Absolute Basos (auto) 0.1 10^3/uL (0.0-0.2) 07/24/19 20:30 Seg Neutrophils % 76.0 % (42-78) 07/24/19 20:30 VBG pH 7.35 (7.30-7.42) 07/26/19 05:03 VBG pCO2 54.0 mmHg (35-63) 07/26/19 05:03 VBG HCO3 29.1 mmol/L (20-32) 07/26/19 05:03 VBG Base Excess 2.4 mmol/L 07/26/19 05:03 Sodium 141.1 mmol/L (137-145) 07/28/19 05:38 Potassium 4.2 mmol/L (3.6-5.0) 07/28/19 05:38 Chloride 107 mmol/L (98-107) 07/28/19 05:38 Carbon Dioxide 29 mmol/L (22-30) 07/28/19 05:38 Anion Gap 5 (5-19) 07/28/19 05:38 BUN 19 mg/dL (7-20) 07/28/19 05:38 Creatinine 0.96 mg/dL (0.52-1.25) 07/28/19 05:38 Est GFR ( Amer) > 60 (>60) 07/28/19 05:38 Est GFR (MDRD) Non-Af > 60 (>60) 07/28/19 05:38 Glucose 91 mg/dL (75-110) 07/28/19 05:38 POC Glucose 103 mg/dL (70-110) 07/28/19 11:14 Lactic Acid 2.7 mmol/L (0.7-2.1) H 07/25/19 10:40 Lactic Acid (Sepsis) 1.1 mmol/L (0.7-2.1) 07/25/19 02:13 Calcium 9.4 mg/dL (8.4-10.2) 07/28/19 05:38 Magnesium 2.2 mg/dL (1.6-2.3) 07/28/19 05:38 Total Bilirubin 0.8 mg/dL (0.2-1.3) 07/24/19 20:30 Direct Bilirubin 0.2 mg/dL (0.0-0.4) 07/24/19 20:30 Neonat Total Bilirubin Not Reportable 07/24/19 20:30 Neonat Direct Bilirubin Not Reportable 07/24/19 20:30 Neonat Indirect Bili Not Reportable 07/24/19 20:30 AST 24 U/L (17-59) 07/24/19 20:30 ALT 24 U/L (<50) 07/24/19 20:30 Alkaline Phosphatase 106 U/L (38-126) 07/24/19 20:30 Creatine Kinase 39 U/L (55-170) L 07/25/19 15:09 CK-MB (CK-2) 2.89 ng/mL (<4.55) 07/25/19 15:09 Troponin I 0.039 ng/mL 07/25/19 15:09 NT-Pro-B Natriuret Pep 1570 pg/mL (<450) H 07/25/19 02:13 Total Protein 7.7 g/dL (6.3-8.2) 07/24/19 20:30 Albumin 4.2 g/dL (3.5-5.0) 07/24/19 20:30 TSH 0.23 uIU/mL (0.47-4.68) L 07/25/19 05:15 Urine Color SOFIA 07/24/19 23:31 Urine Appearance SLIGHTLY-CLOUDY 07/24/19 23:31 Urine pH 5.0 (5.0-9.0) 07/24/19 23:31 Ur Specific [place] 1.024 07/24/19 23:31 Urine Protein 30 mg/dL (NEGATIVE) H 07/24/19 23:31 Urine Glucose (UA) NEGATIVE mg/dL (NEGATIVE) 07/24/19 23:31 Urine Ketones NEGATIVE mg/dL (NEGATIVE) 07/24/19 23:31 Urine Blood NEGATIVE (NEGATIVE) 07/24/19 23:31 Urine Nitrite NEGATIVE (NEGATIVE) 07/24/19 23:31 Urine Bilirubin NEGATIVE (NEGATIVE) 07/24/19 23:31 Urine Urobilinogen NEGATIVE mg/dL (<2.0) 07/24/19 23:31 Ur Leukocyte Esterase MODERATE (NEGATIVE) H 07/24/19 23:31 Urine WBC (Auto) 22 /HPF 07/24/19 23:31 Urine RBC (Auto) 6 /HPF 07/24/19 23:31 U Hyaline Cast (Auto) 1 /LPF 07/24/19 23:31 Urine Bacteria (Auto) TRACE /HPF 07/24/19 23:31 Squamous Epi Cells Auto 4 /HPF 07/24/19 23:31 Urine Mucus (Auto) FEW /LPF 07/24/19 23:31 Urine Ascorbic Acid 40 (NEGATIVE) H 07/24/19 23:31 Digoxin 0.70 ng/mL (0.8-2.0) L 07/27/19 02:22 07/25/19 07/25/19 07/25/19 02:13 08:05 15:09 CK-MB (CK-2) 2.57 2.43 2.89 Troponin I 0.035 0.033 0.039 NT-Pro-B Natriuret Pep 1570 H Impressions: Chest X-Ray 07/24/19 22:13 IMPRESSION: No acute cardiopulmonary findings. Emphysematous hyperinflation. Mild chronic interstitial lung disease. Plan Plan of Treatment: The patient is discharged home with home health nursing. He is advised to follow-up with his primary care provider within 1 week. He is instructed to take his medications as prescribed. He is encouraged to avoid known respiratory triggers. He is advised to return to the emergency department as needed for concerning symptoms. Time Spent: Greater than 30 Minutes Stroke Is this a Stroke Patient?: No Acute Heart Failure - Is this a Heart Failure Patient?: No
[2019-07-28 12:23] VITALS: BP 142/66
== END 2019-07-28 15:34 | disposition home health service (06) | DRG 191 ==
LOC: ER 20:37 → EH 07-25 02:08 → 4W 07-25 08:30
PROVIDERS: ADMIT Emergency Medicine; ATTEND Emergency Medicine
DX: J44.1 Chronic obstructive pulmonary disease with (acute) exacerbation (principal); N17.9 Acute kidney failure, unspecified; J96.11 Chronic respiratory failure with hypoxia; I50.22 Chronic systolic (congestive) heart failure; I11.0 Hypertensive heart disease with heart failure; E11.9 Type 2 diabetes mellitus without complications; R82.81 Pyuria; I25.10 Atherosclerotic heart disease of native coronary artery without angina pectoris; I48.91 Unspecified atrial fibrillation; Z60.2 Problems related to living alone; Z79.01 Long term (current) use of anticoagulants; Z79.52 Long term (current) use of systemic steroids; Z79.899 Other long term (current) drug therapy; Z87.891 Personal history of nicotine dependence; Z79.51 Long term (current) use of inhaled steroids; Z99.81 Dependence on supplemental oxygen
CPT/HCPCS: 36415; 71045; 80048; 80053; 80162; 81001; 82550; 82553; 82803; 82962; 83605; 83735; 83880; 84443; 84484; 85025; 85027; 87040; 87086; 93005; 93010; 96374; 99285; J0696; J1815; J3490; J7030; J7120; J7512